=== PATIENT | female | born 1975 | race African-American/Black ===

== ENCOUNTER 2017-03-09 10:14 | Inpatient (IN) | payer OTHER ==
[2017-03-09 11:07] VITALS: BMI 15.4
[2017-03-09] MEDS ORDERED: ACETAMINOPHEN 325 MG TABLET (FP) PO PRN (14:01)
[2017-03-09] MEDS ORDERED: hydrOXYzine PAMOATE 50 MG CAPSULE (FP) PO PRN (14:01)
[2017-03-09] MEDS ORDERED: MENTHOL/PHENOL 1 EACH UD MM PRN (14:01)
[2017-03-09] MEDS ORDERED: IBUPROFEN 400 MG TABLET (FP) PO PRN (14:01)
[2017-03-09] MEDS ORDERED: MAGNESIUM HYDROX 2400MG/30ML ORAL SUSPENSION 30 ML CUP PO PRN (14:01)
[2017-03-09] MEDS ORDERED: MAG HYDROX/AL HYDROX/SIMETH 30 ML UNIT-DOSE CUP PO PRN (14:01)
[2017-03-09] MEDS ORDERED: guaiFENesin/D-METHORPHAN HB 10 ML UNIT-DOSE CUPS PO PRN (14:01)
[2017-03-09] MEDS ORDERED: chlordiazePOXIDE HCL 25 MG CAPSULE PO PRN (14:01)
[2017-03-09] MEDS ORDERED: LOPERAMIDE HCL 2 MG CAPSULE PO PRN (14:01)
[2017-03-09] MEDS ORDERED: NICOTINE POLACRILEX 2 MG GUM BUC PRN (14:01)
[2017-03-09] MEDS ORDERED: P-EPHED 60MG/TRIPROLIDI 2.5MG TABLET PO PRN (14:01)
[2017-03-09] MEDS ORDERED: MAGNESIUM CITRATE 300 ML BOTTLE PO PRN (14:01)
--- NOTE | 2017-03-09 14:11 | HP ---
CIWA Score - CIWA Score Nausea/Vomitin Muscle Tremors: 4-Moderate,w/Arms Extend Anxiety: 4-Mod. Anxious/Guarded Agitation: 4-Moderately Restless Paroxysmal Sweats: 3 Orientation: 0-Oriented Tacttile Disturbances: 0-None Auditory Disturbances: 0-None Visual Disturbances: 0-None Headache: 0-None Present CIWA-Ar Total Score: 17 Admission ROS BHS - HPI Chief Complaint: Withdrawal sx. Allergies/Adverse Reactions: Allergies Allergy/AdvReac Type Severity Reaction Status Date / Time apple Allergy Severe Difficulty Verified 03/09/17 13:20 Breathing peanut Allergy Severe Difficulty Verified 03/09/17 13:20 Breathing History of Present Illness: 41 y/o woman with a long hx. of alcoholism is admitted for detox.Pt. has been in previous detox,reports 11 months sobriety. She went to [facility] ED last night for detox,however they don't have detox there,kept her over night and sent her here today.AIDS,non-compliant with meds, was on bactrim ds & HAART. Exam Limitations: No Limitations - Ebola screening Have you traveled outside of the country in the last 21 days: No (N) Have you had contact with anyone from an Ebola affected area: No Have you been sick,other than usual withdrawal symptoms: No Do you have a fever: No - Review of Systems Constitutional: Diaphoresis EENT: reports: No Symptoms Reported Respiratory: reports: No Symptoms reported Cardiac: reports: No Symptoms Reported, Chest Tightness GI: reports: No Symptoms Reported, Nausea, Abdominal cramping : reports: No Symptoms Reported Musculoskeletal: reports: Back Pain Integumentary: reports: Sweating Neuro: reports: Tremors Endocrine: reports: No Symptoms Reported Hematology: reports: No Symptoms Reported Psychiatric: reports: No Sypmtoms Reported Other Systems: Reviewed and Negative Patient History - Patient Medical History Hx Anemia: No Hx Asthma: Yes Hx Chronic Obstructive Pulmonary Disease (COPD): No Hx Cancer: No Hx Cardiac Disorders: No Hx Congestive Heart Failure: No Hx Hypertension: No Hx Hypercholesterolemia: No Hx Pacemaker: No HX Cerebrovascular Accident: No Hx Seizures: No Hx Dementia: No Hx Diabetes: No Hx Gastrointestinal Disorders: No Hx Liver Disease: No Hx Genitourinary Disorders: No Hx Sexually Transmitted Disorders: No Hx Renal Disease (ESRD): No Hx Thyroid Disease: No Hx Human Immunodeficiency Virus (HIV): Yes (SINCE 2005, NO FIGUEROA MEDS,CD4+ less than 200 = AIDS,thrush.) Hx Hepatitis C: No Hx Depression: No Hx Suicide Attempt: No Hx Bipolar Disorder: No Hx Schizophrenia: No - Patient Surgical History Past Surgical History: No - PPD History Previous Implant?: Yes Documented Results: Negative w/proof Implanted On Prior R Admission?: Yes Date: 06/26/15 PPD to be Administered?: Yes - Reproductive History Last Menstrual Period: 12/24/16 Patient : No - Smoking Cessation Smoking history: Current every day smoker Have you smoked in the past 12 months: Yes Aproximately how many cigarettes per day: 10 Cigars Per Day: 0 Hx Chewing Tobacco Use: No Initiated information on smoking cessation: Yes 'Breaking Loose' booklet given: 03/09/17 - Substance & Tx. History Hx Alcohol Use: Yes Hx Substance Use: Yes Substance Use Type: Alcohol, Marijuana Hx Substance Use Treatment: Yes (Detox) - Substances Abused Alcohol Route: Oral Frequency: Daily Amount used: bEER(1-2 6 PKS-24OZ CANS) Age of first use: 21 Date of Last Use: 03/09/17 Marijuana/Hashish Route: Smoking Frequency: Daily Amount used: 5 BLUNTS Age of first use: 15 Date of Last Use: 03/08/17 Family Disease History - Family Disease History Family Disease History: Other: Father (asthma,Alcoholic), Mother (Alcoholic) Admission Physical Exam BHS - Vital Signs Vital Signs: Vital Signs - 24 hr 03/09/17 10:59 Temperature 97.1 F L Pulse Rate 100 H Respiratory 16 Rate Blood Pressure 107/75 - Physical General Appearance: Yes: Tremorous, Irritable, Sweating, Anxious HEENTM: Yes: Thrush, Other (tongue with thrush) Respiratory: Yes: Chest Non-Tender, Lungs Clear, Normal Breath Sounds Neck: Yes: Supple Breast: Yes: Breast Exam Deferred Cardiology: Yes: Regular Rhythm, Regular Rate, S1, S2 Abdominal: Yes: Normal Bowel Sounds, Non Tender, Soft Genitourinary: Yes: Within Normal Limits Back: Yes: Within Normal Limits Musculoskeletal: Yes: full range of Motion Extremities: Yes: Tremors Neurological: Yes: Fully Oriented, Alert Integumentary: Yes: Diaphoresis Lymphatic: Yes: Within Normal Limits - Diagnostic (1) Cannabis dependence Current Visit: Yes Status: Chronic (2) Alcohol dependence with uncomplicated withdrawal Current Visit: Yes Status: Acute (3) AIDS (acquired immune deficiency syndrome) Current Visit: Yes Status: Acute (4) Oral thrush Current Visit: Yes Status: Chronic Cleared for Admission [facility] - Detox or Rehab [facility] Level of Care: Medically Managed Detox Regimen/Protocol: Librium [facility] Breath Alcohol Content Breath Alcohol Content: 0.013 Urine Pregancy Test - Result Urine Test Results: Negative- NO Line Present Urine Drug Screen - Results Drug Screen Negative: No Urine Drug Screen Results: THC-Marijuana, BZO-Benzodiazepines, TCA-Tricyclic Antidepress
[2017-03-09] MEDS ORDERED: FLUCONAZOLE 100 MG TABLET (UD) PO ONE (14:19)
[2017-03-09] MEDS ORDERED: chlordiazePOXIDE HCL 25 MG CAPSULE PO ONE (14:45)
[2017-03-09] MEDS: SULFAMETHOXAZOLE/TRIMETHOPRIM 800MG/160MG D.S. TABLET PO SCH (15:16)
[2017-03-09] MEDS: NICOTINE 21 MG/24 HOURS TOPICAL PATCH TD SCH (15:20)
[2017-03-09 16:05] LABS: URINE APPEARANCE CLEAR; URINE BILIRUBIN NEGATIVE (NEGATIVE); URINE BLOOD NEGATIVE (NEGATIVE); URINE COLOR YELLOW; URINE GLUCOSE (UA) NEGATIVE (NEGATIVE); URINE KETONE NEGATIVE (NEGATIVE); URINE NITRITE NEGATIVE (NEGATIVE); URINE PROTEIN NEGATIVE (NEGATIVE); URINE UROBILINOGEN NEGATIVE E.U./dl (0.2-1.0)
[2017-03-09 16:08] LABS: URINE LEUK ESTERASE 3+ (NEGATIVE)
[2017-03-09 16:11] LABS: URINE BACTERIA RARE /hpf (NONE SEEN); URINE RBC 1 /hpf (0-3); URINE WBC 9 /hpf (3-5)
[2017-03-09] MEDS: ALBUTEROL SO4 6.7 GM HFA INHALER IH PRN ×2 (17:28→20:58)
[2017-03-09] MEDS: chlordiazePOXIDE HCL 25 MG CAPSULE PO SCH ×2 (17:33→22:44)
[2017-03-09] MEDS: THIAMINE HCL 100 MG TABLET (FP) PO SCH (22:43)
[2017-03-09] MEDS: diphenhydrAMINE HCL 50 MG CAPSULE PO PRN (22:44)
[2017-03-10] MEDS: chlordiazePOXIDE HCL 25 MG CAPSULE PO SCH ×4 (06:05→22:53)
--- NOTE | 2017-03-10 09:12 | PN ---
[facility] CIWA - CIWA Score Nausea/Vomitin-No Nausea/No Vomiting Muscle Tremors: 4-Moderate,w/Arms Extend Anxiety: 3 Agitation: 3 Paroxysmal Sweats: 3 Orientation: 0-Oriented Tacttile Disturbances: 0-None Auditory Disturbances: 0-None Visual Disturbances: 0-None Headache: 0-None Present CIWA-Ar Total Score: 13 S Progress Note (SOAP) Subjective: irritable sweats i need to see dietary for foods I normally eat agitation interrupted sleep Objective: 03/10/17 09:12 Vital Signs Temperature 97.2 F L 03/10/17 06:00 Pulse Rate 84 03/10/17 06:00 Respiratory Rate 16 03/10/17 06:00 Blood Pressure 128/91 03/10/17 06:00 O2 Sat by Pulse Oximetry (%) Laboratory Tests 03/09/17 15:55 Urine Color Yellow Urine Appearance Clear Urine pH 7.0 Ur Specific [place] <= 1.005 Urine Protein Negative Urine Glucose (UA) Negative Urine Ketones Negative Urine Blood Negative Urine Nitrite Negative Urine Bilirubin Negative Urine Urobilinogen Negative Ur Leukocyte Esterase 3+ H Urine RBC 1 Urine WBC 9 Ur Epithelial Cells Few Urine Bacteria Rare labs pending awake/alert ambulating no acute distress Assessment: 03/10/17 09:13 withdrawal sx Plan: continue detox increase fluids dietary client insights consultant ordered
[2017-03-10] MEDS: FLUCONAZOLE 100 MG TABLET (UD) PO SCH (10:34)
[2017-03-10] MEDS: PRENATAL VITAMINS W/ FOLIC ACID TABLET (FP) PO SCH (10:34)
[2017-03-10] MEDS: SULFAMETHOXAZOLE/TRIMETHOPRIM 800MG/160MG D.S. TABLET PO SCH (10:34)
[2017-03-10] MEDS: NICOTINE 21 MG/24 HOURS TOPICAL PATCH TD SCH (10:36)
[2017-03-10 12:14] LABS: MCHC 32.9 g/dl (32.0-36.0); MEAN CELL VOLUME 100.4 fl (80-96); MEAN PLT VOLUME 8.6 fl (7.5-11.1); PLATELET COUNT 237 K/MM3 (134-434); RDW 12.7 % (11.6-15.6); WHITE BLOOD COUNT 2.8 K/mm3 (4.0-10.0)
[2017-03-10 12:16] LABS: ALBUMIN 2.7 g/dl (3.4-5.0); ANION GAP 13 (8-16); BILIRUBIN,TOTAL 0.7 mg/dL (0.2-1.0); CALCIUM 8.6 mg/dL (8.5-10.1); CO2 25 mmol/L (21-32); CREATININE 0.9 mg/dL (0.55-1.02); GLUCOSE,RANDOM 100 mg/dL (74-106); SGOT/AST 80 U/L (15-37); SGPT/ALT 46 U/L (12-78); TOT PROT 8.3 g/dl (6.4-8.2)
[2017-03-10 12:17] LABS: ALK PHOS 206 U/L (45-117)
--- NOTE | 2017-03-10 14:23 | EKG ---
Test Reason : Blood Pressure : / mmHG Vent. Rate : 088 BPM Atrial Rate : 088 BPM P-R Int : 146 ms QRS Dur : 082 ms QT Int : 360 ms P-R-T Axes : 069 065 068 degrees QTc Int : 435 ms NORMAL SINUS RHYTHM NORMAL ECG NO PREVIOUS ECGS AVAILABLE Confirmed by AYANNA LARIOS MD ([id number]) on 03/10/2017 2:22:36 PM Referred By: Confirmed By:AYANNA LARIOS MD
--- NOTE | 2017-03-10 14:49 | CONSULT ---
[facility] Psychiatric Consult - Data Date of interview: 03/10/17 Admission source: [facility] Identifying data: Readmission to [facility] for this 41 y/o AA female seeking detox treatment for alcohol and cannabis dependence.Patient is single,a mother of two,domiciled,unemployed and reportedly deprived of any source of income. Substance Abuse History: - Smoking Cessation. Smoking history: Current every day smoker. Have you smoked in the past 12 months: Yes. Aproximately how many cigarettes per day: 10. Cigars Per Day: 0. Hx Chewing Tobacco Use: No. Initiated information on smoking cessation: Yes. 'Breaking Loose' booklet given : 03/09/17. - Substance & Tx. History. Hx Alcohol Use: Yes. Hx Substance Use : Yes. Substance Use Type: Alcohol, Marijuana. Hx Substance Use Treatment: Yes (Detox). - Substances Abused. Alcohol. Route: Oral. Frequency: Daily. Amount used: bEER(1-2 6 PKS-24OZ CANS). Age of first use: 21. Date of Last Use: 03/09/17. Marijuana/Hashish. Route: Smoking. Frequency: Daily. Amount used: 5 BLUNTS. Age of first use: 15. Date of Last Use: 03/08/17. Confirmed by patient. Medical History: HIV infection since 2005 (non-compliant with ART medications) and bronchial asthma. Psychiatric History: Patient denies history of psychiatric hospitalizations.Treated with seroquel for a brief period of time (to address insomnia).Diagnosed with MDD and Anxiety Disorder at a detox/rehab facility ( name not recalled by the patient) approximately a year ago.Ms Nieto has been lost to follow up for several months.She requests the addition of seroquel to the current regimen.Patient denies history of suicide attempts. Physical/Sexual Abuse/Trauma History: Patient denies. Additional Comment: Urine Drug Screen Results: THC-Marijuana, BZO- Benzodiazepines, TCA-Tricyclic Antidepressant.Noted. Mental Status Exam - Mental Status Exam Alert and Oriented to: Time, Place, Person Cognitive Function: Good Patient Appearance: Unkempt (frail habitus), Disheveled Mood: Nervous, Withdrawn Affect: Mood Congruent Patient Behavior: Fatigued, Cooperative Speech Pattern: Clear Voice Loudness: Normal Thought Process: Goal Oriented Thought Disorder: Not Present Hallucinations: Denies Suicidal Ideation: Denies Homicidal Ideation: Denies Insight/Judgement: Poor Sleep: Poorly, Difficulty falling asleep Appetite: Poor, Weight loss Muscle strength/Tone: Normal Gait/Station: Normal Psychiatric Findings - Problem List ([place] 1, 2,3) (1) Alcohol dependence with uncomplicated withdrawal Current Visit: Yes Status: Acute (2) Cannabis dependence Current Visit: Yes Status: Chronic (3) Nicotine dependence Current Visit: Yes Status: Chronic (4) Substance induced mood disorder Current Visit: Yes Status: Acute (5) AIDS (acquired immune deficiency syndrome) Current Visit: Yes Status: Chronic (6) Asthma Current Visit: Yes Status: Chronic (7) Cachectic Current Visit: Yes Status: Chronic (8) Oral thrush Current Visit: Yes Status: Chronic (9) Insomnia Current Visit: Yes Status: Acute - Initial Treatment Plan Initial Treatment Plan: Psychoeducation.Detoxification.Seroquel 25 mg po hs.Side effects/benefits are discussed with patient.She agrees with this plan of care.Observation.
[2017-03-10] MEDS: ALBUTEROL SO4 6.7 GM HFA INHALER IH PRN ×2 (18:06→22:53)
[2017-03-10] MEDS: THIAMINE HCL 100 MG TABLET (FP) PO SCH (22:53)
[2017-03-10] MEDS: QUEtiapine FUMARATE 25 MG TABLET (FP) PO SCH (22:53)
[2017-03-10] MEDS: diphenhydrAMINE HCL 50 MG CAPSULE PO PRN (22:53)
[2017-03-11] MEDS: chlordiazePOXIDE HCL 25 MG CAPSULE PO SCH ×2 (06:06→10:32)
[2017-03-11] MEDS: ALBUTEROL SO4 6.7 GM HFA INHALER IH PRN ×2 (06:07→22:30)
--- NOTE | 2017-03-11 09:20 | PN ---
BHS Progress Note (SOAP) Subjective: sweats, lbp Objective: 03/11/17 09:18 Vital Signs Temperature 96.1 F L 03/11/17 06:00 Pulse Rate 92 H 03/11/17 06:00 Respiratory Rate 16 03/11/17 06:00 Blood Pressure 101/76 03/11/17 06:00 O2 Sat by Pulse Oximetry (%) Laboratory Tests 03/09/17 03/10/17 03/10/17 15:55 07:00 07:00 WBC 2.8 L RBC 3.98 Hgb 13.1 D Hct 39.9 MCV 100.4 H MCHC 32.9 RDW 12.7 Plt Count 237 D MPV 8.6 Sodium 133 L Potassium 4.1 Chloride 95 L Carbon Dioxide 25 Anion Gap 13 BUN 12 D Creatinine 0.9 D Creat Clearance w eGFR > 60 Random Glucose 100 Calcium 8.6 Total Bilirubin 0.7 D AST 80 H ALT 46 D Alkaline Phosphatase 206 H D Total Protein 8.3 H Albumin 2.7 L D Urine Color Yellow Urine Appearance Clear Urine pH 7.0 Ur Specific [place] <= 1.005 Urine Protein Negative Urine Glucose (UA) Negative Urine Ketones Negative Urine Blood Negative Urine Nitrite Negative Urine Bilirubin Negative Urine Urobilinogen Negative Ur Leukocyte Esterase 3+ H Urine RBC 1 Urine WBC 9 Ur Epithelial Cells Few Urine Bacteria Rare RPR Titer 03/10/17 07:00 WBC RBC Hgb Hct MCV MCHC RDW Plt Count MPV Sodium Potassium Chloride Carbon Dioxide Anion Gap BUN Creatinine Creat Clearance w eGFR Random Glucose Calcium Total Bilirubin AST ALT Alkaline Phosphatase Total Protein Albumin Urine Color Urine Appearance Urine pH Ur Specific [place] Urine Protein Urine Glucose (UA) Urine Ketones Urine Blood Urine Nitrite Urine Bilirubin Urine Urobilinogen Ur Leukocyte Esterase Urine RBC Urine WBC Ur Epithelial Cells Urine Bacteria RPR Titer Nonreactive 03/11/17 11:34 pt aox3 in nad ambulating Assessment: 03/11/17 09:19 withdrawal sx;s lbp 03/11/17 11:34 Plan: cont. detox increase fluids lidocaine patch ensure bid
[2017-03-11] MEDS: FLUCONAZOLE 100 MG TABLET (UD) PO SCH (10:32)
[2017-03-11] MEDS: SULFAMETHOXAZOLE/TRIMETHOPRIM 800MG/160MG D.S. TABLET PO SCH (10:32)
[2017-03-11] MEDS: PRENATAL VITAMINS W/ FOLIC ACID TABLET (FP) PO SCH (10:32)
[2017-03-11] MEDS: NICOTINE 21 MG/24 HOURS TOPICAL PATCH TD SCH (10:35)
[2017-03-11] MEDS ORDERED: LIDOCAINE 5% TOPICAL PATCH TP ONE (11:36)
[2017-03-11] MEDS: chlordiazePOXIDE 5 MG CAPSULE PO SCH ×2 (17:24→22:27)
[2017-03-11] MEDS ORDERED: LIDOCAINE PATCH REMOVAL MC SCH (22:00)
[2017-03-11] MEDS: QUEtiapine FUMARATE 25 MG TABLET (FP) PO SCH (22:27)
[2017-03-11] MEDS: diphenhydrAMINE HCL 50 MG CAPSULE PO PRN (22:27)
[2017-03-11] MEDS: THIAMINE HCL 100 MG TABLET (FP) PO SCH (22:27)
[2017-03-11] MEDS: LIDOCAINE PATCH REMOVAL MC SCH (22:30)
[2017-03-12] MEDS: chlordiazePOXIDE 5 MG CAPSULE PO SCH ×2 (05:46→11:03)
[2017-03-12] MEDS: ALBUTEROL SO4 6.7 GM HFA INHALER IH PRN ×2 (09:22→22:43)
[2017-03-12] MEDS: SULFAMETHOXAZOLE/TRIMETHOPRIM 800MG/160MG D.S. TABLET PO SCH (11:03)
[2017-03-12] MEDS: FLUCONAZOLE 100 MG TABLET (UD) PO SCH (11:03)
[2017-03-12] MEDS: PRENATAL VITAMINS W/ FOLIC ACID TABLET (FP) PO SCH (11:03)
[2017-03-12] MEDS: LIDOCAINE 5% TOPICAL PATCH TP SCH (11:05)
[2017-03-12] MEDS: NICOTINE 21 MG/24 HOURS TOPICAL PATCH TD SCH (11:06)
--- NOTE | 2017-03-12 11:41 | PN ---
BHS Progress Note (SOAP) Subjective: agitation interrupted sleep Objective: 03/12/17 11:40 Vital Signs Temperature 97.5 F L 03/12/17 10:02 Pulse Rate 106 H 03/12/17 10:02 Respiratory Rate 20 03/12/17 10:02 Blood Pressure 102/73 03/12/17 10:02 O2 Sat by Pulse Oximetry (%) awake/alert ambulating no acute distress Assessment: 03/12/17 11:40 mild withdrawal sx Plan: continue detox ensure bid d/c in am
[2017-03-12] MEDS: chlordiazePOXIDE HCL 10 MG CAPSULE PO SCH ×2 (17:25→22:41)
[2017-03-12] MEDS: QUEtiapine FUMARATE 25 MG TABLET (FP) PO SCH (22:41)
[2017-03-12] MEDS: diphenhydrAMINE HCL 50 MG CAPSULE PO PRN (22:41)
[2017-03-12] MEDS: LIDOCAINE PATCH REMOVAL MC SCH (22:41)
[2017-03-12] MEDS: THIAMINE HCL 100 MG TABLET (FP) PO SCH (22:41)
[2017-03-13] MEDS: chlordiazePOXIDE HCL 10 MG CAPSULE PO SCH (05:45)
[2017-03-13] MEDS: ALBUTEROL SO4 6.7 GM HFA INHALER IH PRN ×2 (05:47→09:47)
[2017-03-13 07:41] VITALS: BP 95/66; PULSE 102; TEMP 97.9
[2017-03-13] MEDS: SULFAMETHOXAZOLE/TRIMETHOPRIM 800MG/160MG D.S. TABLET PO SCH (09:43)
[2017-03-13] MEDS: FLUCONAZOLE 100 MG TABLET (UD) PO SCH (09:43)
[2017-03-13] MEDS: PRENATAL VITAMINS W/ FOLIC ACID TABLET (FP) PO SCH (09:44)
--- NOTE | 2017-03-13 09:46 | DS ---
[facility] Detox Discharge Summary Admission Date: 03/09/17 Discharge Date: 03/13/17 - History Present History: Alcohol Dependence, Cannabis Dependence, Cocaine Dependence - Physical Exam Results Vital Signs: Vital Signs Temperature 97.9 F 03/13/17 07:40 Pulse Rate 102 H 03/13/17 07:40 Respiratory Rate 18 03/13/17 07:40 Blood Pressure 95/66 03/13/17 07:40 O2 Sat by Pulse Oximetry (%) - Treatment Hospital Course: Detox Protocol Followed, Detoxed Safely, Responded well, Discharged Condition Good, Rehab Referral Accepted - Medication Discharge Medications: Ambulatory Orders Albuterol Sulfate Inhaler - [Ventolin Hfa *Inhaler*] 2 inh IH Q4H PRN 05/10/13 - Diagnosis (1) Alcohol dependence with uncomplicated withdrawal Current Visit: Yes Status: Chronic (2) Insomnia Current Visit: Yes Status: Acute (3) Substance induced mood disorder Current Visit: Yes Status: Acute (4) AIDS (acquired immune deficiency syndrome) Current Visit: Yes Status: Chronic (5) Asthma Current Visit: Yes Status: Chronic Qualifiers: Asthma severity: mild intermittent (6) Cachectic Current Visit: Yes Status: Chronic (7) Cannabis dependence Current Visit: Yes Status: Chronic (8) Nicotine dependence Current Visit: Yes Status: Chronic Qualifiers: Nicotine product type: cigarettes Substance use status: uncomplicated Qualified Code(s): F17.210 - Nicotine dependence, cigarettes, uncomplicated (9) Oral thrush Current Visit: Yes Status: Chronic (10) Alcohol-induced mood disorder Current Visit: No Status: Chronic (11) Alcohol-induced sleep disorder Current Visit: No Status: Chronic (12) Cocaine abuse Current Visit: Yes Status: Chronic (13) Depression Current Visit: No Status: Chronic (14) HIV (human immunodeficiency virus infection) Current Visit: No Status: Chronic - AMA Did Patient Leave Against Medical Advice: No
[2017-03-13] MEDS: LIDOCAINE 5% TOPICAL PATCH TP SCH (09:50)
[2017-03-13] MEDS: NICOTINE 21 MG/24 HOURS TOPICAL PATCH TD SCH (09:50)
== END 2017-03-13 10:13 | disposition home or self-care (01) | DRG 775 ==
LOC: YASAS 10:14 → Y6N 13:45
PROVIDERS: ADMIT Internal Medicine Addiction Medicine; ATTEND Internal Medicine Addiction Medicine
PROC: HZ2ZZZZ Detoxification Services for Substance Abuse Treatment (ICD-10-PCS; principal; 2017-03-13)
DX: F10.230 Alcohol dependence with withdrawal, uncomplicated (principal); F12.20 Cannabis dependence, uncomplicated; F17.210 Nicotine dependence, cigarettes, uncomplicated; F19.24 Other psychoactive substance dependence with psychoactive substance-induced mood disorder; F10.24 Alcohol dependence with alcohol-induced mood disorder; F10.282 Alcohol dependence with alcohol-induced sleep disorder; F32.9 Major depressive disorder, single episode, unspecified; B20 Human immunodeficiency virus [HIV] disease; B37.0 Candidal stomatitis
CPT/HCPCS: 36415; 80053; 81003; 81015; 85027; 86593; 93005; 93010

== ENCOUNTER 2017-06-05 10:12 | Inpatient (IN) | payer OTHER ==
[2017-06-05 10:55] VITALS: BMI 19.3
--- NOTE | 2017-06-05 13:59 | HP ---
CIWA Score - CIWA Score Nausea/Vomitin-No Nausea/No Vomiting Muscle Tremors: 4-Moderate,w/Arms Extend Anxiety: 3 Agitation: 4-Moderately Restless Paroxysmal Sweats: 3 Orientation: 0-Oriented Tacttile Disturbances: 0-None Auditory Disturbances: 0-None Visual Disturbances: 0-None Headache: 0-None Present CIWA-Ar Total Score: 14 Admission ROS BHS - HPI Chief Complaint: I am here to detox. Allergies/Adverse Reactions: Allergies Allergy/AdvReac Type Severity Reaction Status Date / Time apple Allergy Severe Difficulty Verified 06/05/17 11:26 Breathing peanut Allergy Severe Difficulty Verified 06/05/17 11:26 Breathing History of Present Illness: pt is a 42yr old female with a history of alcohol dependence seeking detox for treatment. Exam Limitations: No Limitations - Ebola screening Have you traveled outside of the country in the last 21 days: No Have you had contact with anyone from an Ebola affected area: No Have you been sick,other than usual withdrawal symptoms: No Do you have a fever: No - Review of Systems Constitutional: Chills, Diaphoresis, Night Sweats EENT: reports: No Symptoms Reported Respiratory: reports: No Symptoms reported Cardiac: reports: No Symptoms Reported GI: reports: Poor Appetite, Poor Fluid Intake : reports: No Symptoms Reported Musculoskeletal: reports: No Symptoms Reported Integumentary: reports: Flushing, Sweating Neuro: reports: Tingling, Tremors Endocrine: reports: Excessive Sweating, Flushing, Intolerance to Cold, Intolerance to Heat Hematology: reports: No Symptoms Reported Psychiatric: reports: Judgement Intact, Mood/Affect Appropiate, Orientated x3, Agitated, Anxious Other Systems: Reviewed and Negative Patient History - Patient Medical History Hx Anemia: No Hx Asthma: Yes Hx Chronic Obstructive Pulmonary Disease (COPD): No Hx Cancer: No Hx Cardiac Disorders: No Hx Congestive Heart Failure: No Hx Hypertension: Yes Hx Hypercholesterolemia: No Hx Pacemaker: No HX Cerebrovascular Accident: No Hx Seizures: No Hx Dementia: No Hx Diabetes: No Hx Gastrointestinal Disorders: No Hx Liver Disease: No Hx Genitourinary Disorders: No Hx Sexually Transmitted Disorders: No Hx Renal Disease (ESRD): No Hx Thyroid Disease: No Hx Human Immunodeficiency Virus (HIV): Yes (SINCE 2005, NO FIGUEROA MEDS,CD4+ less than 200 = AIDS,thrush.) Hx Hepatitis C: No Hx Depression: Yes Hx Suicide Attempt: No Hx Bipolar Disorder: No Hx Schizophrenia: No - Patient Surgical History Past Surgical History: No - PPD History Previous Implant?: Yes Documented Results: Negative w/proof Implanted On Prior R Admission?: Yes Date: 03/11/17 PPD to be Administered?: No - Reproductive History Patient is a Female of Child Bearing Age (11 -55 yrs old): Yes Last Menstrual Period: 04/23/17 Patient : No - Smoking Cessation Smoking history: Current every day smoker Have you smoked in the past 12 months: Yes Aproximately how many cigarettes per day: 10 Cigars Per Day: 0 Hx Chewing Tobacco Use: No Initiated information on smoking cessation: Yes 'Breaking Loose' booklet given: 06/05/17 - Substance & Tx. History Hx Alcohol Use: Yes Hx Substance Use: No Substance Use Type: Alcohol Hx Substance Use Treatment: Yes (last detox 02/2017) - Substances Abused Alcohol Route: Oral Frequency: Daily Amount used: vodka(1/2 pint)/beer(3-24 oz cans) Age of first use: 21 Date of Last Use: 06/05/17 Family Disease History - Family Disease History Family Disease History: Other: Father (asthma,Alcoholic), Mother (Alcoholic) Admission Physical Exam BHS - Vital Signs Vital Signs: Vital Signs - 24 hr 06/05/17 10:51 Temperature 97.9 F Pulse Rate 95 H Respiratory 20 Rate Blood Pressure 150/90 - Physical General Appearance: Yes: Appropriately Dressed, Moderate Distress, Thin, Tremorous, Irritable, Sweating, Anxious HEENTM: Yes: Hearing grossly Normal, Normal Voice Respiratory: Yes: Lungs Clear, Normal Breath Sounds, No Respiratory Distress Neck: Yes: Within Normal Limits, No masses,lesions,Nodules Breast: Yes: Within Normal Limits Cardiology: Yes: Regular Rhythm, Regular Rate, S1, S2 Abdominal: Yes: Normal Bowel Sounds, Non Tender, Soft Genitourinary: Yes: Within Normal Limits Back: Yes: Normal Inspection Musculoskeletal: Yes: full range of Motion, Back pain Extremities: Yes: Normal Capillary Refill, Normal Inspection, Tremors Neurological: Yes: Fully Oriented, Alert, Normal Response Integumentary: Yes: Normal Color, Diaphoresis Lymphatic: Yes: Within Normal Limits - Diagnostic (1) Hypertension Current Visit: Yes Status: Chronic Qualifiers: Hypertension type: essential hypertension Qualified Code(s): I10 - Essential (primary) hypertension (2) Alcohol dependence with uncomplicated withdrawal Current Visit: Yes Status: Chronic (3) Asthma Current Visit: Yes Status: Chronic Qualifiers: Asthma severity: mild intermittent Asthma complication type: uncomplicated Qualified Code(s): J45.20 - Mild intermittent asthma, uncomplicated (4) Depression Current Visit: No Status: Chronic (5) HIV (human immunodeficiency virus infection) Current Visit: Yes Status: Chronic Comment: has not been taking any antivirals within the past year. pt met with her PMD, blood was drawn to check viral load and CD4 count. results pending. (6) Nicotine dependence Current Visit: Yes Status: Chronic Qualifiers: Nicotine product type: cigarettes Substance use status: uncomplicated Qualified Code(s): F17.210 - Nicotine dependence, cigarettes, uncomplicated Cleared for Admission [facility] - Detox or Rehab [facility] Level of Care: Medically Managed Detox Regimen/Protocol: Librium S Breath Alcohol Content Breath Alcohol Content: 0.012 Urine Pregancy Test - Result Urine Test Results: Negative- NO Line Present Urine Drug Screen - Results Drug Screen Negative: Yes
[2017-06-05] MEDS ORDERED: MENTHOL/PHENOL 1 EACH UD MM PRN (14:01)
[2017-06-05] MEDS ORDERED: IBUPROFEN 400 MG TABLET (FP) PO PRN (14:01)
[2017-06-05] MEDS ORDERED: MAGNESIUM CITRATE 300 ML BOTTLE PO PRN (14:01)
[2017-06-05] MEDS ORDERED: hydrOXYzine PAMOATE 50 MG CAPSULE (FP) PO PRN (14:01)
[2017-06-05] MEDS ORDERED: MAG HYDROX/AL HYDROX/SIMETH 30 ML UNIT-DOSE CUP PO PRN (14:01)
[2017-06-05] MEDS ORDERED: guaiFENesin/D-METHORPHAN HB 10 ML UNIT-DOSE CUPS PO PRN (14:01)
[2017-06-05] MEDS ORDERED: MAGNESIUM HYDROX 2400MG/30ML ORAL SUSPENSION 30 ML CUP PO PRN (14:01)
[2017-06-05] MEDS ORDERED: P-EPHED 60MG/TRIPROLIDI 2.5MG TABLET PO PRN (14:01)
[2017-06-05] MEDS ORDERED: LOPERAMIDE HCL 2 MG CAPSULE PO PRN (14:01)
[2017-06-05] MEDS ORDERED: ACETAMINOPHEN 325 MG TABLET (FP) PO PRN (14:01)
[2017-06-05] MEDS ORDERED: ALBUTEROL SO4 6.7 GM HFA INHALER IH PRN (14:02)
[2017-06-05] MEDS ORDERED: chlordiazePOXIDE HCL 25 MG CAPSULE PO ONE (14:30)
--- NOTE | 2017-06-05 16:16 | EKG ---
Test Reason : Blood Pressure : / mmHG Vent. Rate : 077 BPM Atrial Rate : 077 BPM P-R Int : 156 ms QRS Dur : 088 ms QT Int : 388 ms P-R-T Axes : 046 060 047 degrees QTc Int : 439 ms NORMAL SINUS RHYTHM SEPTAL INFARCT , AGE UNDETERMINED ABNORMAL ECG Confirmed by MD ALEX, ELYSIA ([id number]) on 06/05/2017 4:16:33 PM Referred By: Confirmed By:ELYSIA JOHNSON MD
[2017-06-05] MEDS: chlordiazePOXIDE HCL 25 MG CAPSULE PO SCH ×2 (17:18→22:16)
[2017-06-05] MEDS: NICOTINE POLACRILEX 4 MG GUM BC PRN (17:20)
[2017-06-05 18:23] LABS: URINE APPEARANCE SLCLOUDY; URINE BILIRUBIN NEGATIVE (NEGATIVE); URINE BLOOD NEGATIVE (NEGATIVE); URINE COLOR YELLOW; URINE GLUCOSE (UA) NEGATIVE (NEGATIVE); URINE KETONE NEGATIVE (NEGATIVE); URINE NITRITE NEGATIVE (NEGATIVE); URINE PROTEIN NEGATIVE (NEGATIVE); URINE UROBILINOGEN NEGATIVE mg/dL (0.2-1.0)
[2017-06-05 18:24] LABS: URINE LEUK ESTERASE 3+ (NEGATIVE)
[2017-06-05 18:36] LABS: URINE MUCUS RARE; URINE RBC 1 /hpf (0-3); URINE WBC 67 /hpf (3-5)
[2017-06-05] MEDS: THIAMINE HCL 100 MG TABLET (FP) PO SCH (22:16)
[2017-06-05] MEDS: diphenhydrAMINE HCL 50 MG CAPSULE PO PRN (22:17)
[2017-06-06] MEDS: chlordiazePOXIDE HCL 25 MG CAPSULE PO SCH ×4 (05:53→22:20)
[2017-06-06] MEDS: amLODIPine BESYLATE 10 MG TABLET (FP) PO SCH (10:33)
[2017-06-06] MEDS: PRENATAL VITAMINS W/ FOLIC ACID TABLET (FP) PO SCH (10:33)
[2017-06-06] MEDS: FLUCONAZOLE 100 MG TABLET (UD) PO SCH (10:33)
[2017-06-06] MEDS: ASPIRIN 81 MG CHEWABLE TABLETS PO SCH (10:33)
[2017-06-06] MEDS: SULFAMETHOXAZOLE/TRIMETHOPRIM 800MG/160MG D.S. TABLET PO SCH (10:34)
[2017-06-06] MEDS: NICOTINE 21 MG/24 HOURS TOPICAL PATCH TD SCH (10:39)
[2017-06-06 10:49] LABS: ALBUMIN 4.1 g/dl (3.4-5.0); ANION GAP 10 (8-16); CALCIUM 8.8 mg/dL (8.5-10.1); CO2 25 mmol/L (21-32); CREATININE 0.6 mg/dL (0.55-1.02); GLUCOSE,RANDOM 85 mg/dL (74-106); MCH 33.2 pg (25.7-33.7); MCHC 33.3 g/dl (32.0-36.0); MEAN CELL VOLUME 99.8 fl (80-96); MEAN PLT VOLUME 8.4 fl (7.5-11.1); PLATELET COUNT 238 K/MM3 (134-434); SGOT/AST 72 U/L (15-37); SGPT/ALT 46 U/L (12-78); WHITE BLOOD COUNT 3.7 K/mm3 (4.0-10.0)
[2017-06-06 10:51] LABS: ALK PHOS 144 U/L (45-117); BILIRUBIN,TOTAL 0.3 mg/dL (0.2-1.0); TOT PROT 9.2 g/dl (6.4-8.2)
[2017-06-06] MEDS: LOSARTAN 50MG/HCTZ 12.5MG 1 TAB (FP) PO SCH (13:14)
--- NOTE | 2017-06-06 15:51 | PN ---
S CIWA - CIWA Score Nausea/Vomitin Muscle Tremors: 3 Anxiety: 3 Agitation: 2 Paroxysmal Sweats: 1-Minimal Palms Moist Orientation: 0-Oriented Tacttile Disturbances: 1-Very Mild Itch/Numbness Auditory Disturbances: 1-Very Mild Visual Disturbances: 0-None Headache: 2-Mild CIWA-Ar Total Score: 16 S Progress Note (SOAP) Subjective: ALERT,IRRITABLE,ANXIOUS,INTERRUPTED SLEEP,TREMOR Objective: 06/06/17 15:49 Vital Signs Temperature 97.9 F 06/06/17 14:59 Pulse Rate 89 06/06/17 14:59 Respiratory Rate 18 06/06/17 14:59 Blood Pressure 135/69 06/06/17 14:59 O2 Sat by Pulse Oximetry (%) EKG NSR NO CHEST PAIN,NO SOB,NO DIZZINESS Laboratory Last Values WBC 3.7 K/mm3 (4.0-10.0) L D 06/06/17 06:10 RBC 3.86 M/mm3 (3.60-5.2) 06/06/17 06:10 Hgb 12.8 GM/dL (10.7-15.3) 06/06/17 06:10 Hct 38.5 % (32.4-45.2) 06/06/17 06:10 MCV 99.8 fl (80-96) H 06/06/17 06:10 MCH 33.2 pg (25.7-33.7) 06/06/17 06:10 MCHC 33.3 g/dl (32.0-36.0) 06/06/17 06:10 RDW 13.0 % (11.6-15.6) 06/06/17 06:10 Plt Count 238 K/MM3 (134-434) 06/06/17 06:10 MPV 8.4 fl (7.5-11.1) 06/06/17 06:10 Sodium 140 mmol/L (136-145) 06/06/17 06:10 Potassium 3.9 mmol/L (3.5-5.1) 06/06/17 06:10 Chloride 105 mmol/L (98-107) D 06/06/17 06:10 Carbon Dioxide 25 mmol/L (21-32) 06/06/17 06:10 Anion Gap 10 (8-16) 06/06/17 06:10 BUN 11 mg/dL (7-18) 06/06/17 06:10 Creatinine 0.6 mg/dL (0.55-1.02) D 06/06/17 06:10 Creat Clearance w eGFR > 60 (>60) 06/06/17 06:10 Random Glucose 85 mg/dL (74-106) 06/06/17 06:10 Calcium 8.8 mg/dL (8.5-10.1) 06/06/17 06:10 Total Bilirubin 0.3 mg/dL (0.2-1.0) D 06/06/17 06:10 AST 72 U/L (15-37) H 06/06/17 06:10 ALT 46 U/L (12-78) 06/06/17 06:10 Alkaline Phosphatase 144 U/L (45-117) H D 06/06/17 06:10 Total Protein 9.2 g/dl (6.4-8.2) H 06/06/17 06:10 Albumin 4.1 g/dl (3.4-5.0) D 06/06/17 06:10 Urine Color Yellow 06/05/17 17:50 Urine Appearance Slcloudy 06/05/17 17:50 Urine pH 6.0 (5.0-8.0) 06/05/17 17:50 Ur Specific [place] 1.020 (1.005-1.025) 06/05/17 17:50 Urine Protein Negative (NEGATIVE) 06/05/17 17:50 Urine Glucose (UA) Negative (NEGATIVE) 06/05/17 17:50 Urine Ketones Negative (NEGATIVE) 06/05/17 17:50 Urine Blood Negative (NEGATIVE) 06/05/17 17:50 Urine Nitrite Negative (NEGATIVE) 06/05/17 17:50 Urine Bilirubin Negative (NEGATIVE) 06/05/17 17:50 Urine Urobilinogen Negative mg/dL (0.2-1.0) 06/05/17 17:50 Ur Leukocyte Esterase 3+ (NEGATIVE) H 06/05/17 17:50 Urine RBC 1 /hpf (0-3) 06/05/17 17:50 Urine WBC 67 /hpf (3-5) 06/05/17 17:50 Ur Epithelial Cells Many /hpf (FEW) 06/05/17 17:50 Urine Mucus Rare 06/05/17 17:50 RPR Titer Nonreactive (NONREACTIVE) 06/06/17 06:10 Assessment: 06/06/17 15:50 WITHDRAWAL SYMPTOM Plan: CONTINUE DETOX,UA
--- NOTE | 2017-06-06 18:09 | CONSULT ---
[facility] Psychiatric Consult - Data Date of interview: 06/06/17 Admission source: [facility] Identifying data: Another admission to [facility] for this 42 y/o AA female seeking detox treatment on for alcohol dependence.Patient is single,a mother of two,undomiciled,unemployed and supported on [facility] benefits. Substance Abuse History: Confirmed by patient in this interview. Smoking Cessation. Smoking history: Current every day smoker. Have you smoked in the past 12 months: Yes. Aproximately how many cigarettes per day: 10. Cigars Per Day: 0. Hx Chewing Tobacco Use: No. Initiated information on smoking cessation : Yes. 'Breaking Loose' booklet given: 06/05/17. - Substance & Tx. History. Hx Alcohol Use: Yes. Hx Substance Use: No. Substance Use Type: Alcohol. Hx Substance Use Treatment: Yes (last detox 02/2017). - Substances Abused. Alcohol. Route: Oral. Frequency: Daily. Amount used: vodka(1/2 pint)/beer(3- 24 oz cans). Age of first use: 21. Date of Last Use: 06/05/17 Medical History: HIV infection since 2005 (non-compliant with ART medications), hypertension and bronchial asthma. Psychiatric History: Patient denies history of psychiatric hospitalizations.No regular OPD care.Ms Nieto gets prescribed seroquel 100 mg/hs from detox/rehab institutions.She denies history of suicide attempts. Physical/Sexual Abuse/Trauma History: Patient denies history of abuse. Additional Comment: Drug Screen is negative. Mental Status Exam - Mental Status Exam Alert and Oriented to: Time, Place, Person Cognitive Function: Good Patient Appearance: Well Groomed (frail habitus) Mood: Nervous, Withdrawn Affect: Constricted Patient Behavior: Fatigued, Appropriate, Cooperative Speech Pattern: Clear, Appropriate Voice Loudness: Normal Thought Process: Goal Oriented Thought Disorder: Not Present Hallucinations: Denies Suicidal Ideation: Denies Homicidal Ideation: Denies Insight/Judgement: Poor Sleep: Poorly, Difficulty falling asleep (wants seroquel) Appetite: Poor, Weight loss Muscle strength/Tone: Normal Gait/Station: Normal Psychiatric Findings - Problem List ([place] 1, 2,3) (1) Alcohol dependence with uncomplicated withdrawal Status: Chronic (2) Nicotine dependence Status: Chronic Qualifiers: Nicotine product type: cigarettes Substance use status: uncomplicated Qualified Code(s): F17.210 - Nicotine dependence, cigarettes, uncomplicated (3) Substance induced mood disorder Status: Acute (4) Asthma Status: Chronic Qualifiers: Asthma severity: mild intermittent Asthma complication type: uncomplicated Qualified Code(s): J45.20 - Mild intermittent asthma, uncomplicated (5) HIV (human immunodeficiency virus infection) Status: Chronic Comment: has not been taking any antivirals within the past year. pt met with her PMD, blood was drawn to check viral load and CD4 count. results pending. (6) Hypertension Status: Chronic Qualifiers: Hypertension type: essential hypertension Qualified Code(s): I10 - Essential (primary) hypertension (7) Insomnia Status: Acute - Initial Treatment Plan Initial Treatment Plan: Psychoeducation.Detoxification.Seroquel 50 mg po hs.Side effects/benefits discussed with patient.Ms Nieto is in agreement with this careplan.Observation.
[2017-06-06] MEDS: QUEtiapine FUMARATE 100 MG TABLET (FP) PO SCH (19:57)
[2017-06-06] MEDS: NICOTINE POLACRILEX 4 MG GUM BC PRN (21:12)
[2017-06-06] MEDS: diphenhydrAMINE HCL 50 MG CAPSULE PO PRN (22:20)
[2017-06-06] MEDS: THIAMINE HCL 100 MG TABLET (FP) PO SCH (22:20)
[2017-06-07] MEDS: chlordiazePOXIDE HCL 25 MG CAPSULE PO SCH ×2 (05:21→10:16)
[2017-06-07] MEDS: NICOTINE POLACRILEX 4 MG GUM BC PRN ×3 (07:47→17:35)
[2017-06-07] MEDS: FLUCONAZOLE 100 MG TABLET (UD) PO SCH (10:16)
[2017-06-07] MEDS: ASPIRIN 81 MG CHEWABLE TABLETS PO SCH (10:16)
[2017-06-07] MEDS: SULFAMETHOXAZOLE/TRIMETHOPRIM 800MG/160MG D.S. TABLET PO SCH (10:16)
[2017-06-07] MEDS: PRENATAL VITAMINS W/ FOLIC ACID TABLET (FP) PO SCH (10:16)
[2017-06-07] MEDS: amLODIPine BESYLATE 10 MG TABLET (FP) PO SCH (10:16)
[2017-06-07] MEDS: LOSARTAN 50MG/HCTZ 12.5MG 1 TAB (FP) PO SCH (10:17)
[2017-06-07] MEDS: NICOTINE 21 MG/24 HOURS TOPICAL PATCH TD SCH (10:19)
[2017-06-07] MEDS: chlordiazePOXIDE HCL 25 MG CAPSULE PO PRN ×2 (12:58→21:19)
--- NOTE | 2017-06-07 15:00 | PN ---
S CIWA - CIWA Score Nausea/Vomitin Muscle Tremors: 3 Anxiety: 3 Agitation: 2 Paroxysmal Sweats: 1-Minimal Palms Moist Orientation: 0-Oriented Tacttile Disturbances: 1-Very Mild Itch/Numbness Auditory Disturbances: 1-Very Mild Visual Disturbances: 1-Very Mild Sensitivity Headache: 2-Mild CIWA-Ar Total Score: 17 BHS Progress Note (SOAP) Subjective: ALERT,IRRITABLE,ANXIOUS,INTERRUPTED SLEEP,TREMOR Objective: 06/07/17 14:59 Vital Signs Temperature 97.9 F 06/07/17 14:07 Pulse Rate 100 H 06/07/17 14:07 Respiratory Rate 18 06/07/17 14:07 Blood Pressure 120/84 06/07/17 14:07 O2 Sat by Pulse Oximetry (%) 06/07/17 14:59 Laboratory Last Values WBC 3.7 K/mm3 (4.0-10.0) L D 06/06/17 06:10 RBC 3.86 M/mm3 (3.60-5.2) 06/06/17 06:10 Hgb 12.8 GM/dL (10.7-15.3) 06/06/17 06:10 Hct 38.5 % (32.4-45.2) 06/06/17 06:10 MCV 99.8 fl (80-96) H 06/06/17 06:10 MCH 33.2 pg (25.7-33.7) 06/06/17 06:10 MCHC 33.3 g/dl (32.0-36.0) 06/06/17 06:10 RDW 13.0 % (11.6-15.6) 06/06/17 06:10 Plt Count 238 K/MM3 (134-434) 06/06/17 06:10 MPV 8.4 fl (7.5-11.1) 06/06/17 06:10 Sodium 140 mmol/L (136-145) 06/06/17 06:10 Potassium 3.9 mmol/L (3.5-5.1) 06/06/17 06:10 Chloride 105 mmol/L (98-107) D 06/06/17 06:10 Carbon Dioxide 25 mmol/L (21-32) 06/06/17 06:10 Anion Gap 10 (8-16) 06/06/17 06:10 BUN 11 mg/dL (7-18) 06/06/17 06:10 Creatinine 0.6 mg/dL (0.55-1.02) D 06/06/17 06:10 Creat Clearance w eGFR > 60 (>60) 06/06/17 06:10 Random Glucose 85 mg/dL (74-106) 06/06/17 06:10 Calcium 8.8 mg/dL (8.5-10.1) 06/06/17 06:10 Total Bilirubin 0.3 mg/dL (0.2-1.0) D 06/06/17 06:10 AST 72 U/L (15-37) H 06/06/17 06:10 ALT 46 U/L (12-78) 06/06/17 06:10 Alkaline Phosphatase 144 U/L (45-117) H D 06/06/17 06:10 Total Protein 9.2 g/dl (6.4-8.2) H 06/06/17 06:10 Albumin 4.1 g/dl (3.4-5.0) D 06/06/17 06:10 Urine Color Yellow 06/05/17 17:50 Urine Appearance Slcloudy 06/05/17 17:50 Urine pH 6.0 (5.0-8.0) 06/05/17 17:50 Ur Specific [place] 1.020 (1.005-1.025) 06/05/17 17:50 Urine Protein Negative (NEGATIVE) 06/05/17 17:50 Urine Glucose (UA) Negative (NEGATIVE) 06/05/17 17:50 Urine Ketones Negative (NEGATIVE) 06/05/17 17:50 Urine Blood Negative (NEGATIVE) 06/05/17 17:50 Urine Nitrite Negative (NEGATIVE) 06/05/17 17:50 Urine Bilirubin Negative (NEGATIVE) 06/05/17 17:50 Urine Urobilinogen Negative mg/dL (0.2-1.0) 06/05/17 17:50 Ur Leukocyte Esterase 3+ (NEGATIVE) H 06/05/17 17:50 Urine RBC 1 /hpf (0-3) 06/05/17 17:50 Urine WBC 67 /hpf (3-5) 06/05/17 17:50 Ur Epithelial Cells Many /hpf (FEW) 06/05/17 17:50 Urine Mucus Rare 06/05/17 17:50 RPR Titer Nonreactive (NONREACTIVE) 06/06/17 06:10 Assessment: 06/07/17 15:02 WITHDRAWAL SYMPTOM Plan: CONTINUE DETOX,REPEAT UA
[2017-06-07] MEDS: chlordiazePOXIDE 5 MG CAPSULE PO SCH ×2 (17:32→23:16)
[2017-06-07] MEDS: QUEtiapine FUMARATE 100 MG TABLET (FP) PO SCH (19:59)
[2017-06-07] MEDS: THIAMINE HCL 100 MG TABLET (FP) PO SCH (23:16)
[2017-06-08] MEDS: chlordiazePOXIDE 5 MG CAPSULE PO SCH ×2 (05:44→10:28)
--- NOTE | 2017-06-08 09:12 | PN ---
Psychiatric Progress Note Vital Signs: Vital Signs Period Temp Pulse Resp BP Sys/Baird Pulse Ox Last 24 Hr 97.2 F-98.6 F 91-100 18-20 108-122/66-92 Date of Session: 06/08/17 Chief Complaint:: Insomnia HPI: Patient reports taking prior to admission Seroquel 150mg po qhs, currently reports insomnia Current Medications: Active Medications Generic Name Dose Route Start Last Admin Trade Name Freq PRN Reason Stop Dose Admin Acetaminophen 650 mg 06/05/17 14:01 Tylenol - PO Q4H PRN FEVER OR PAIN Al Hydroxide/Mg Hydroxide 30 ml 06/05/17 14:01 Mylanta Oral Suspension - PO Q6H PRN DYSPEPSIA Albuterol Sulfate 2 puff 06/05/17 14:02 Ventolin Hfa Inhaler - IH Q4H PRN ASTHMA Amlodipine Besylate 10 mg 06/08/17 10:00 Norvasc - PO DAILY ARMANDO Aspirin 81 mg 06/08/17 10:00 Asa - PO DAILY ARMANDO Chlordiazepoxide HCl 10 mg 06/08/17 17:00 Librium - PO 06/09/17 11:01 [id number] ARMANDO Chlordiazepoxide HCl 25 mg 06/05/17 14:01 06/07/17 21:19 Librium - PO 06/08/17 14:00 25 mg Q4H PRN Administration WITHDRAWAL(CONT SUBST) Chlordiazepoxide HCl 15 mg 06/07/17 17:00 06/08/17 05:44 Librium - PO 06/08/17 11:01 15 mg [id number] ARMANDO Administration Diphenhydramine HCl 50 mg 06/05/17 14:01 06/06/17 22:20 Benadryl - PO 50 mg HSMR1 PRN Administration INSOMNIA Eucalyptus/Menthol/Phenol/Sorbitol 1 each 06/05/17 14:01 Cepastat Lozenge - MM Q4H PRN SORE THROAT Fluconazole 100 mg 06/06/17 10:00 06/07/17 10:16 Diflucan - PO 100 mg DAILY ARMANDO Administration Guaifenesin 10 ml 06/05/17 14:01 Robitussin Dm - PO Q6H PRN COUGH HCTZ/Losartan Potassium 1 tab 06/08/17 10:00 Hyzaar - PO DAILY ARMANDO Hydroxyzine Pamoate 50 mg 06/05/17 14:01 Vistaril - PO Q4H PRN AGITATION Ibuprofen 400 mg 06/05/17 14:01 Motrin - PO Q6H PRN SEVERE PAIN Loperamide HCl 4 mg 06/05/17 14:01 Imodium - PO Q6H PRN DIARRHEA Magnesium Citrate 300 ml 06/05/17 14:01 Citroma - PO Q48H PRN CONSTIPATION Magnesium Hydroxide 30 ml 06/05/17 14:01 Milk Of Magnesia - PO DAILY PRN CONSTIPATION Nicotine 21 mg 06/06/17 10:00 06/07/17 10:19 Nicoderm Patch - TD Not Given DAILY ARMANDO Nicotine Polacrilex 4 mg 06/05/17 14:01 06/07/17 17:35 Nicorette Gum - BC 4 mg Q2H PRN Administration NICOTINE REPLACEMENT RX Multivit/Folic Acid/Iron 1 tab 06/06/17 10:00 06/07/17 10:16 Vitamins (Sjr) - PO 1 tab DAILY [facility] Administration Pseudoephedrine/Triprolidine 1 combo 06/05/17 14:01 Actifed - PO TID PRN NASAL CONGESTION Quetiapine Fumarate 100 mg 06/06/17 20:00 06/07/17 19:59 Seroquel - PO 100 mg HS@2000 [facility] Administration Thiamine HCl 100 mg 06/05/17 22:00 06/07/17 23:16 Vitamin B1 - PO Not Given [facility] Trimethoprim/Sulfamethoxazole 1 each 06/06/17 10:00 06/07/17 10:16 Bactrim Ds - PO 1 each DAILY [facility] Administration Medication(s) Change(s): Seroquel 150mg po qhs Mental Status Exam - Mental Status Exam Alert and Oriented to: Place, Person Cognitive Function: Fair Patient Appearance: Unkempt Mood: Anxious, Irritable Affect: Mood Congruent Patient Behavior: Cooperative Speech Pattern: Appropriate Voice Loudness: Normal Thought Process: Goal Oriented Thought Disorder: Being Controlled Hallucinations: Denies Suicidal Ideation: Denies Homicidal Ideation: Denies Insight/Judgement: Fair Sleep: Difficulty falling asleep Appetite: Weight loss Muscle strength/Tone: Mild Hypotonicity Gait/Station: Normal Additional Comments: Seroquel 150mg po qhs Psychiatric Treatment Plan - Problem List (1) Alcohol dependence with uncomplicated withdrawal Current Visit: Yes (2) Nicotine dependence Current Visit: Yes Qualifiers: Nicotine product type: cigarettes Substance use status: uncomplicated Qualified Code(s): F17.210 - Nicotine dependence, cigarettes, uncomplicated (3) Substance induced mood disorder Current Visit: Yes (4) Depression Current Visit: No (5) Drug-induced mood disorder Current Visit: Yes Initial treatment plan: Seroquel 150mg po qhs
[2017-06-08] MEDS ORDERED: LOSARTAN 50MG/HCTZ 12.5MG 1 TAB (FP) PO SCH ×2 (10:00)
[2017-06-08] MEDS ORDERED: amLODIPine BESYLATE 10 MG TABLET (FP) PO SCH (10:00)
[2017-06-08] MEDS ORDERED: ASPIRIN 81 MG CHEWABLE TABLETS PO SCH (10:00)
[2017-06-08 10:09] LABS: URINE APPEARANCE CLEAR; URINE BILIRUBIN NEGATIVE (NEGATIVE); URINE BLOOD NEGATIVE (NEGATIVE); URINE COLOR LTYELLOW; URINE GLUCOSE (UA) NEGATIVE (NEGATIVE); URINE KETONE NEGATIVE (NEGATIVE); URINE NITRITE NEGATIVE (NEGATIVE); URINE PROTEIN NEGATIVE (NEGATIVE); URINE UROBILINOGEN NEGATIVE mg/dL (0.2-1.0)
[2017-06-08 10:12] LABS: URINE LEUK ESTERASE 2+ (NEGATIVE)
[2017-06-08 10:14] LABS: URINE HYALINE CAST 1 /lpf; URINE MUCUS RARE; URINE RBC 1 /hpf (0-3); URINE WBC 7 /hpf (3-5)
[2017-06-08] MEDS: FLUCONAZOLE 100 MG TABLET (UD) PO SCH (10:28)
[2017-06-08] MEDS: SULFAMETHOXAZOLE/TRIMETHOPRIM 800MG/160MG D.S. TABLET PO SCH (10:28)
[2017-06-08] MEDS: PRENATAL VITAMINS W/ FOLIC ACID TABLET (FP) PO SCH (10:28)
[2017-06-08] MEDS: NICOTINE 21 MG/24 HOURS TOPICAL PATCH TD SCH (10:30)
--- NOTE | 2017-06-08 11:11 | PN ---
BHS Progress Note (SOAP) Subjective: irritable I need my BP medication given to me at 8am Objective: 06/08/17 11:10 Vital Signs Temperature 98.2 F 06/08/17 10:00 Pulse Rate 102 H 06/08/17 10:00 Respiratory Rate 20 06/08/17 10:00 Blood Pressure 110/60 06/08/17 10:00 O2 Sat by Pulse Oximetry (%) awake/alert ambulating no acute distress Assessment: 06/08/17 11:11 mild withdrawal sx Plan: continue detox increase fluids BP ordered for 8am as per pt request d/c in am
[2017-06-08] MEDS ORDERED: HALOPERIDOL 1 MG TABLET (FP) PO PRN (11:21)
[2017-06-08] MEDS ORDERED: diphenhydrAMINE HCL 50 MG CAPSULE PO ONE (12:45)
[2017-06-08] MEDS ORDERED: HALOPERIDOL 2 MG TABLET PO ONE (12:45)
[2017-06-08] MEDS: NICOTINE POLACRILEX 4 MG GUM BC PRN ×2 (12:52→15:35)
[2017-06-08] MEDS: chlordiazePOXIDE HCL 10 MG CAPSULE PO SCH ×2 (17:22→22:26)
[2017-06-08] MEDS ORDERED: QUEtiapine FUMARATE 50 MG TABLET PO SCH (20:00)
[2017-06-08] MEDS: THIAMINE HCL 100 MG TABLET (FP) PO SCH (22:26)
[2017-06-09] MEDS: chlordiazePOXIDE HCL 10 MG CAPSULE PO SCH ×2 (05:48→11:10)
[2017-06-09] MEDS ORDERED: LOSARTAN 50MG/HCTZ 12.5MG 1 TAB (FP) PO SCH (08:00)
[2017-06-09] MEDS ORDERED: amLODIPine BESYLATE 10 MG TABLET (FP) PO SCH (08:00)
[2017-06-09] MEDS ORDERED: ASPIRIN 81 MG CHEWABLE TABLETS PO SCH (08:00)
--- NOTE | 2017-06-09 09:04 | DS ---
[facility] Detox Discharge Summary Admission Date: 06/05/17 Discharge Date: 06/09/17 - History Present History: Alcohol Dependence - Physical Exam Results Vital Signs: Vital Signs Temperature 97.3 F L 06/09/17 06:00 Pulse Rate 105 H 06/09/17 06:00 Respiratory Rate 16 06/09/17 06:00 Blood Pressure 100/73 06/09/17 06:00 O2 Sat by Pulse Oximetry (%) - Treatment Hospital Course: Detox Protocol Followed, Detoxed Safely, Responded well, Discharged Condition Good, Rehab Referral Accepted - Medication Discharge Medications: Ambulatory Orders Albuterol Sulfate Inhaler - [Ventolin HFA Inhaler -] 2 inh IH Q4H PRN #1 inh 11/28 Quetiapine Fumarate [Seroquel] 100 mg PO HS #30 tablet 05/21/17 Amlodipine Besylate [Norvasc -] 10 mg PO DAILY 06/05/17 Aspirin [ASA -] 81 mg PO DAILY 06/05/17 Fluconazole [Diflucan -] 100 mg PO DAILY 06/05/17 Losartan/Hydrochlorothiazide [Losartan-Hctz 50-12.5 mg Tab] 1 each PO DAILY Sulfamethoxazole/Trimethoprim [Bactrim Ds -] 1 tab PO DAILY 06/05/17 Quetiapine Fumarate [Seroquel] 100 mg PO HS #30 tablet 06/06/17 Quetiapine Fumarate [Seroquel] 150 mg PO HS #30 tablet 06/08/17 - Diagnosis (1) Hypertension Current Visit: Yes Status: Chronic Qualifiers: Hypertension type: essential hypertension Qualified Code(s): I10 - Essential (primary) hypertension (2) Alcohol dependence with uncomplicated withdrawal Current Visit: Yes Status: Chronic (3) Asthma Current Visit: Yes Status: Chronic Qualifiers: Asthma severity: mild intermittent Asthma complication type: uncomplicated Qualified Code(s): J45.20 - Mild intermittent asthma, uncomplicated (4) Depression Current Visit: No Status: Chronic (5) HIV (human immunodeficiency virus infection) Current Visit: Yes Status: Chronic (6) Nicotine dependence Current Visit: Yes Status: Chronic Qualifiers: Nicotine product type: cigarettes Substance use status: uncomplicated Qualified Code(s): F17.210 - Nicotine dependence, cigarettes, uncomplicated - AMA Did Patient Leave Against Medical Advice: No (yony ATS)
[2017-06-09 10:33] VITALS: BP 101/68; PULSE 93; TEMP 97.7
[2017-06-09] MEDS: SULFAMETHOXAZOLE/TRIMETHOPRIM 800MG/160MG D.S. TABLET PO SCH (11:06)
[2017-06-09] MEDS: FLUCONAZOLE 100 MG TABLET (UD) PO SCH (11:07)
[2017-06-09] MEDS: NICOTINE 21 MG/24 HOURS TOPICAL PATCH TD SCH (11:07)
[2017-06-09] MEDS: PRENATAL VITAMINS W/ FOLIC ACID TABLET (FP) PO SCH (11:08)
== END 2017-06-09 09:38 | disposition home or self-care (01) | DRG 775 ==
LOC: YASAS 10:12 → Y6N 12:56
PROVIDERS: ADMIT Internal Medicine Addiction Medicine; ATTEND Internal Medicine Addiction Medicine
PROC: HZ2ZZZZ Detoxification Services for Substance Abuse Treatment (ICD-10-PCS; principal; 2017-06-09)
DX: F10.230 Alcohol dependence with withdrawal, uncomplicated (principal); F17.210 Nicotine dependence, cigarettes, uncomplicated; F32.9 Major depressive disorder, single episode, unspecified; F19.24 Other psychoactive substance dependence with psychoactive substance-induced mood disorder; G47.00 Insomnia, unspecified; I10 Essential (primary) hypertension; Z21 Asymptomatic human immunodeficiency virus [HIV] infection status
CPT/HCPCS: 36415; 80053; 81003; 81015; 85027; 86593; 93005; 93010

== ENCOUNTER 2018-09-20 10:26 | Inpatient (IN) | payer OTHER ==
[2018-09-20 10:43] VITALS: BMI 16.1
--- NOTE | 2018-09-20 11:52 | HP ---
CIWA Score Nausea/Vomitin Muscle Tremors: 2 Anxiety: 2 Agitation: 2 Paroxysmal Sweats: 1-Minimal Palms Moist Orientation: 0-Oriented Tacttile Disturbances: 1-Very Mild Itch/Numbness Auditory Disturbances: 1-Very Mild Visual Disturbances: 0-None Headache: 2-Mild CIWA-Ar Total Score: 13 - Admission Criteria [facility]ASAS Guidelines: Admission for Medically Managed Detox: Requires at least one of the followin. CIWA greater than 12 2. Seizures within the past 24 hours 3. Delirium tremens within the past 24 hours 4. Hallucinations within the past 24 hours 5. Acute intervention needed for co occurring medical disorder 6. Acute intervention needed for co occurring psychiatric disorder 7. Severe withdrawal that cannot be handled at a lower level of care (continued vomiting, continued diarrhea, abnormal vital signs) requiring intravenous medication and/or fluids 8. Admission ROS S - HPI Chief Complaint: i need help to stop drinking alcohol and marijuana Allergies/Adverse Reactions: Allergies Allergy/AdvReac Type Severity Reaction Status Date / Time apple Allergy Severe Difficulty Verified 09/20/18 10:56 Breathing peanut Allergy Severe Difficulty Verified 09/20/18 10:56 Breathing No Known Drug Allergies Allergy Verified 09/20/18 10:56 History of Present Illness: this 43 years old female with alcohol and marijuana,seeking detox,withdrawal symptom,last detox [facility]06/05/17 to 06/09/17 completed hypertension non compliance syncope alcohol related nicotine dependence weight loss bipolar disoder no med for 4 months longest period of sobriety 11 months Exam Limitations: No Limitations - Ebola screening Have you traveled outside of the country in the last 21 days: No Have you had contact with anyone from an Ebola affected area: No Have you been sick,other than usual withdrawal symptoms: No Do you have a fever: No - Review of Systems Constitutional: Loss of Appetite, Malaise, Night Sweats, Changes in sleep, Weakness EENT: reports: Tearing, Nose Congestion Respiratory: reports: No Symptoms reported Cardiac: reports: No Symptoms Reported GI: reports: Nausea, Vomiting, Abdominal cramping : reports: No Symptoms Reported Musculoskeletal: reports: Back Pain, Muscle Pain Integumentary: reports: Dryness Neuro: reports: Headache, Tremors Endocrine: reports: No Symptoms Reported Hematology: reports: No Symptoms Reported Psychiatric: reports: No Sypmtoms Reported, Judgement Intact, Mood/Affect Appropiate, Orientated x3, other (bipolar disorder no med for 4 months) Patient History - Patient Medical History Hx Anemia: No Hx Asthma: Yes (on albuterol inhaler) Hx Chronic Obstructive Pulmonary Disease (COPD): No Hx Cancer: No Hx Cardiac Disorders: No Hx Congestive Heart Failure: No Hx Hypertension: Yes (non compliance) Hx Hypercholesterolemia: No Hx Pacemaker: No HX Cerebrovascular Accident: No Hx Seizures: No Hx Dementia: No Hx Diabetes: No Hx Gastrointestinal Disorders: No Hx Liver Disease: No Hx Genitourinary Disorders: No Hx Sexually Transmitted Disorders: No Hx Renal Disease (ESRD): No Hx Thyroid Disease: No Hx Human Immunodeficiency Virus (HIV): Yes (SINCE 2005, NO FIGUEROA MEDS,CD4+ less than 200 = AIDS,thrush.) Hx Hepatitis C: No Hx Depression: Yes Hx Suicide Attempt: No Hx Bipolar Disorder: Yes (no med for 4 months) Hx Schizophrenia: No Other Medical History: no suicidal,no homicidal - Patient Surgical History Past Surgical History: No Hx Neurologic Surgery: No Hx Cataract Extraction: No Hx Cardiac Surgery: No Hx Lung Surgery: No Hx Breast Surgery: No Hx Breast Biopsy: No Hx Abdominal Surgery: No Hx Appendectomy: No Hx Cholecystectomy: No Hx Genitourinary Surgery: No Hx Section: No Hx Orthopedic Surgery: No Anesthesia Reaction: No - PPD History Previous Implant?: Yes Documented Results: Negative w/proof Implanted On Prior [facility] Admission?: Yes Date: 03/11/17 Results: 0 mm PPD to be Administered?: Yes - Reproductive History Patient is a Female of Child Bearing Age (11 -55 yrs old): Yes Last Menstrual Period: 01/24/18 Patient : No - Smoking Cessation Smoking history: Current every day smoker Have you smoked in the past 12 months: Yes Aproximately how many cigarettes per day: 10 Cigars Per Day: 0 Hx Chewing Tobacco Use: No Initiated information on smoking cessation: Yes 'Breaking Loose' booklet given: 09/20/18 - Substance & Tx. History Hx Alcohol Use: Yes Hx Substance Use: Yes Substance Use Type: Alcohol, Marijuana Hx Substance Use Treatment: Yes ([facility] 06/05/17 to 06/09/17) - Substances Abused Alcohol-beer/vodka Route: Oral Frequency: Daily Amount used: 4 (24 oz.)/1/2 pt. Age of first use: 21 Date of Last Use: 09/20/18 Marijuana Route: Smoking Frequency: Daily Amount used: $10 Age of first use: 15 Date of Last Use: 09/20/18 Family Disease History - Family Disease History Family Disease History: Other: Father (asthma,Alcoholic), Mother (Alcoholic) Admission Physical Exam S - Vital Signs Vital Signs: Vital Signs - 24 hr 09/20/18 10:40 Temperature 97.9 F Pulse Rate 76 Respiratory 20 Rate Blood Pressure 102/72 - Physical General Appearance: Yes: Moderate Distress, Tremorous, Irritable, Sweating, Anxious HEENTM: Yes: Normal ENT Inspection, IKE, Pharynx Normal Respiratory: Yes: Lungs Clear, Normal Breath Sounds, No Respiratory Distress Neck: Yes: Within Normal Limits, Supple, Trachea in good position Breast: Yes: Breast Exam Deferred Cardiology: Yes: Within Normal Limits, Regular Rhythm, Regular Rate, S1, S2 Abdominal: Yes: Within Normal Limits, Normal Bowel Sounds, Non Tender, Flat, Soft Genitourinary: Yes: Within Normal Limits Back: Yes: Muscle Spasm Musculoskeletal: Yes: full range of Motion, Back pain, Muscle Pain Extremities: Yes: Within Normal Limits, Normal Range of Motion, Tremors Neurological: Yes: Within Normal Limits, ice handler II-XII NML intact, Alert, Motor Strength 5/5 Integumentary: Yes: Dry Lymphatic: Yes: Within Normal Limits - Diagnostic (1) Alcohol dependence with uncomplicated withdrawal Current Visit: No Status: Chronic (2) Cannabis dependence Current Visit: No Status: Acute (3) HIV (human immunodeficiency virus infection) Current Visit: No Status: Chronic Comment: has not been taking any antivirals within the past year. pt met with her PMD, blood was drawn to check viral load and CD4 count. results pending. (4) Hypertension Current Visit: No Status: Chronic Qualifiers: Hypertension type: essential hypertension Qualified Code(s): I10 - Essential (primary) hypertension (5) Nicotine dependence Current Visit: No Status: Chronic Qualifiers: Nicotine product type: cigarettes Substance use status: uncomplicated Qualified Code(s): F17.210 - Nicotine dependence, cigarettes, uncomplicated (6) Bipolar disorder Current Visit: No Status: Acute (7) Weight loss Current Visit: No Status: Acute (8) Alcohol dependence with uncomplicated intoxication Current Visit: No Status: Acute Cleared for Admission BHS - Detox or Rehab B[facility] Level of Care: Medically Managed Detox Regimen/Protocol: Librium [facility] Breath Alcohol Content Breath Alcohol Content: 0.165 Urine Pregancy Test - Result Urine Test Results: Negative- NO Line Present Urine Drug Screen - Results Drug Screen Negative: No Urine Drug Screen Results: THC-Marijuana
[2018-09-20] MEDS ORDERED: ACETAMINOPHEN 325 MG TABLET (FP) PO PRN (12:00)
[2018-09-20] MEDS ORDERED: guaiFENesin/D-METHORPHAN HB 10 ML UNIT-DOSE CUPS PO PRN (12:00)
[2018-09-20] MEDS ORDERED: IBUPROFEN 400 MG TABLET (FP) PO PRN (12:00)
[2018-09-20] MEDS ORDERED: hydrOXYzine PAMOATE 25 MG CAPSULE (FP) PO PRN (12:00)
[2018-09-20] MEDS ORDERED: LOPERAMIDE HCL 2 MG CAPSULE PO PRN (12:00)
[2018-09-20] MEDS ORDERED: MAG HYDROX/AL HYDROX/SIMETH 30 ML UNIT-DOSE CUP PO PRN (12:00)
[2018-09-20] MEDS ORDERED: MAGNESIUM CITRATE 300 ML BOTTLE PO PRN (12:00)
[2018-09-20] MEDS ORDERED: P-EPHED 60MG/TRIPROLIDI 2.5MG TABLET PO PRN (12:00)
[2018-09-20] MEDS ORDERED: MENTHOL/PHENOL 1 EACH UD MM PRN (12:00)
[2018-09-20] MEDS ORDERED: MAGNESIUM HYDROX 2400MG/30ML ORAL SUSPENSION 30 ML CUP PO PRN (12:00)
[2018-09-20] MEDS ORDERED: NICOTINE POLACRILEX 2 MG GUM BUC PRN (12:00)
[2018-09-20] MEDS ORDERED: chlordiazePOXIDE HCL 25 MG CAPSULE PO PRN (12:00)
--- NOTE | 2018-09-20 14:09 | CONSULT ---
[facility] Psychiatric Consult - Data Date of interview: 09/20/18 Admission source: [facility] Identifying data: This is A 43 years old female, single mother of two, living with family, unemployed, on PA support, with Bipolar nDisorder history, history of psychiatric hospitalizations, with alcohol, nicotine and marijuana dependence, reporting withdrawal symptoms and seeking for detox., Substance Abuse History: - Smoking Cessation. Smoking history: Current every day smoker. Have you smoked in the past 12 months: Yes. Aproximately how many cigarettes per day: 10. Cigars Per Day: 0. Hx Chewing Tobacco Use: No. Initiated information on smoking cessation: Yes. 'Breaking Loose' booklet given : 09/20/18. - Substance & Tx. History. Hx Alcohol Use: Yes. Hx Substance Use : Yes. Substance Use Type: Alcohol, Marijuana. Hx Substance Use Treatment: Yes ([facility] 06/05/17 to 06/09/17). - Substances Abused. Alcohol-beer/vodka. Route: Oral. Frequency: Daily. Amount used: 4 (24 oz.)/1/2 pt. Age of first use: 21. Date of Last Use: 09/20/18. Marijuana. Route: Smoking. Frequency : Daily. Amount used: $10. Age of first use: 15. Date of Last Use: 09/20/18 Medical History: Weight loss history, Asthma, HIV, HTN. Psychiatric History: Patient reports history of Bipolar Disorder, reportas most recent psychiatric hospitalization for safety on about 5 years ago at [facility]. Patient reports taking prior to admission: Seroquel 150mg po qhs. Remeron 15mg po qhs Physical/Sexual Abuse/Trauma History: Denies Additional Comment: Seroquel 150mg po qhs. Remeron 15mg po qhs Mental Status Exam - Mental Status Exam Alert and Oriented to: Person Cognitive Function: Fair Patient Appearance: Unkempt Mood: Anxious Affect: Mood Congruent Patient Behavior: Cooperative Voice Loudness: Normal Thought Process: Goal Oriented Thought Disorder: Being Controlled Hallucinations: Denies Suicidal Ideation: Denies Homicidal Ideation: Denies Insight/Judgement: Fair Sleep: Difficulty falling asleep Appetite: Weight loss Muscle strength/Tone: Normal Gait/Station: Normal Additional Comments: Seroquel 150mg po qhs. Remeron 15mg po qhs Psychiatric Findings - Problem List ([place] 1, 2,3) (1) Alcohol dependence with uncomplicated intoxication Current Visit: No Status: Acute (2) Bipolar disorder Current Visit: No Status: Acute (3) Cannabis dependence Current Visit: No Status: Acute (4) Drug-induced mood disorder Current Visit: No Status: Acute (5) Substance induced mood disorder Current Visit: No Status: Acute (6) Weight loss Current Visit: No Status: Acute (7) Alcohol dependence with uncomplicated withdrawal Current Visit: No Status: Chronic (8) Asthma Current Visit: No Status: Chronic Qualifiers: Asthma severity: mild intermittent Asthma complication type: uncomplicated Qualified Code(s): J45.20 - Mild intermittent asthma, uncomplicated (9) HIV (human immunodeficiency virus infection) Current Visit: No Status: Chronic Comment: has not been taking any antivirals within the past year. pt met with her PMD, blood was drawn to check viral load and CD4 count. results pending. (10) Hypertension Current Visit: No Status: Chronic Qualifiers: Hypertension type: essential hypertension Qualified Code(s): I10 - Essential (primary) hypertension (11) Nicotine dependence Current Visit: No Status: Chronic Qualifiers: Nicotine product type: cigarettes Substance use status: uncomplicated Qualified Code(s): F17.210 - Nicotine dependence, cigarettes, uncomplicated - Initial Treatment Plan Initial Treatment Plan: Seroquel 150mg po qhs. Remeron 15mg po qhs
[2018-09-20] MEDS: amLODIPine BESYLATE 10 MG TABLET (FP) PO SCH (14:13)
[2018-09-20] MEDS: NICOTINE 21 MG/24 HOURS TOPICAL PATCH TD SCH (14:14)
[2018-09-20 17:18] LABS: URINE APPEARANCE SLCLOUDY; URINE BILIRUBIN NEGATIVE (<2.0 mg/dL); URINE COLOR DKYELLOW; URINE GLUCOSE (UA) NEGATIVE (NEGATIVE); URINE KETONE NEGATIVE (NEGATIVE); URINE LEUK ESTERASE 2+ (NEGATIVE); URINE NITRITE NEGATIVE (NEGATIVE); URINE PROTEIN NEGATIVE (NEGATIVE); URINE UROBILINOGEN 4.0 E.U/dl mg/dL (0.2-1.0)
[2018-09-20] MEDS: chlordiazePOXIDE HCL 25 MG CAPSULE PO SCH ×2 (17:38→22:28)
[2018-09-20 17:40] LABS: EPI CELLS RARE /HPF (FEW); URINE BACTERIA RARE /hpf (NONE SEEN); URINE MUCUS FEW
[2018-09-20] MEDS: ALBUTEROL SO4 8 GM HFA INHALER IH PRN (17:48)
[2018-09-20] MEDS ORDERED: MELATONIN 5 MG TABLETS PO PRN (22:00)
[2018-09-20] MEDS ORDERED: THIAMINE HCL 100 MG TABLET (FP) PO SCH (22:00)
[2018-09-20] MEDS: QUEtiapine FUMARATE 50 MG TABLET PO SCH (22:27)
[2018-09-20] MEDS: MIRTAZAPINE 15 MG TABLET (FP) PO SCH (22:28)
[2018-09-21] MEDS: chlordiazePOXIDE HCL 25 MG CAPSULE PO SCH ×4 (06:44→22:07)
[2018-09-21] MEDS: ALBUTEROL SO4 8 GM HFA INHALER IH PRN ×2 (06:45→17:53)
[2018-09-21] MEDS ORDERED: SULFAMETHOXAZOLE/TRIMETHOPRIM 800MG/160MG D.S. TABLET PO SCH (10:00)
[2018-09-21] MEDS: PRENATAL VITAMINS W/ FOLIC ACID TABLET (FP) PO SCH (10:33)
[2018-09-21] MEDS: LOSARTAN 50MG/HCTZ 12.5MG 1 TAB (FP) PO SCH (10:33)
[2018-09-21] MEDS: amLODIPine BESYLATE 10 MG TABLET (FP) PO SCH (10:33)
[2018-09-21] MEDS: ASPIRIN 81 MG CHEWABLE TABLETS PO SCH (10:33)
[2018-09-21] MEDS: NICOTINE 21 MG/24 HOURS TOPICAL PATCH TD SCH (10:34)
[2018-09-21 10:53] LABS: HEMATOCRIT 35.6 % (32.4-45.2); HEMOGLOBIN 11.7 GM/dL (10.7-15.3); MCH 35.3 pg (25.7-33.7); MEAN CELL VOLUME 106.7 fl (80-96); MEAN PLT VOLUME 8.8 fl (7.5-11.1); PLATELET COUNT 224 K/MM3 (134-434); RBC 3.33 M/mm3 (3.60-5.2); RDW 13.1 % (11.6-15.6); WHITE BLOOD COUNT 4.2 K/mm3 (4.0-10.0)
[2018-09-21 11:42] LABS: ALK PHOS 261 U/L (45-117); ANION GAP 32 MMOL/L (8-16); BILIRUBIN,TOTAL 2.9 mg/dL (0.2-1); BLOOD UREA NITROGEN 5 mg/dL (7-18); CHLORIDE 100 mmol/L (98-107); CO2 1 mmol/L (21-32); CREATININE 0.5 mg/dL (0.55-1.3); GLUCOSE,RANDOM 79 mg/dL (74-106); POTASSIUM 4.2 mmol/L (3.5-5.1); SGOT/AST 103 U/L (15-37); SGPT/ALT 61 U/L (13-61); SODIUM 133 mmol/L (136-145); TOT PROT 0.1 g/dl (6.4-8.2)
--- NOTE | 2018-09-21 13:56 | PN ---
[facility] CIWA - CIWA Score Nausea/Vomitin-No Nausea/No Vomiting Muscle Tremors: 3 Anxiety: 3 Agitation: 3 Paroxysmal Sweats: 3 Orientation: 0-Oriented Tacttile Disturbances: 0-None Auditory Disturbances: 0-None Visual Disturbances: 0-None Headache: 0-None Present CIWA-Ar Total Score: 12 S Progress Note (SOAP) Subjective: sweats agitation body aches tired interrupted sleep i need the large pills crushed because it can get stuck when i swallow. Objective: 09/21/18 13:54 Vital Signs Temperature 97.9 F 09/21/18 10:02 Pulse Rate 118 H 09/21/18 10:02 Respiratory Rate 18 09/21/18 10:02 Blood Pressure 137/99 09/21/18 10:02 O2 Sat by Pulse Oximetry (%) Laboratory Tests 09/20/18 09/21/18 09/21/18 15:30 05:45 05:45 WBC 4.2 RBC 3.33 L Hgb 11.7 Hct 35.6 MCV 106.7 H MCH 35.3 H MCHC 33.0 RDW 13.1 Plt Count 224 MPV 8.8 Sodium 133 L Potassium 4.2 Chloride 100 Carbon Dioxide 1 L Anion Gap 32 H BUN 5 L Creatinine 0.5 L Creat Clearance w eGFR > 60 Random Glucose 79 Calcium 8.0 L Total Bilirubin 2.9 H AST 103 H ALT 61 Alkaline Phosphatase 261 H Total Protein 0.1 L Albumin 3.0 L Urine Color Dkyellow Urine Appearance Slcloudy Urine pH 6.0 Ur Specific [place] 1.013 Urine Protein Negative Urine Glucose (UA) Negative Urine Ketones Negative Urine Blood Negative Urine Nitrite Negative Urine Bilirubin Negative Urine Urobilinogen 4.0 e.u/dl H Ur Leukocyte Esterase 2+ H Urine WBC (Auto) 11 Urine RBC (Auto) 1 Ur Epithelial Cells Rare Urine Bacteria Rare Urine Mucus Few RPR Titer 09/21/18 05:45 WBC RBC Hgb Hct MCV MCH MCHC RDW Plt Count MPV Sodium Potassium Chloride Carbon Dioxide Anion Gap BUN Creatinine Creat Clearance w eGFR Random Glucose Calcium Total Bilirubin AST ALT Alkaline Phosphatase Total Protein Albumin Urine Color Urine Appearance Urine pH Ur Specific [place] Urine Protein Urine Glucose (UA) Urine Ketones Urine Blood Urine Nitrite Urine Bilirubin Urine Urobilinogen Ur Leukocyte Esterase Urine WBC (Auto) Urine RBC (Auto) Ur Epithelial Cells Urine Bacteria Urine Mucus RPR Titer Nonreactive aaox3 ambulating no acute distress Assessment: 09/21/18 13:55 withdrawal sx Plan: continue detox increase fluids large pills to be crushed ordered as per pt request
--- NOTE | 2018-09-21 19:13 | PN ---
S Progress Note Note: Pt with HIV- states she does not know her CD4/VL. Pt states she has difficulty swallowing- food gets "stuck" in throat. Pt has h/o thrush. PE: chelitis, no white patches seen on tongue or cheeks a/p" presumed esophageal candidiasis as cause of dysphagia Rx- fluconazole 2 tabs-200mg for 14 days
[2018-09-21] MEDS ORDERED: hydrOXYzine PAMOATE 25 MG CAPSULE (FP) PO ONE (21:01)
[2018-09-21] MEDS ORDERED: MELATONIN 5 MG TABLETS PO PRN (21:01)
[2018-09-21] MEDS: MIRTAZAPINE 15 MG TABLET (FP) PO SCH (22:07)
[2018-09-21] MEDS: QUEtiapine FUMARATE 50 MG TABLET PO SCH (22:07)
[2018-09-21] MEDS: THIAMINE HCL 100 MG TABLET (FP) PO SCH (23:02)
[2018-09-22] MEDS: chlordiazePOXIDE HCL 25 MG CAPSULE PO SCH ×2 (05:32→11:13)
[2018-09-22] MEDS: ALBUTEROL SO4 8 GM HFA INHALER IH PRN ×2 (08:36→19:53)
[2018-09-22] MEDS: FOLIC ACID 1 MG TABLET (FP) PO SCH (10:19)
[2018-09-22] MEDS: LOSARTAN 50MG/HCTZ 12.5MG 1 TAB (FP) PO SCH (10:19)
[2018-09-22] MEDS: ASPIRIN 81 MG CHEWABLE TABLETS PO SCH (10:19)
[2018-09-22] MEDS: amLODIPine BESYLATE 10 MG TABLET (FP) PO SCH (10:19)
[2018-09-22] MEDS: SULFAMETHOXAZOLE/TRIMETHOPRIM 800MG/160MG D.S. TABLET PO SCH (10:19)
[2018-09-22] MEDS: CYANOCOBALAMIN 1,000 MCG TABLET (FP) PO SCH (10:19)
[2018-09-22] MEDS: PRENATAL VITAMINS W/ FOLIC ACID TABLET (FP) PO SCH (10:19)
[2018-09-22] MEDS: FLUCONAZOLE 100 MG TABLET (UD) PO SCH (10:20)
[2018-09-22] MEDS: NICOTINE 21 MG/24 HOURS TOPICAL PATCH TD SCH (10:21)
[2018-09-22] MEDS: ALBUTEROL SO4 2.5/IPRATROPIUM 0.5 INH SOL 3 ML VIAL.NEB. NEB PRN ×2 (11:12→21:15)
[2018-09-22 11:13] LABS: BASO % 1.1 % (0-2.0); EOS % 2.6 % (0-4.5); HEMATOCRIT 37.8 % (32.4-45.2); HEMOGLOBIN 12.5 GM/dL (10.7-15.3); LYMPH % 33.5 % (8-40); MCH 33.7 pg (25.7-33.7); MEAN PLT VOLUME 8.4 fl (7.5-11.1); MONO % 10.9 % (3.8-10.2); NEUT % 51.9 % (42.8-82.8); PLATELET COUNT 209 K/MM3 (134-434); RBC 3.71 M/mm3 (3.60-5.2); RDW 13.2 % (11.6-15.6); WHITE BLOOD COUNT 2.2 K/mm3 (4.0-10.0)
[2018-09-22 11:39] LABS: ALBUMIN 2.8 g/dl (3.4-5.0); ALK PHOS 252 U/L (45-117); ANION GAP 9 MMOL/L (8-16); BILIRUBIN,TOTAL 0.7 mg/dL (0.2-1); BLOOD UREA NITROGEN 7 mg/dL (7-18); CALCIUM 8.6 mg/dL (8.5-10.1); CHLORIDE 100 mmol/L (98-107); CO2 24 mmol/L (21-32); CREATININE 0.7 mg/dL (0.55-1.3); GLUCOSE,RANDOM 93 mg/dL (74-106); POTASSIUM 3.5 mmol/L (3.5-5.1); SGOT/AST 70 U/L (15-37); SGPT/ALT 51 U/L (13-61); SODIUM 133 mmol/L (136-145); TOT PROT 7.5 g/dl (6.4-8.2)
--- NOTE | 2018-09-22 14:10 | PN ---
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 controller tough time swallowing Objective: 09/22/18 14:09 Vital Signs Temperature 96.9 F L 09/22/18 13:29 Pulse Rate 111 H 09/22/18 13:29 Respiratory Rate 18 09/22/18 13:29 Blood Pressure 109/77 09/22/18 13:29 O2 Sat by Pulse Oximetry (%) Laboratory Tests 09/20/18 09/21/18 09/21/18 15:30 05:45 05:45 WBC 4.2 RBC 3.33 L Hgb 11.7 Hct 35.6 MCV 106.7 H MCH 35.3 H MCHC 33.0 RDW 13.1 Plt Count 224 MPV 8.8 Absolute Neuts (auto) Neutrophils % Lymphocytes % Monocytes % Eosinophils % Basophils % Nucleated RBC % Sodium 133 L Potassium 4.2 Chloride 100 Carbon Dioxide 1 L Anion Gap 32 H BUN 5 L Creatinine 0.5 L Creat Clearance w eGFR > 60 Random Glucose 79 Calcium 8.0 L Total Bilirubin 2.9 H AST 103 H ALT 61 Alkaline Phosphatase 261 H Total Protein 0.1 L Albumin 3.0 L Urine Color Dkyellow Urine Appearance Slcloudy Urine pH 6.0 Ur Specific [place] 1.013 Urine Protein Negative Urine Glucose (UA) Negative Urine Ketones Negative Urine Blood Negative Urine Nitrite Negative Urine Bilirubin Negative Urine Urobilinogen 4.0 e.u/dl H Ur Leukocyte Esterase 2+ H Urine WBC (Auto) 11 Urine RBC (Auto) 1 Ur Epithelial Cells Rare Urine Bacteria Rare Urine Mucus Few RPR Titer 09/21/18 09/22/18 09/22/18 05:45 07:30 07:30 WBC 2.2 L RBC 3.71 Hgb 12.5 Hct 37.8 MCV 102.0 H MCH 33.7 MCHC 33.0 RDW 13.2 Plt Count 209 MPV 8.4 Absolute Neuts (auto) 1.1 L Neutrophils % 51.9 Lymphocytes % 33.5 Monocytes % 10.9 H Eosinophils % 2.6 Basophils % 1.1 Nucleated RBC % 0 Sodium 133 L Potassium 3.5 Chloride 100 Carbon Dioxide 24 Anion Gap 9 BUN 7 Creatinine 0.7 Creat Clearance w eGFR > 60 Random Glucose 93 Calcium 8.6 Total Bilirubin 0.7 AST 70 H ALT 51 Alkaline Phosphatase 252 H Total Protein 7.5 Albumin 2.8 L Urine Color Urine Appearance Urine pH Ur Specific [place] Urine Protein Urine Glucose (UA) Urine Ketones Urine Blood Urine Nitrite Urine Bilirubin Urine Urobilinogen Ur Leukocyte Esterase Urine WBC (Auto) Urine RBC (Auto) Ur Epithelial Cells Urine Bacteria Urine Mucus RPR Titer Nonreactive aaox3 ambulating no acute distress labs noted Assessment: 09/22/18 14:09 withdrawal sx Plan: continue detox increase fluids mycelex troches ordered dietary consultation ordered
[2018-09-22] MEDS: CLOTRIMAZOLE 10 MG TROCHE (FP) PO SCH ×2 (17:26→22:01)
[2018-09-22] MEDS: chlordiazePOXIDE 5 MG CAPSULE PO SCH ×2 (17:27→22:00)
[2018-09-22] MEDS: MIRTAZAPINE 15 MG TABLET (FP) PO SCH (22:01)
[2018-09-22] MEDS: QUEtiapine FUMARATE 50 MG TABLET PO SCH (22:01)
[2018-09-22] MEDS: THIAMINE HCL 100 MG TABLET (FP) PO SCH (22:01)
[2018-09-23] MEDS: chlordiazePOXIDE 5 MG CAPSULE PO SCH ×2 (05:44→10:36)
[2018-09-23] MEDS: CLOTRIMAZOLE 10 MG TROCHE (FP) PO SCH ×5 (05:44→22:08)
[2018-09-23] MEDS: CYANOCOBALAMIN 1,000 MCG TABLET (FP) PO SCH (10:36)
[2018-09-23] MEDS: FOLIC ACID 1 MG TABLET (FP) PO SCH (10:36)
[2018-09-23] MEDS: ASPIRIN 81 MG CHEWABLE TABLETS PO SCH (10:36)
[2018-09-23] MEDS: FLUCONAZOLE 100 MG TABLET (UD) PO SCH (10:36)
[2018-09-23] MEDS: LOSARTAN 50MG/HCTZ 12.5MG 1 TAB (FP) PO SCH (10:37)
[2018-09-23] MEDS: amLODIPine BESYLATE 10 MG TABLET (FP) PO SCH (10:37)
[2018-09-23] MEDS: NICOTINE 21 MG/24 HOURS TOPICAL PATCH TD SCH (10:44)
[2018-09-23] MEDS: PRENATAL VITAMINS W/ FOLIC ACID TABLET (FP) PO SCH (10:44)
[2018-09-23] MEDS: SULFAMETHOXAZOLE/TRIMETHOPRIM 800MG/160MG D.S. TABLET PO SCH (10:44)
--- NOTE | 2018-09-23 14:03 | PN ---
[facility] Progress Note (SOAP) Subjective: agitation sweats Objective: 09/23/18 14:02 Vital Signs Temperature 98.3 F 09/23/18 09:22 Pulse Rate 132 H 09/23/18 09:22 Respiratory Rate 18 09/23/18 09:22 Blood Pressure 123/53 L 09/23/18 09:22 O2 Sat by Pulse Oximetry (%) aaox3 ambulating no acute distress Assessment: 09/23/18 14:02 mild withdrawal sx Plan: continue detox increase fluids d/c in am at 7am. pt has a ride scheduled for p/u
[2018-09-23] MEDS: chlordiazePOXIDE HCL 10 MG CAPSULE PO SCH ×2 (16:43→22:08)
[2018-09-23] MEDS: ALBUTEROL SO4 2.5/IPRATROPIUM 0.5 INH SOL 3 ML VIAL.NEB. NEB PRN (17:51)
[2018-09-23] MEDS: MIRTAZAPINE 15 MG TABLET (FP) PO SCH (22:08)
[2018-09-23] MEDS: QUEtiapine FUMARATE 50 MG TABLET PO SCH (22:08)
[2018-09-23] MEDS: THIAMINE HCL 100 MG TABLET (FP) PO SCH (22:09)
[2018-09-24] MEDS: CLOTRIMAZOLE 10 MG TROCHE (FP) PO SCH (05:35)
[2018-09-24] MEDS: chlordiazePOXIDE HCL 10 MG CAPSULE PO SCH (06:34)
[2018-09-24 06:45] VITALS: BP 100/57; PULSE 106; TEMP 97.5
== END 2018-09-24 07:21 | disposition home or self-care (01) | DRG 775 ==
LOC: YASAS 10:26 → Y6N 12:00
PROC: HZ2ZZZZ Detoxification Services for Substance Abuse Treatment (ICD-10-PCS; principal; 2018-09-20)
DX: F10.230 Alcohol dependence with withdrawal, uncomplicated (principal); F12.20 Cannabis dependence, uncomplicated; F17.210 Nicotine dependence, cigarettes, uncomplicated; F31.9 Bipolar disorder, unspecified; F19.24 Other psychoactive substance dependence with psychoactive substance-induced mood disorder; F32.9 Major depressive disorder, single episode, unspecified; Z21 Asymptomatic human immunodeficiency virus [HIV] infection status; I10 Essential (primary) hypertension; J45.909 Unspecified asthma, uncomplicated; R63.4 Abnormal weight loss; Z68.1 Body mass index [BMI] 19.9 or less, adult; G47.00 Insomnia, unspecified
CPT/HCPCS: 36415; 80053; 81003; 81015; 85025; 85027; 86593; 94640

== ENCOUNTER 2019-03-04 09:25 | Inpatient (IN) | payer OTHER ==
[2019-03-04 13:08] VITALS: BMI 16.5
--- NOTE | 2019-03-04 15:04 | HP ---
CIWA Score Nausea/Vomitin-No Nausea/No Vomiting Muscle Tremors: 4-Moderate,w/Arms Extend Anxiety: 4-Mod. Anxious/Guarded Agitation: 4-Moderately Restless Paroxysmal Sweats: 3 Orientation: 0-Oriented Tacttile Disturbances: 0-None Auditory Disturbances: 0-None Visual Disturbances: 0-None Headache: 1-Very Mild CIWA-Ar Total Score: 16 - Admission Criteria [facility] Guidelines: Admission for Medically Managed Detox: Requires at least one of the followin. CIWA greater than 12 2. Seizures within the past 24 hours 3. Delirium tremens within the past 24 hours 4. Hallucinations within the past 24 hours 5. Acute intervention needed for co occurring medical disorder 6. Acute intervention needed for co occurring psychiatric disorder 7. Severe withdrawal that cannot be handled at a lower level of care (continued vomiting, continued diarrhea, abnormal vital signs) requiring intravenous medication and/or fluids 8. Admission ROS S - HPI Chief Complaint: i need help and get sober again Allergies/Adverse Reactions: Allergies Allergy/AdvReac Type Severity Reaction Status Date / Time apple Allergy Severe Difficulty Verified 03/04/19 12:55 Breathing peanut Allergy Severe Difficulty Verified 03/04/19 12:55 Breathing No Known Drug Allergies Allergy Verified 03/04/19 12:55 History of Present Illness: pt is a 43yr old female with a history of alcohol dependence seeking detox for treatment. Exam Limitations: No Limitations - Ebola screening Have you traveled outside of the country in the last 21 days: No Have you had contact with anyone from an Ebola affected area: No Have you been sick,other than usual withdrawal symptoms: No Do you have a fever: No - Review of Systems Constitutional: Diaphoresis, Changes in sleep EENT: reports: Tearing, Nose Congestion, Dental Problems Respiratory: reports: No Symptoms reported Cardiac: reports: No Symptoms Reported GI: reports: Poor Appetite, Poor Fluid Intake, Indigestion : reports: No Symptoms Reported Musculoskeletal: reports: No Symptoms Reported Integumentary: reports: Flushing, Sweating Neuro: reports: Headache, Tremors Endocrine: reports: Excessive Sweating, Flushing, Intolerance to Cold, Intolerance to Heat Hematology: reports: No Symptoms Reported Psychiatric: reports: Judgement Intact, Mood/Affect Appropiate, Orientated x3, Agitated, Anxious Other Systems: Reviewed and Negative Patient History - Patient Medical History Hx Anemia: No Hx Asthma: Yes (on albuterol inhaler) Hx Chronic Obstructive Pulmonary Disease (COPD): No Hx Cancer: No Hx Cardiac Disorders: No Hx Congestive Heart Failure: No Hx Hypertension: Yes (losartan and asprin) Hx Hypercholesterolemia: No Hx Pacemaker: No HX Cerebrovascular Accident: No Hx Seizures: No Hx Dementia: No Hx Diabetes: No Hx Gastrointestinal Disorders: No Hx Liver Disease: No Hx Genitourinary Disorders: No Hx Sexually Transmitted Disorders: No Hx Renal Disease (ESRD): No Hx Thyroid Disease: No Hx Human Immunodeficiency Virus (HIV): Yes (SINCE 2005, NO FIGUEROA MEDS,CD4+ less than 200 = AIDS,thrush.) Hx Hepatitis C: No Hx Depression: Yes Hx Suicide Attempt: No Hx Bipolar Disorder: Yes Hx Schizophrenia: No - Patient Surgical History Past Surgical History: No Hx Neurologic Surgery: No Hx Cataract Extraction: No Hx Cardiac Surgery: No Hx Lung Surgery: No Hx Breast Surgery: No Hx Breast Biopsy: No Hx Abdominal Surgery: No Hx Appendectomy: No Hx Cholecystectomy: No Hx Genitourinary Surgery: No Hx Section: No Hx Orthopedic Surgery: No Anesthesia Reaction: No - PPD History Previous Implant?: Yes Date: 09/22/18 Results: 0 mm PPD to be Administered?: No - Reproductive History Last Menstrual Period: 01/24/18 - Smoking Cessation Smoking history: Current every day smoker Have you smoked in the past 12 months: Yes Aproximately how many cigarettes per day: 10 Cigars Per Day: 0 Hx Chewing Tobacco Use: No Initiated information on smoking cessation: Yes 'Breaking Loose' booklet given: 03/04/19 - Substance & Tx. History Hx Alcohol Use: Yes Hx Substance Use: Yes Substance Use Type: Alcohol, Cocaine - Substances abused Alcohol Substance route: Oral Frequency: Daily Amount used: 6 packs of beer Age of first use: 21 Date of last use: 03/03/19 Marijuana/Hashish Substance route: Smoking Frequency: Daily Amount used: 2 joints Age of first use: 15 Date of last use: 03/04/19 Family Disease History - Family Disease History Family Disease History: Other: Father (asthma,Alcoholic), Mother (Alcoholic) Admission Physical Exam [facility] - Vital Signs Vital Signs: Vital Signs - 24 hr 03/04/19 12:55 Temperature 97.8 F Pulse Rate 69 Respiratory 16 Rate Blood Pressure 123/88 - Physical General Appearance: Yes: Appropriately Dressed, Moderate Distress, Thin, Tremorous, Irritable, Sweating, Anxious HEENTM: Yes: Hearing grossly Normal, Normal Voice, Nasal Congestion, Rhinorrhea , Thrush Respiratory: Yes: Lungs Clear, Normal Breath Sounds, No Respiratory Distress Neck: Yes: No masses,lesions,Nodules Breast: Yes: Within Normal Limits Cardiology: Yes: Regular Rhythm, Regular Rate, S1, S2 Abdominal: Yes: Normal Bowel Sounds, Non Tender, Soft Genitourinary: Yes: Within Normal Limits Back: Yes: Normal Inspection Musculoskeletal: Yes: Back pain, Muscle Pain Extremities: Yes: Normal Capillary Refill, Non-Tender, Tremors Neurological: Yes: Fully Oriented, Alert, Normal Response Integumentary: Yes: Within Normal Limits, Diaphoresis Lymphatic: Yes: Within Normal Limits - Diagnostic (1) Bipolar disorder Current Visit: No Status: Acute (2) Drug-induced mood disorder Current Visit: No Status: Acute (3) Insomnia Current Visit: No Status: Acute (4) Substance induced mood disorder Current Visit: No Status: Acute (5) Weight loss Current Visit: No Status: Acute (6) Alcohol dependence with uncomplicated intoxication Current Visit: Yes Status: Chronic (7) Asthma Current Visit: No Status: Chronic Qualifiers: Asthma severity: mild Asthma complication type: uncomplicated (8) Cannabis dependence Current Visit: Yes Status: Chronic (9) Depression Current Visit: No Status: Chronic (10) HIV (human immunodeficiency virus infection) Current Visit: Yes Status: Chronic Qualifiers: HIV symptom status: unspecified Qualified Code(s): B20 - Human immunodeficiency virus [HIV] disease (11) Hypertension Current Visit: Yes Status: Chronic Qualifiers: Hypertension type: essential hypertension Qualified Code(s): I10 - Essential (primary) hypertension (12) Nicotine dependence Current Visit: Yes Status: Chronic Qualifiers: Nicotine product type: cigarettes Substance use status: uncomplicated Qualified Code(s): F17.210 - Nicotine dependence, cigarettes, uncomplicated (13) Thrush, oral Current Visit: Yes Status: Acute Cleared for Admission S - Detox or Rehab [facility] Level of Care: Medically Managed Detox Regimen/Protocol: Librium Breathalyzer - Breathalyzer Breathalyzer: 0.079 Urine Drug Screen - Test Device Lot number: [id number] Expiration date: 11/11/20 - Control Is test valid?: Yes - Results Drug screen NEGATIVE: No Urine drug screen results: THC-Marijuana Inpatient Rehab Admission - Rehab Decision to Admit Inpatient rehab admission?: No
[2019-03-04] MEDS ORDERED: IBUPROFEN 400 MG TABLET (FP) PO PRN (15:18)
[2019-03-04] MEDS ORDERED: NICOTINE POLACRILEX 4 MG GUM BUC PRN (15:18)
[2019-03-04] MEDS ORDERED: MAGNESIUM CITRATE 300 ML BOTTLE PO PRN (15:18)
[2019-03-04] MEDS ORDERED: BISMUTH SUBSALICYLATE 262 MG/15 ML BTL PO PRN (15:18)
[2019-03-04] MEDS ORDERED: MENTHOL/PHENOL 1 EACH UD MM PRN (15:18)
[2019-03-04] MEDS ORDERED: MAGNESIUM HYDROX 2400MG/30ML ORAL SUSPENSION 30 ML CUP PO PRN (15:18)
[2019-03-04] MEDS ORDERED: ONDANSETRON *ODT* 4 MG TABLET SL PRN (15:18)
[2019-03-04] MEDS ORDERED: chlordiazePOXIDE HCL 25 MG CAPSULE PO PRN (15:18)
[2019-03-04] MEDS ORDERED: ACETAMINOPHEN 325 MG TABLET (FP) PO PRN ×2 (15:18)
[2019-03-04] MEDS ORDERED: METHOCARBAMOL 500 MG TABLET PO PRN (15:18)
[2019-03-04] MEDS ORDERED: MELATONIN 5 MG TABLETS PO PRN (15:18)
[2019-03-04] MEDS ORDERED: MAG HYDROX/AL HYDROX/SIMETH 30 ML UNIT-DOSE CUP PO PRN (15:18)
[2019-03-04] MEDS ORDERED: chlordiazePOXIDE HCL 25 MG CAPSULE PO ONE (15:30)
--- NOTE | 2019-03-04 17:53 | CONSULT ---
[facility] Psychiatric Consult - Data Date of interview: 03/04/19 Admission source: [facility] Identifying data: Readmission to [facility] for this 43 y/o AA female self- referred for detoxification (alcohol, cannabis). Examined at [address] [place] [address]. Patient is single, a mother of two, domiciled, unemployed and supported on [facility] benefits. Substance Abuse History: Discussed in this interview. Max confirmed this extract of [facility] report as accurate about her drug history : Smoking history: Current every day smoker. Have you smoked in the past 12 months: Yes. Aproximately how many cigarettes per day: 10. Cigars Per Day: 0. Hx Chewing Tobacco Use: No. Initiated information on smoking cessation: Yes. 'Breaking Loose' booklet given: 03/04/19. - Substance & Tx. History. Hx Alcohol Use: Yes. Hx Substance Use: Yes. Substance Use Type: Alcohol, Cocaine. - Substances abused. Alcohol. Substance route: Oral. Frequency: Daily. Amount used: 6 packs of beer. Age of first use: 21. Date of last use: . Marijuana/Hashish. Substance route: Smoking. Frequency: Daily. Amount used: 2 joints. Age of first use: 15. Date of last use: 03/04/19 Medical History: HIV infection since 2005 (non-compliant with ART medications), hypertension and bronchial asthma. Psychiatric History: Patient admits to a history of one psychiatric hospitalization (2013) at [facility]. Was retained for a week. Patient endorses the diagnosis of Bipolar Disorder.Currently medicated with mirtazapine 7.5 mg/hs + seroquel 250 mg/hs. Ms Nieto is reportedly [facility]. She denies history of suicide attempts. Physical/Sexual Abuse/Trauma History: Patient denies. Additional Comment: Urine drug screen results: THC-Marijuana. Noted. Mental Status Exam - Mental Status Exam Alert and Oriented to: Time, Place, Person Cognitive Function: Good Patient Appearance: Well Groomed (thin habitus) Mood: Nervous, Anxious Affect: Appropriate, Mood Congruent, Normal Range Patient Behavior: Fatigued, Appropriate, Cooperative Speech Pattern: Clear Voice Loudness: Normal Thought Process: Intact, Goal Oriented Thought Disorder: Not Present Hallucinations: Denies Suicidal Ideation: Denies Homicidal Ideation: Denies Insight/Judgement: Poor Sleep: Poorly, Difficulty falling asleep Appetite: Fair, Weight loss Gait/Station: Normal Psychiatric Findings - Problem List ([place] 1, 2,3) (1) Alcohol dependence with uncomplicated intoxication Current Visit: Yes Status: Acute (2) Cannabis dependence Current Visit: Yes Status: Chronic (3) Nicotine dependence Current Visit: Yes Status: Chronic Qualifiers: Nicotine product type: cigarettes Substance use status: uncomplicated Qualified Code(s): F17.210 - Nicotine dependence, cigarettes, uncomplicated (4) Insomnia Current Visit: Yes Status: Chronic (5) Substance induced mood disorder Current Visit: Yes Status: Chronic (6) History of bipolar disorder Current Visit: Yes Status: Chronic - Initial Treatment Plan Initial Treatment Plan: Psychoeducation. Sleep hygiene. Detoxification. AA meetings. Support. Medications : seroquel 100 mg po hs + remeron 7.5 mg po hs. Side effects/benefits of both drugs are discussed with patient. Verbal consent given to MD. Quintanilla.
[2019-03-04] MEDS: chlordiazePOXIDE HCL 25 MG CAPSULE PO SCH ×2 (17:57→22:16)
[2019-03-04] MEDS: CLOTRIMAZOLE 10 MG TROCHE (FP) PO SCH (18:06)
[2019-03-04] MEDS: ALBUTEROL SO4 8 GM HFA INHALER IH PRN (20:21)
[2019-03-04] MEDS: MIRTAZAPINE 15 MG TABLET (FP) PO SCH (22:14)
[2019-03-04] MEDS: THIAMINE HCL 100 MG TABLET (FP) PO SCH (22:15)
[2019-03-04] MEDS ORDERED: QUEtiapine FUMARATE 100 MG TABLET (FP) PO ONE (22:44)
[2019-03-05] MEDS: CLOTRIMAZOLE 10 MG TROCHE (FP) PO SCH ×6 (00:21→21:53)
[2019-03-05] MEDS: ALBUTEROL SO4 8 GM HFA INHALER IH PRN ×3 (05:52→21:54)
[2019-03-05] MEDS: chlordiazePOXIDE HCL 25 MG CAPSULE PO SCH ×4 (06:35→22:12)
[2019-03-05] MEDS: ELVITEG/COB/EMTRI/TENOF (GENVOYA) TABLET (NF) PO SCH (09:31)
[2019-03-05] MEDS: LOSARTAN 50MG/HCTZ 12.5MG 1 TAB (FP) PO SCH (10:13)
[2019-03-05] MEDS: ASPIRIN 81 MG CHEWABLE TABLETS PO SCH (10:13)
[2019-03-05] MEDS: SULFAMETHOXAZOLE/TRIMETHOPRIM 800MG/160MG D.S. TABLET PO SCH (10:13)
[2019-03-05] MEDS: PRENATAL VITAMINS W/ FOLIC ACID TABLET (FP) PO SCH (10:13)
[2019-03-05] MEDS: NICOTINE 21 MG/24 HOURS TOPICAL PATCH TD SCH (10:14)
[2019-03-05] MEDS: hydrOXYzine PAMOATE 25 MG CAPSULE (FP) PO PRN (11:57)
--- NOTE | 2019-03-05 11:58 | PN ---
S CIWA - CIWA Score Nausea/Vomitin-No Nausea/No Vomiting Muscle Tremors: 3 Anxiety: 2 Agitation: 2 Paroxysmal Sweats: 3 Orientation: 0-Oriented Tacttile Disturbances: 0-None Auditory Disturbances: 0-None Visual Disturbances: 0-None Headache: 2-Mild CIWA-Ar Total Score: 12 [facility] Progress Note (SOAP) Subjective: c/o sweats, headache, anxiety, and shakes. Objective: 03/05/19 11:57 Vital Signs 03/05/19 03/05/19 08:35 09:15 Temperature 97.3 F L 97.7 F Pulse Rate 73 73 Respiratory 18 16 Rate Blood Pressure 151/104 H 151/101 H Labs pending. Assessment: 03/05/19 11:57 AOX3, in no acute distress full rom, ambulating in the unit withdrawal symptoms. Plan: continue detox monitor BP.
[2019-03-05 12:20] LABS: HEMATOCRIT 43.4 % (32.4-45.2); HEMOGLOBIN 14.4 GM/dL (10.7-15.3); MCH 33.5 pg (25.7-33.7); MCHC 33.2 g/dl (32.0-36.0); MEAN CELL VOLUME 101.1 fl (80-96); MEAN PLT VOLUME 8.8 fl (7.5-11.1); PLATELET COUNT 205 K/MM3 (134-434); RBC 4.29 M/mm3 (3.60-5.2); RDW 13.2 % (11.6-15.6); WHITE BLOOD COUNT 2.9 K/mm3 (4.0-10.0)
[2019-03-05 12:27] LABS: ALBUMIN 3.9 g/dl (3.4-5.0); BILIRUBIN,TOTAL 0.5 mg/dL (0.2-1); CALCIUM 9.7 mg/dL (8.5-10.1); CREATININE 0.8 mg/dL (0.55-1.3); POTASSIUM 3.4 mmol/L (3.5-5.1); TOT PROT 8.9 g/dl (6.4-8.2)
--- NOTE | 2019-03-05 13:24 | PN ---
[facility] Progress Note Note: Psychiatry Attending's note : Met with patient this morning. Medications discussed. Complaint : insomnia. Intervention : seroquel dose is increased to 200 mg po hs. Ms Nieto is observed as ambulatory and steady. Vitals checked. Discussed with nurse Kidd. Patient agrees with plan of care.
[2019-03-05] MEDS ORDERED: cloNIDine HCL 0.1 MG TABLET PO ONE (18:12)
[2019-03-05] MEDS: MIRTAZAPINE 15 MG TABLET (FP) PO SCH (21:53)
[2019-03-05] MEDS: QUEtiapine FUMARATE 200 MG TABLET PO SCH (21:54)
[2019-03-05] MEDS: THIAMINE HCL 100 MG TABLET (FP) PO SCH (21:54)
[2019-03-05] MEDS ORDERED: QUEtiapine FUMARATE 100 MG TABLET (FP) PO SCH (22:00)
[2019-03-06] MEDS: chlordiazePOXIDE HCL 25 MG CAPSULE PO SCH ×2 (06:19→10:00)
[2019-03-06] MEDS: CLOTRIMAZOLE 10 MG TROCHE (FP) PO SCH ×5 (06:21→21:59)
[2019-03-06] MEDS: ALBUTEROL SO4 8 GM HFA INHALER IH PRN ×2 (06:25→10:54)
[2019-03-06] MEDS: ASPIRIN 81 MG CHEWABLE TABLETS PO SCH (09:57)
[2019-03-06] MEDS: LOSARTAN 50MG/HCTZ 12.5MG 1 TAB (FP) PO SCH (09:58)
[2019-03-06] MEDS: SULFAMETHOXAZOLE/TRIMETHOPRIM 800MG/160MG D.S. TABLET PO SCH (09:58)
[2019-03-06] MEDS: PRENATAL VITAMINS W/ FOLIC ACID TABLET (FP) PO SCH (09:58)
[2019-03-06] MEDS: NICOTINE 21 MG/24 HOURS TOPICAL PATCH TD SCH (09:59)
[2019-03-06] MEDS: ELVITEG/COB/EMTRI/TENOF (GENVOYA) TABLET (NF) PO SCH (11:21)
[2019-03-06] MEDS: hydrOXYzine PAMOATE 25 MG CAPSULE (FP) PO PRN (14:14)
--- NOTE | 2019-03-06 16:24 | PN ---
[facility] CIWA - CIWA Score Nausea/Vomitin-Mild Nausea/No Vomiting Muscle Tremors: 3 Anxiety: 3 Agitation: 3 Paroxysmal Sweats: 3 Orientation: 0-Oriented Tacttile Disturbances: 0-None Auditory Disturbances: 0-None Visual Disturbances: 0-None Headache: 0-None Present CIWA-Ar Total Score: 13 S Progress Note (SOAP) Subjective: Patient stated she's feeling fine as her symptoms are controlled with medications. She refused to elaborate. Objective: 03/06/19 16:19 Last Vital Signs Temp Pulse Resp BP Pulse Ox 96.3 F L 94 H 18 124/83 03/06/19 14:54 03/06/19 14:54 03/06/19 14:54 03/06/19 14:54 Laboratory Tests 03/05/19 03/05/19 03/05/19 09:00 09:00 09:00 WBC 2.9 L RBC 4.29 Hgb 14.4 Hct 43.4 MCV 101.1 H MCH 33.5 MCHC 33.2 RDW 13.2 Plt Count 205 MPV 8.8 Sodium 136 Potassium 3.4 L Chloride 101 Carbon Dioxide 30 Anion Gap 5 L BUN 9 Creatinine 0.8 Est GFR (CKD-EPI)AfAm 104.65 Est GFR (CKD-EPI)NonAf 90.30 Random Glucose 93 Calcium 9.7 Total Bilirubin 0.5 AST 129 H ALT 88 H Alkaline Phosphatase 134 H Total Protein 8.9 H Albumin 3.9 RPR Titer Nonreactive Labs reviewed: WBC 2.9, K 3.4, Elevated LFTs (AST, ALT, Alk phos, total protein) Assessment: 03/06/19 16:21 Withdrawal symptoms Noted with mild hypokalemia and elevated LFTs Plan: Continue detox Encouraged PO water hydration Hypokalemia: K Dur 40 Meq PO x 1 dose, send serum K level in AM Elevated LFTs: could be r/t alcoholism, repeat hepatic panel in AM
[2019-03-06] MEDS ORDERED: POTASSIUM CHLORIDE TABS 20 MEQ TABLET.ER (FP) PO ONE (16:26)
[2019-03-06] MEDS: chlordiazePOXIDE HCL 10 MG CAPSULE PO SCH ×2 (17:15→22:00)
[2019-03-06] MEDS: THIAMINE HCL 100 MG TABLET (FP) PO SCH (22:00)
[2019-03-06] MEDS: QUEtiapine FUMARATE 200 MG TABLET PO SCH (22:00)
[2019-03-06] MEDS: MIRTAZAPINE 15 MG TABLET (FP) PO SCH (22:00)
[2019-03-07] MEDS: chlordiazePOXIDE HCL 10 MG CAPSULE PO SCH (06:01)
[2019-03-07] MEDS: CLOTRIMAZOLE 10 MG TROCHE (FP) PO SCH (06:02)
[2019-03-07] MEDS: ALBUTEROL SO4 8 GM HFA INHALER IH PRN (06:08)
[2019-03-07] MEDS ORDERED: ALBUTEROL SO4 8 GM HFA INHALER IH ONE (06:41)
[2019-03-07] MEDS: ELVITEG/COB/EMTRI/TENOF (GENVOYA) TABLET (NF) PO SCH (07:20)
[2019-03-07 07:45] VITALS: BP 110/93; PULSE 127; TEMP 96.8
--- NOTE | 2019-03-07 10:18 | DS ---
[facility] Detox Discharge Summary Admission Date: 03/04/19 Discharge Date: 03/07/19 - History Present History: Alcohol Dependence, Cannabis Dependence - Physical Exam Results Vital Signs: Vital Signs Temperature 96.8 F L 03/07/19 07:44 Pulse Rate 127 H 03/07/19 07:44 Respiratory Rate 20 03/07/19 07:44 Blood Pressure 110/93 03/07/19 07:44 O2 Sat by Pulse Oximetry (%) - Treatment Hospital Course: Detox Protocol Followed, Detoxed Safely, Responded well, Discharged Condition Good, Rehab Referral Accepted - Medication Discharge Medications: Ambulatory Orders Albuterol Sulfate Inhaler - [Ventolin HFA Inhaler -] 2 inh IH Q4H PRN #1 inh 11/28 Amlodipine Besylate [Norvasc -] 10 mg PO DAILY 06/05/17 Aspirin [ASA -] 81 mg PO DAILY 06/05/17 Losartan/Hydrochlorothiazide [Losartan-Hctz 50-12.5 mg Tab] 1 each PO DAILY Sulfamethoxazole/Trimethoprim [Bactrim Ds -] 1 tab PO DAILY 06/05/17 Elviteg/Cob/Emtri/Tenof Alafen [Genvoya Tablet] 1 each PO DAILY 09/20/18 Quetiapine Fumarate [Seroquel] 150 mg PO HS #30 tablet 09/20/18 Mirtazapine 7.5 mg PO HS #30 tablet 11/02/18 Quetiapine Fumarate [Seroquel -] 200 mg PO HS #30 tab 11/02/18 - Diagnosis (1) Bipolar disorder Current Visit: No Status: Acute (2) Drug-induced mood disorder Current Visit: No Status: Acute (3) Insomnia Current Visit: Yes Status: Chronic (4) Substance induced mood disorder Current Visit: Yes Status: Chronic (5) Weight loss Current Visit: No Status: Acute (6) Alcohol dependence with uncomplicated intoxication Current Visit: Yes Status: Chronic (7) Asthma Current Visit: No Status: Chronic Qualifiers: Asthma severity: mild Asthma persistence: unspecified Asthma complication type: uncomplicated Qualified Code(s): J45.909 - Unspecified asthma, uncomplicated (8) Cannabis dependence Current Visit: Yes Status: Chronic (9) Depression Current Visit: No Status: Chronic (10) HIV (human immunodeficiency virus infection) Current Visit: Yes Status: Chronic Qualifiers: HIV symptom status: unspecified Qualified Code(s): B20 - Human immunodeficiency virus [HIV] disease (11) Hypertension Current Visit: Yes Status: Chronic Qualifiers: Hypertension type: essential hypertension Qualified Code(s): I10 - Essential (primary) hypertension (12) Nicotine dependence Current Visit: Yes Status: Chronic Qualifiers: Nicotine product type: cigarettes Substance use status: uncomplicated Qualified Code(s): F17.210 - Nicotine dependence, cigarettes, uncomplicated (13) Thrush, oral Current Visit: Yes Status: Acute - AMA Did Patient Leave Against Medical Advice: No (declined rehab; going home will f/ u with her PCP)
[2019-03-07] MEDS ORDERED: chlordiazePOXIDE HCL 10 MG CAPSULE PO SCH (17:00)
== END 2019-03-07 09:47 | disposition home or self-care (01) | DRG 775 ==
LOC: YASAS 09:25 → Y6N 15:06
PROVIDERS: ADMIT Surgery; ATTEND Surgery
PROC: HZ2ZZZZ Detoxification Services for Substance Abuse Treatment (ICD-10-PCS; principal; 2019-03-04)
DX: F10.230 Alcohol dependence with withdrawal, uncomplicated (principal); F10.220 Alcohol dependence with intoxication, uncomplicated; F12.20 Cannabis dependence, uncomplicated; F17.200 Nicotine dependence, unspecified, uncomplicated; F19.24 Other psychoactive substance dependence with psychoactive substance-induced mood disorder; F31.9 Bipolar disorder, unspecified; Z21 Asymptomatic human immunodeficiency virus [HIV] infection status; G47.00 Insomnia, unspecified; B37.0 Candidal stomatitis; R63.4 Abnormal weight loss; Z68.1 Body mass index [BMI] 19.9 or less, adult; J45.909 Unspecified asthma, uncomplicated; I10 Essential (primary) hypertension
CPT/HCPCS: 36415; 80053; 81025; 85027; 86593; J0735

== ENCOUNTER 2019-07-06 09:38 | Inpatient (IN) | payer OTHER ==
--- NOTE | 2019-07-06 10:43 | HP ---
CIWA Score Nausea/Vomitin-Mild Nausea/No Vomiting Muscle Tremors: 3 Anxiety: 3 Agitation: 1-Slight > Activity Paroxysmal Sweats: 4-Forehead w/Sweat Beads Orientation: 0-Oriented Tacttile Disturbances: 0-None Auditory Disturbances: 0-None Visual Disturbances: 0-None Headache: 2-Mild CIWA-Ar Total Score: 14 - Admission Criteria OASAS Guidelines: Admission for Medically Managed Detox: Requires at least one of the followin. CIWA greater than 12 2. Seizures within the past 24 hours 3. Delirium tremens within the past 24 hours 4. Hallucinations within the past 24 hours 5. Acute intervention needed for co occurring medical disorder 6. Acute intervention needed for co occurring psychiatric disorder 7. Severe withdrawal that cannot be handled at a lower level of care (continued vomiting, continued diarrhea, abnormal vital signs) requiring intravenous medication and/or fluids 8. Admission ROS S - [facility] Chief Complaint: " I need help and I want to stop drinking. It isn't worth it anymore." Allergies/Adverse Reactions: Allergies Allergy/AdvReac Type Severity Reaction Status Date / Time apple Allergy Severe Difficulty Verified 07/06/19 10:48 Breathing peanut Allergy Severe Difficulty Verified 07/06/19 10:48 Breathing No Known Drug Allergies Allergy Verified 07/06/19 10:48 History of Present Illness: 44 year old black female with alcohol dependence with withdrawals. 4 25 ounce cans of beer a day. She has had blackout 2013. No seizures. She is a patient of [facility] and gets counseling and support services there. She is not homeless and she has some family support systems. Asthma, Depression and Bipolar. Patient is on seroquel with an outside psychiatrist. Exam Limitations: No Limitations - Ebola screening Have you traveled outside of the country in the last 21 days: No Have you had contact with anyone from an Ebola affected area: No Have you been sick,other than usual withdrawal symptoms: No Do you have a fever: No - Review of Systems Constitutional: Chills, Diaphoresis EENT: reports: No Symptoms Reported Respiratory: reports: No Symptoms reported Cardiac: reports: No Symptoms Reported : reports: No Symptoms Reported Musculoskeletal: reports: Muscle Pain Integumentary: reports: No Symptoms Reported Neuro: reports: Headache, Tremors Endocrine: reports: No Symptoms Reported Hematology: reports: No Symptoms Reported Psychiatric: reports: Agitated, Anxious, Depressed Other Systems: Reviewed and Negative Patient History - Patient Medical History Hx Anemia: No Hx Asthma: Yes (on albuterol inhaler) Hx Chronic Obstructive Pulmonary Disease (COPD): No Hx Cancer: No Hx Cardiac Disorders: No Hx Congestive Heart Failure: No Hx Hypertension: Yes (losartan and asprin) Hx Hypercholesterolemia: No Hx Pacemaker: No HX Cerebrovascular Accident: No Hx Seizures: No Hx Dementia: No Hx Diabetes: No Hx Gastrointestinal Disorders: No Hx Liver Disease: No Hx Genitourinary Disorders: No Hx Sexually Transmitted Disorders: No Hx Renal Disease (ESRD): No Hx Thyroid Disease: No Hx Human Immunodeficiency Virus (HIV): Yes (SINCE 2005, NO FIGUEROA MEDS,CD4+ less than 200 = AIDS,thrush.) Hx Hepatitis C: No Hx Depression: Yes Hx Suicide Attempt: No Hx Bipolar Disorder: Yes Hx Schizophrenia: No - Patient Surgical History Past Surgical History: No Hx Neurologic Surgery: No Hx Cataract Extraction: No Hx Cardiac Surgery: No Hx Lung Surgery: No Hx Breast Surgery: No Hx Breast Biopsy: No Hx Abdominal Surgery: No Hx Appendectomy: No Hx Cholecystectomy: No Hx Genitourinary Surgery: No Hx Section: No Hx Orthopedic Surgery: No Anesthesia Reaction: No - PPD History Date: 09/22/18 Results: 0 mm - Reproductive History Last Menstrual Period: 01/24/18 - Smoking Cessation Smoking history: Current every day smoker Have you smoked in the past 12 months: Yes Aproximately how many cigarettes per day: 10 Cigars Per Day: 0 Hx Chewing Tobacco Use: No Initiated information on smoking cessation: Yes 'Breaking Loose' booklet given: 07/06/19 - Substances abused Alcohol Substance route: Oral Frequency: Daily Amount used: 6 packs of beer Age of first use: 21 Date of last use: 03/03/19 Marijuana/Hashish Substance route: Smoking Frequency: Daily Amount used: 2 joints Age of first use: 15 Date of last use: 03/04/19 Admission Physical Exam [facility] - Physical General Appearance: Yes: Mild Distress, Alcohol on Breath, Tremorous HEENTM: Yes: EOMI, Hearing grossly Normal, Normocephalic, Normal Voice, IKE, Tm 's normal, Other (shotty lymph nodes.) Respiratory: Yes: Chest Non-Tender, Lungs Clear, Normal Breath Sounds Neck: Yes: No masses,lesions,Nodules, Supple, Trachea in good position Breast: Yes: Breast Exam Deferred Cardiology: Yes: Regular Rhythm, Regular Rate, S1, S2 Abdominal: Yes: Normal Bowel Sounds, Non Tender, Flat, Soft. 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 NML intact, Fully Oriented, Alert, Motor Strength 5/5, Normal Mood/Affect Integumentary: Yes: Normal Color, Warm Lymphatic: Yes: Within Normal Limits - Diagnostic (1) Weight loss Current Visit: Yes Status: Acute (2) Alcohol dependence with uncomplicated intoxication Current Visit: Yes Status: Chronic (3) Asthma Current Visit: Yes Status: Chronic Qualifiers: Asthma severity: mild Asthma persistence: unspecified Asthma complication type: uncomplicated Qualified Code(s): J45.909 - Unspecified asthma, uncomplicated (4) Cannabis dependence Current Visit: Yes Status: Chronic (5) Depression Current Visit: Yes Status: Chronic (6) HIV (human immunodeficiency virus infection) Current Visit: Yes Status: Chronic Qualifiers: HIV symptom status: unspecified Qualified Code(s): B20 - Human immunodeficiency virus [HIV] disease (7) History of bipolar disorder Current Visit: Yes Status: Chronic Screened but not Admitted - Documentation of Visit Screened but not Admitted: No Left Prior to Completion of Assessment: No Insurance Authorization Denied: No Patient Does Not Meet Criteria for Admission: No Alternative Treatment/Care Home Info Provided: No Breathalyzer - Breathalyzer Breathalyzer: 0.079 Vital Signs - Vital Signs Vital signs refused: No Urine Drug Screen - Test Device Lot number: [id number] Expiration date: 11/11/20 - Control Is test valid?: Yes - Results Drug screen NEGATIVE: No Urine drug screen results: THC-Marijuana Inpatient Rehab Admission - Rehab Decision to Admit Inpatient rehab admission?: No
[2019-07-06 11:05] VITALS: BMI 17.2
[2019-07-06] MEDS ORDERED: MELATONIN 5 MG TABLETS PO PRN (11:55)
[2019-07-06] MEDS ORDERED: chlordiazePOXIDE HCL 25 MG CAPSULE PO PRN (11:55)
[2019-07-06] MEDS ORDERED: METHOCARBAMOL 500 MG TABLET PO PRN (11:55)
[2019-07-06] MEDS ORDERED: MENTHOL/PHENOL 1 EACH UD MM PRN (11:55)
[2019-07-06] MEDS ORDERED: MAGNESIUM CITRATE 300 ML BOTTLE PO PRN (11:55)
[2019-07-06] MEDS ORDERED: IBUPROFEN 400 MG TABLET (FP) PO PRN (11:55)
[2019-07-06] MEDS ORDERED: MAGNESIUM HYDROX 2400MG/30ML ORAL SUSPENSION 30 ML CUP PO PRN (11:55)
[2019-07-06] MEDS ORDERED: BISMUTH SUBSALICYLATE 262 MG/15 ML BTL PO PRN (11:55)
[2019-07-06] MEDS ORDERED: hydrOXYzine PAMOATE 25 MG CAPSULE (FP) PO PRN (11:55)
[2019-07-06] MEDS ORDERED: MAG HYDROX/AL HYDROX/SIMETH 30 ML UNIT-DOSE CUP PO PRN (11:55)
[2019-07-06] MEDS ORDERED: ACETAMINOPHEN 325 MG TABLET (FP) PO PRN ×2 (11:55)
[2019-07-06] MEDS: ASPIRIN COATED 81 MG TABLET.EC PO SCH (12:29)
[2019-07-06] MEDS: chlordiazePOXIDE HCL 25 MG CAPSULE PO SCH ×3 (12:30→22:21)
[2019-07-06] MEDS: NICOTINE 14 MG/24 HOURS TOPICAL PATCH TD SCH (12:37)
[2019-07-06] MEDS: ALBUTEROL SO4 8 GM HFA INHALER IH PRN (15:37)
[2019-07-06 15:40] LABS: HEMATOCRIT 41.5 % (32.4-45.2); MCH 34.3 pg (25.7-33.7); MCHC 33.6 g/dl (32.0-36.0); MEAN CELL VOLUME 101.8 fl (80-96); MEAN PLT VOLUME 8.7 fl (7.5-11.1); PLATELET COUNT 220 K/MM3 (134-434); RBC 4.07 M/mm3 (3.60-5.2); RDW 12.4 % (11.6-15.6); WHITE BLOOD COUNT 3.7 K/mm3 (4.0-10.0)
[2019-07-06 15:51] LABS: ALBUMIN 4.4 g/dl (3.4-5.0); BILIRUBIN,TOTAL 0.7 mg/dL (0.2-1); BLOOD UREA NITROGEN 10.4 mg/dL (7-18); CALCIUM 9.1 mg/dL (8.5-10.1); CREATININE 0.8 mg/dL (0.55-1.3); TOT PROT 9.4 g/dl (6.4-8.2)
[2019-07-06] MEDS ORDERED: ONDANSETRON *ODT* 4 MG TABLET SL PRN (17:44)
[2019-07-06] MEDS ORDERED: QUEtiapine FUMARATE 200 MG TABLET PO ONE (22:00)
[2019-07-06] MEDS: THIAMINE HCL 100 MG TABLET (FP) PO SCH (22:21)
[2019-07-07] MEDS: chlordiazePOXIDE HCL 25 MG CAPSULE PO SCH ×4 (06:56→23:27)
--- NOTE | 2019-07-07 09:08 | PN ---
S CIWA - CIWA Score Nausea/Vomitin-Mild Nausea/No Vomiting Muscle Tremors: 4-Moderate,w/Arms Extend Anxiety: 4-Mod. Anxious/Guarded Agitation: 4-Moderately Restless Paroxysmal Sweats: 1-Minimal Palms Moist Orientation: 0-Oriented Tacttile Disturbances: 0-None Auditory Disturbances: 0-None Visual Disturbances: 0-None Headache: 0-None Present CIWA-Ar Total Score: 14 BHS Progress Note (SOAP) Subjective: nausea sweats shakes restless agitation irritable Objective: 07/07/19 09:06 Vital Signs Temperature 97.2 F L 07/07/19 07:34 Pulse Rate 108 H 07/07/19 07:34 Respiratory Rate 20 07/07/19 07:34 Blood Pressure 128/97 07/07/19 07:34 O2 Sat by Pulse Oximetry (%) Laboratory Tests 07/06/19 07/06/19 12:15 12:15 WBC 3.7 L RBC 4.07 Hgb 14.0 Hct 41.5 MCV 101.8 H MCH 34.3 H MCHC 33.6 RDW 12.4 Plt Count 220 MPV 8.7 Sodium 134 L Potassium 4.0 Chloride 96 L Carbon Dioxide 20 L Anion Gap 18 H BUN 10.4 Creatinine 0.8 Est GFR (CKD-EPI)AfAm 103.92 Est GFR (CKD-EPI)NonAf 89.66 Random Glucose 65 L Calcium 9.1 Total Bilirubin 0.7 AST 78 H ALT 50 Alkaline Phosphatase 120 H Total Protein 9.4 H Albumin 4.4 labs noted aaox3 ambulating no acute distress Assessment: 07/07/19 09:06 withdrawals sx Plan: continue detox Reglan ordered pre-meals increase 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
[2019-07-07] MEDS: ELVITEG/COB/EMTRI/TENOF (GENVOYA) TABLET (NF) PO SCH (10:11)
[2019-07-07] MEDS: LOSARTAN 50MG/HCTZ 12.5MG 1 TAB (FP) PO SCH (10:11)
[2019-07-07] MEDS: NICOTINE 14 MG/24 HOURS TOPICAL PATCH TD SCH (10:11)
[2019-07-07] MEDS: ASPIRIN COATED 81 MG TABLET.EC PO SCH (10:11)
[2019-07-07] MEDS: MULTIVITAMINS (DAILY MVI) TABLET (FP) PO SCH (10:12)
[2019-07-07] MEDS: METOCLOPRAMIDE HCL 10 MG TABLET (FP) PO SCH ×2 (11:18→17:20)
[2019-07-07] MEDS ORDERED: FLU VACCINE QUAD 60 MCG/0.5 ML (MDV 19-20) IM ONE (12:00)
--- NOTE | 2019-07-07 14:17 | CONSULT ---
[facility] Psychiatric Consult - Data Date of interview: 07/07/19 Admission source: Self-referred Identifying data: Ms Nieto is a 44 years old single Black female, mother of 2 children, unemployed on public assistance, domiciled seeking detox treatment for alcohol and cannabis Substance Abuse History: Reports history of alcohol and cannabis use. Refer to addiction counselor's summary for further information Medical History: Significant for HIV infection since 2006 (non-compliant with ART medications), hypertension and bronchial asthma. Smokes 10 cigarettes daily Psychiatric History: Patient is kmown to this facility from previous admission. reports that her first psychiatric contact was in 2013 when she was admitted to admits to [facility] for a week. She was diagnosed with Bipolar Disorder and started on psychotropic medications. Reports that she was followed up at [facility] and she was prescribed Mirtazapine 7.5 mg/hs, Seroquel 250 mg/hs. During most recent admission to this facility, she was seen on by Dr Delcid and she was prescribed Remeron 7.5 mg/hs and Seroquel 100 mg/ hs. Reports receiving psychiatric treatment at [facility] and she is prescribed Seroquel(unknown dosage). She denies history of suicide attempts. At present, demies experiencing psychotic, manic or depressive symptoms, S/H ideations. However, feels somewhat irritable and sleeping poorly. Patient was seen by Dr Jack on admission and started on Seroquel 200 mg/hs Physical/Sexual Abuse/Trauma History: Denies history of abuse as well as DV relationship Mental Status Exam - Mental Status Exam Alert and Oriented to: Time, Place, Person Cognitive Function: Fair Patient Appearance: Well Groomed Mood: Irritable Speech Pattern: Clear Voice Loudness: Normal Thought Process: Intact, Goal Oriented Hallucinations: Denies Suicidal Ideation: Denies Homicidal Ideation: Denies Insight/Judgement: Poor Sleep: Poorly Appetite: Good Muscle strength/Tone: Normal Gait/Station: Normal Psychiatric Findings - Problem List ([place] 1, 2,3) (1) Bipolar disorder Current Visit: No Status: Chronic (2) Substance induced mood disorder Current Visit: Yes Status: Acute (3) Substance-induced sleep disorder Current Visit: Yes Status: Acute (4) Alcohol dependence with uncomplicated intoxication Current Visit: Yes Status: Acute (5) Cannabis dependence Current Visit: Yes Status: Acute (6) Nicotine dependence Current Visit: No Status: Chronic Qualifiers: Nicotine product type: cigarettes Substance use status: uncomplicated Qualified Code(s): F17.210 - Nicotine dependence, cigarettes, uncomplicated (7) Asthma Current Visit: Yes Status: Chronic Qualifiers: Asthma severity: mild Asthma persistence: unspecified Asthma complication type: uncomplicated Qualified Code(s): J45.909 - Unspecified asthma, uncomplicated (8) HIV (human immunodeficiency virus infection) Current Visit: Yes Status: Chronic Qualifiers: HIV symptom status: unspecified Qualified Code(s): B20 - Human immunodeficiency virus [HIV] disease (9) Hypertension Current Visit: No Status: Chronic Qualifiers: Hypertension type: essential hypertension Qualified Code(s): I10 - Essential (primary) hypertension - Initial Treatment Plan Initial Treatment Plan: 1) Continue Seroquel 200 mg po HS ordered by Dr Jack. 2 ) Continue inpatient detoxification
--- NOTE | 2019-07-07 14:52 | PN ---
[facility] Progress Note Note: pt was c/o of not being able to eat because she feels nausea. pt was advised that anti-nausea medication is ordered and to give it time for it to take affect. Pt in agreement pt was advised that if this approach does not work we can send her out to our main hospital at [facility] ED for evaluation and or IV fluids. Pt agreed and will advise RN if she is willing to go. will continue to monitor.
[2019-07-07] MEDS: THIAMINE HCL 100 MG TABLET (FP) PO SCH (23:27)
[2019-07-08] MEDS: ALBUTEROL SO4 8 GM HFA INHALER IH PRN (06:08)
[2019-07-08] MEDS: ALBUTEROL SO4 2.5/IPRATROPIUM 0.5 INH SOL 3 ML VIAL.NEB. NEB SCH ×2 (06:34→10:51)
[2019-07-08] MEDS: chlordiazePOXIDE HCL 25 MG CAPSULE PO SCH ×2 (07:59→10:16)
[2019-07-08] MEDS: METOCLOPRAMIDE HCL 10 MG TABLET (FP) PO SCH ×2 (08:28→10:52)
[2019-07-08 09:38] VITALS: BP 91/74; PULSE 120; TEMP 96.8
[2019-07-08] MEDS: MULTIVITAMINS (DAILY MVI) TABLET (FP) PO SCH (10:16)
[2019-07-08] MEDS: ELVITEG/COB/EMTRI/TENOF (GENVOYA) TABLET (NF) PO SCH (10:16)
[2019-07-08] MEDS: LOSARTAN 50MG/HCTZ 12.5MG 1 TAB (FP) PO SCH (10:16)
[2019-07-08] MEDS: ASPIRIN COATED 81 MG TABLET.EC PO SCH (10:16)
[2019-07-08] MEDS: NICOTINE 14 MG/24 HOURS TOPICAL PATCH TD SCH (10:16)
--- NOTE | 2019-07-08 12:17 | PN ---
[facility] Progress Note Note: pt was admitted in withdrawals and today pt continue to c/o of withdrawals s/s and aggressive symptomatic management attempted however, pt in spite of motivational counseling regarding the risk of relapse, seizures, DT's and or loss, pt chose to sign out AMA.
--- NOTE | 2019-07-08 12:21 | DS ---
[facility] Detox Discharge Summary Admission Date: 07/06/19 - History Present History: Alcohol Dependence, Cannabis Dependence - Physical Exam Results Vital Signs: Vital Signs Temperature 96.8 F L 07/08/19 09:37 Pulse Rate 120 H 07/08/19 09:37 Respiratory Rate 20 07/08/19 09:37 Blood Pressure 91/74 07/08/19 09:37 O2 Sat by Pulse Oximetry (%) Pertinent Admission Physical Exam Findings: pt arrived in withdrawals Laboratory Tests 07/06/19 07/06/19 07/06/19 11:17 12:15 12:15 WBC 3.7 L RBC 4.07 Hgb 14.0 Hct 41.5 MCV 101.8 H MCH 34.3 H MCHC 33.6 RDW 12.4 Plt Count 220 MPV 8.7 Sodium 134 L Potassium 4.0 Chloride 96 L Carbon Dioxide 20 L Anion Gap 18 H BUN 10.4 Creatinine 0.8 Est GFR (CKD-EPI)AfAm 103.92 Est GFR (CKD-EPI)NonAf 89.66 Random Glucose 65 L Calcium 9.1 Total Bilirubin 0.7 AST 78 H ALT 50 Alkaline Phosphatase 120 H Total Protein 9.4 H Albumin 4.4 POC Urine HCG, Qual Negative RPR Titer 07/06/19 12:15 WBC RBC Hgb Hct MCV MCH MCHC RDW Plt Count MPV Sodium Potassium Chloride Carbon Dioxide Anion Gap BUN Creatinine Est GFR (CKD-EPI)AfAm Est GFR (CKD-EPI)NonAf Random Glucose Calcium Total Bilirubin AST ALT Alkaline Phosphatase Total Protein Albumin POC Urine HCG, Qual RPR Titer Nonreactive today pt is aaox3 irritable and wants to leave A. pt signed out regardless of risk of relapse. - Treatment Patient has Accepted a Rehab Referral to: referral provided - Medication Discharge Medications: Ambulatory Orders Albuterol Sulfate Inhaler - [Ventolin HFA Inhaler -] 2 inh IH Q4H PRN #1 inh 11/28 Losartan/Hydrochlorothiazide [Losartan-Hctz 50-12.5 mg Tab] 1 each PO DAILY Elviteg/Cob/Emtri/Tenof Alafen [Genvoya Tablet] 1 each PO DAILY 09/20/18 Quetiapine Fumarate [Seroquel -] 200 mg PO HS #30 tab 11/02/18 Aspirin [Aspirin EC] 81 mg PO DAILY 07/06/19 Multivitamin [Multiple Vitamins] 1 each PO DAILY 07/06/19 - Diagnosis (1) Alcohol dependence with uncomplicated intoxication Status: Chronic (2) Cannabis dependence Status: Chronic (3) Drug-induced mood disorder Status: Chronic (4) Substance induced mood disorder Status: Chronic (5) Substance-induced sleep disorder Status: Acute (6) Thrush, oral Status: Chronic (7) Weight loss Status: Acute (8) Asthma Status: Chronic Qualifiers: Asthma severity: mild Asthma persistence: unspecified Asthma complication type: uncomplicated Qualified Code(s): J45.909 - Unspecified asthma, uncomplicated (9) Bipolar disorder Status: Chronic (10) Depression Status: Chronic (11) HIV (human immunodeficiency virus infection) Status: Chronic Qualifiers: HIV symptom status: unspecified Qualified Code(s): B20 - Human immunodeficiency virus [HIV] disease (12) History of bipolar disorder Status: Chronic (13) Insomnia Status: Chronic (14) Nicotine dependence Status: Chronic Qualifiers: Nicotine product type: cigarettes Substance use status: uncomplicated Qualified Code(s): F17.210 - Nicotine dependence, cigarettes, uncomplicated (15) Substance induced mood disorder Status: Chronic - AMA Did Patient Leave Against Medical Advice: Yes
[2019-07-09] MEDS ORDERED: chlordiazePOXIDE HCL 10 MG CAPSULE PO PRN
[2019-07-09] MEDS ORDERED: chlordiazePOXIDE HCL 10 MG CAPSULE PO SCH (05:00)
[2019-07-10] MEDS ORDERED: chlordiazePOXIDE HCL 10 MG CAPSULE PO SCH (05:00)
[2019-07-11] MEDS ORDERED: chlordiazePOXIDE HCL 10 MG CAPSULE PO ONE (05:00)
== END 2019-07-08 11:50 | disposition left against medical advice (07) | DRG 770 ==
LOC: YASAS 09:38 → Y6N 11:39
PROVIDERS: ADMIT Surgery; ATTEND Surgery
PROC: HZ2ZZZZ Detoxification Services for Substance Abuse Treatment (ICD-10-PCS; principal; 2019-07-06)
DX: F10.230 Alcohol dependence with withdrawal, uncomplicated (principal); F12.20 Cannabis dependence, uncomplicated; F17.210 Nicotine dependence, cigarettes, uncomplicated; F19.24 Other psychoactive substance dependence with psychoactive substance-induced mood disorder; F19.282 Other psychoactive substance dependence with psychoactive substance-induced sleep disorder; F31.9 Bipolar disorder, unspecified; I10 Essential (primary) hypertension; B20 Human immunodeficiency virus [HIV] disease; B37.0 Candidal stomatitis; R63.4 Abnormal weight loss; G47.00 Insomnia, unspecified; J45.909 Unspecified asthma, uncomplicated; Z91.14 Patient's other noncompliance with medication regimen; Z91.010 Allergy to peanuts; Z91.018 Allergy to other foods
CPT/HCPCS: 36415; 80053; 81025; 85027; 86593; 94640; G0008; Q0162; Q2036

== ENCOUNTER 2019-10-24 10:48 | Inpatient (IN) | payer OTHER ==
[2019-10-24 11:06] VITALS: BMI 18.8
--- NOTE | 2019-10-24 12:19 | HP ---
CIWA Score Nausea/Vomitin-No Nausea/No Vomiting Muscle Tremors: 1-None Visible, but Dietrich Anxiety: 0-No Anxiety, at Ease Agitation: 0-Normal Activity Paroxysmal Sweats: No Perspiration Orientation: 0-Oriented Tacttile Disturbances: 0-None Auditory Disturbances: 0-None Visual Disturbances: 0-None Headache: 0-None Present CIWA-Ar Total Score: 1 - Admission Criteria OASAS Guidelines: Admission for Medically Managed Detox: Requires at least one of the followin. CIWA greater than 12 2. Seizures within the past 24 hours 3. Delirium tremens within the past 24 hours 4. Hallucinations within the past 24 hours 5. Acute intervention needed for co occurring medical disorder 6. Acute intervention needed for co occurring psychiatric disorder 7. Severe withdrawal that cannot be handled at a lower level of care (continued vomiting, continued diarrhea, abnormal vital signs) requiring intravenous medication and/or fluids 8. Admitting History and Physical - Admission Chief Complaint: "I need to clean myself out. Tired of doing the same things over and over again." History of Present Illness: 43yr old female with a history of alcohol dependence seeking detox for treatment. She denies withdrawal seizures. She has blackouts, but not recently (2014) She is currently 3-4 24 oz cans of beer daily, and then 1/2 pint vodka on the weekend. She plans to detox and then rehab and initiate Vivitrol while in rehab. Last admission was 02/2019 and she remained abstinent for 2-3 months and relapsed. At that time she was initiated on naltrexone orally but did not follow up with vivitrol while in [facility] program. Patient smokes 2-3 blunts of marijuana daily. PMH: HTN, Asthma, HIV disease Psych: Bipolar Depression. History Source: Patient Limitations to Obtaining History: No Limitations - Past Medical History Cardiovascular: Yes: HTN Pulmonary: Yes: Asthma ...LMP: 01/24/18 Psych: Yes: Bipolar, Depression - Past Surgical History Past Surgical History: Yes: None - Advance Directives Advance Directives: No: Living Will, Health Care Proxy, DNR - Smoking History Smoking history: Current every day smoker Have you smoked in the past 12 months: Yes Aproximately how many cigarettes per day: 10 - Alcohol/Substance Use Hx Alcohol Use: Yes (3-4 beers per day) Number of Drinks Daily: 4 History of Substance Use: reports: Marijuana - Social History Usual Living Arrangement: Yes: Alone Do you think of yourself as: Straight/Heterosexual ADL: Independent Occupation: unemployed History of Recent Travel: No Admission ROS [facility] Allergies/Adverse Reactions: Allergies Allergy/AdvReac Type Severity Reaction Status Date / Time apple Allergy Severe Difficulty Verified 10/24/19 10:59 Breathing peanut Allergy Severe Difficulty Verified 10/24/19 10:59 Breathing No Known Drug Allergies Allergy Verified 10/24/19 10:59 Exam Limitations: No Limitations - Ebola screening Have you traveled outside of the country in the last 21 days: No Have you had contact with anyone from an Ebola affected area: No Have you been sick,other than usual withdrawal symptoms: No Do you have a fever: No - Review of Systems Constitutional: Chills, Diaphoresis, Unexplained wgt Loss EENT: reports: No Symptoms Reported Respiratory: reports: No Symptoms reported Cardiac: reports: No Symptoms Reported, Chest Tightness GI: reports: No Symptoms Reported, Abdominal cramping Musculoskeletal: reports: No Symptoms Reported Integumentary: reports: No Symptoms Reported Neuro: reports: No Symptoms reported Endocrine: reports: No Symptoms Reported Hematology: reports: No Symptoms Reported Psychiatric: reports: Judgement Intact, Mood/Affect Appropiate, Orientated x3 Other Systems: Reviewed and Negative Patient History - Patient Medical History Hx Anemia: No Hx Asthma: Yes (on albuterol inhaler) Hx Chronic Obstructive Pulmonary Disease (COPD): No Hx Cancer: No Hx Cardiac Disorders: No Hx Congestive Heart Failure: No Hx Hypertension: Yes (losartan and asprin) Hx Hypercholesterolemia: No Hx Pacemaker: No HX Cerebrovascular Accident: No Hx Seizures: No Hx Dementia: No Hx Diabetes: No Hx Gastrointestinal Disorders: No Hx Liver Disease: No Hx Genitourinary Disorders: No Hx Sexually Transmitted Disorders: No Hx Renal Disease (ESRD): No Hx Thyroid Disease: No Hx Human Immunodeficiency Virus (HIV): Yes (SINCE 2005, NO FIGUEROA MEDS,CD4+ less than 200 = AIDS,thrush.) Hx Hepatitis C: No Hx Depression: Yes Hx Suicide Attempt: No Hx Bipolar Disorder: Yes Hx Schizophrenia: No - Patient Surgical History Past Surgical History: No Hx Neurologic Surgery: No Hx Cataract Extraction: No Hx Cardiac Surgery: No Hx Lung Surgery: No Hx Breast Surgery: No Hx Breast Biopsy: No Hx Abdominal Surgery: No Hx Appendectomy: No Hx Cholecystectomy: No Hx Genitourinary Surgery: No Hx Section: No Hx Orthopedic Surgery: No Anesthesia Reaction: No - PPD History Date: 09/22/18 Results: 0 mm - Reproductive History Last Menstrual Period: 01/24/18 - Smoking Cessation Smoking history: Current every day smoker Have you smoked in the past 12 months: Yes Aproximately how many cigarettes per day: 10 Cigars Per Day: 0 Hx Chewing Tobacco Use: No Initiated information on smoking cessation: Yes 'Breaking Loose' booklet given: 10/24/19 - Substances abused Alcohol Substance route: Oral Frequency: Daily Amount used: 6 pk of beer Age of first use: 21 Date of last use: 10/24/19 Marijuana/Hashish Substance route: Smoking Frequency: Daily Amount used: 2 joints Age of first use: 15 Date of last use: 10/24/19 Admission Physical Exam [facility] - Vital Signs Vital Signs: Vital Signs - 24 hr 10/24/19 10:58 Temperature 98.5 F Pulse Rate 95 H Respiratory 16 Rate Blood Pressure 154/97 - Physical General Appearance: Yes: Mild Distress, Alcohol on Breath, Tremorous, Irritable , Sweating, Anxious HEENTM: Yes: EOMI, Hearing grossly Normal, Normal ENT Inspection, Normocephalic , Normal Voice, IKE, Pharynx Normal, Tm's normal, Other (some thrush lateral aspects of tongue) Respiratory: Yes: Chest Non-Tender, Lungs Clear, Normal Breath Sounds, No Respiratory Distress, No Accessory Muscle Use Neck: Yes: No masses,lesions,Nodules, Supple, Trachea in good position Breast: Yes: Within Normal Limits Cardiology: Yes: Regular Rhythm, Regular Rate, S1, S2 Abdominal: Yes: Normal Bowel Sounds, Non Tender, Flat Genitourinary: Yes: Within Normal Limits Back: Yes: Normal Inspection Musculoskeletal: Yes: full range of Motion, Gait Steady, Pelvis Stable Extremities: Yes: Normal Capillary Refill, Normal Inspection, Normal Range of Motion, Non-Tender Neurological: 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: 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 intact, Fully Oriented, Alert, Motor Strength 5/5, Normal Mood/Affect, Normal Response Integumentary: Yes: Normal Color, Warm Lymphatic: Yes: Within Normal Limits - Diagnostic (1) Weight loss Current Visit: Yes Status: Acute (2) Alcohol dependence with uncomplicated intoxication Current Visit: Yes Status: Chronic (3) Asthma Current Visit: Yes Status: Chronic Qualifiers: Asthma severity: mild Asthma persistence: unspecified Asthma complication type: uncomplicated Qualified Code(s): J45.909 - Unspecified asthma, uncomplicated (4) Bipolar disorder Current Visit: Yes Status: Chronic (5) Cannabis dependence Current Visit: Yes Status: Chronic (6) Depression Current Visit: Yes Status: Chronic (7) HIV (human immunodeficiency virus infection) Current Visit: Yes Status: Chronic Qualifiers: HIV symptom status: unspecified Qualified Code(s): B20 - Human immunodeficiency virus [HIV] disease (8) Nicotine dependence Current Visit: Yes Status: Chronic Qualifiers: Nicotine product type: cigarettes Substance use status: uncomplicated Qualified Code(s): F17.210 - Nicotine dependence, cigarettes, uncomplicated (9) Thrush, oral Current Visit: Yes Status: Chronic Screened but not Admitted - Documentation of Visit Screened but not Admitted: No Breathalyzer - Breathalyzer Breathalyzer: 0.079 Urine Drug Screen - Test Device Lot number: [id number] Expiration date: 11/11/20 - Control Is test valid?: Yes - Results Drug screen NEGATIVE: No Urine drug screen results: THC-Marijuana Inpatient Rehab Admission - Rehab Decision to Admit Inpatient rehab admission?: No
[2019-10-24] MEDS ORDERED: chlordiazePOXIDE HCL 25 MG CAPSULE PO PRN (12:26)
[2019-10-24] MEDS ORDERED: MENTHOL/PHENOL 1 EACH UD MM PRN (12:26)
[2019-10-24] MEDS ORDERED: ACETAMINOPHEN 325 MG TABLET (FP) PO PRN ×2 (12:26)
[2019-10-24] MEDS ORDERED: MELATONIN 5 MG TABLETS PO PRN (12:26)
[2019-10-24] MEDS ORDERED: BISMUTH SUBSALICYLATE 262 MG/15 ML BTL PO PRN (12:26)
[2019-10-24] MEDS ORDERED: METHOCARBAMOL 500 MG TABLET PO PRN (12:26)
[2019-10-24] MEDS ORDERED: hydrOXYzine PAMOATE 25 MG CAPSULE (FP) PO PRN (12:26)
[2019-10-24] MEDS ORDERED: IBUPROFEN 400 MG TABLET (FP) PO PRN (12:26)
[2019-10-24] MEDS ORDERED: MAGNESIUM HYDROX 2400MG/30ML ORAL SUSPENSION 30 ML CUP PO PRN (12:26)
[2019-10-24] MEDS ORDERED: MAG HYDROX/AL HYDROX/SIMETH 30 ML UNIT-DOSE CUP PO PRN (12:26)
[2019-10-24] MEDS ORDERED: MAGNESIUM CITRATE 300 ML BOTTLE PO PRN (12:26)
[2019-10-24] MEDS: ASPIRIN COATED 81 MG TABLET.EC PO SCH (14:41)
[2019-10-24] MEDS: QUEtiapine FUMARATE 25 MG TABLET PO SCH ×2 (14:42→22:34)
[2019-10-24] MEDS: chlordiazePOXIDE HCL 25 MG CAPSULE PO SCH ×3 (14:42→22:34)
[2019-10-24] MEDS: LOSARTAN 50MG/HCTZ 12.5MG 1 TAB PO SCH (14:44)
[2019-10-24 16:49] LABS: HEMATOCRIT 40.5 % (32.4-45.2); HEMOGLOBIN 13.5 GM/dL (10.7-15.3); MCHC 33.3 g/dl (32.0-36.0); MEAN PLT VOLUME 8.5 fl (7.5-11.1); PLATELET COUNT 240 K/MM3 (134-434); RBC 3.97 M/mm3 (3.60-5.2); RDW 12.6 % (11.6-15.6); WHITE BLOOD COUNT 3.6 K/mm3 (4.0-10.0)
[2019-10-24 17:02] LABS: ALBUMIN 3.9 g/dl (3.4-5.0); BILIRUBIN,TOTAL 0.3 mg/dL (0.2-1); BLOOD UREA NITROGEN 9.5 mg/dL (7-18); CALCIUM 8.7 mg/dL (8.5-10.1); CREATININE 0.7 mg/dL (0.55-1.3); TOT PROT 8.7 g/dl (6.4-8.2)
[2019-10-24] MEDS: QUEtiapine FUMARATE 200 MG TABLET PO SCH (22:34)
[2019-10-24] MEDS: THIAMINE HCL 100 MG TABLET (FP) PO SCH (22:34)
[2019-10-24] MEDS: ALBUTEROL SO4 HFA INHALER IH PRN (22:39)
[2019-10-25] MEDS: chlordiazePOXIDE HCL 25 MG CAPSULE PO SCH ×4 (06:18→22:10)
[2019-10-25] MEDS ORDERED: ELVITEG/COB/EMTRI/TENOF (GENVOYA) TABLET (NF) PO SCH (10:00)
[2019-10-25] MEDS: PRENATAL VITAMINS W/ FOLIC ACID TABLET (FP) PO SCH (10:03)
[2019-10-25] MEDS: ASPIRIN COATED 81 MG TABLET.EC PO SCH (10:03)
[2019-10-25] MEDS: LOSARTAN 50MG/HCTZ 12.5MG 1 TAB PO SCH (10:03)
[2019-10-25] MEDS: QUEtiapine FUMARATE 25 MG TABLET PO SCH (10:03)
[2019-10-25] MEDS: NICOTINE 14 MG/24 HOURS TOPICAL PATCH TD SCH (10:04)
--- NOTE | 2019-10-25 13:26 | PN ---
S CIWA - CIWA Score Nausea/Vomitin-Mild Nausea/No Vomiting Muscle Tremors: 3 Anxiety: 2 Agitation: 1-Slight > Activity Paroxysmal Sweats: 2 Orientation: 0-Oriented Tacttile Disturbances: 0-None Auditory Disturbances: 1-Very Mild Visual Disturbances: 1-Very Mild Sensitivity Headache: 1-Very Mild CIWA-Ar Total Score: 12 S Progress Note (SOAP) Subjective: 44 years old female admitted on 10/24/19 for alcohol withdrawal sx management treating with libirum detox regimen requests 10 am medication to be taking at 9 am aspirin genvoya losartan seroquel Objective: 10/25/19 13:31 Vital Signs Temperature 96.3 F L 10/25/19 13:18 Pulse Rate 116 H 10/25/19 13:18 Respiratory Rate 18 10/25/19 13:18 Blood Pressure 129/97 10/25/19 13:18 O2 Sat by Pulse Oximetry (%) Laboratory Last Values WBC 3.6 K/mm3 (4.0-10.0) L 10/24/19 13:00 RBC 3.97 M/mm3 (3.60-5.2) 10/24/19 13:00 Hgb 13.5 GM/dL (10.7-15.3) 10/24/19 13:00 Hct 40.5 % (32.4-45.2) 10/24/19 13:00 MCV 102.0 fl (80-96) H 10/24/19 13:00 MCH 34.0 pg (25.7-33.7) H 10/24/19 13:00 MCHC 33.3 g/dl (32.0-36.0) 10/24/19 13:00 RDW 12.6 % (11.6-15.6) 10/24/19 13:00 Plt Count 240 K/MM3 (134-434) 10/24/19 13:00 MPV 8.5 fl (7.5-11.1) 10/24/19 13:00 Sodium 137 mmol/L (136-145) 10/24/19 13:00 Potassium 4.0 mmol/L (3.5-5.1) 10/24/19 13:00 Chloride 106 mmol/L (98-107) 10/24/19 13:00 Carbon Dioxide 22 mmol/L (21-32) 10/24/19 13:00 Anion Gap 9 MMOL/L (8-16) 10/24/19 13:00 BUN 9.5 mg/dL (7-18) 10/24/19 13:00 Creatinine 0.7 mg/dL (0.55-1.3) 10/24/19 13:00 Est GFR (CKD-EPI)AfAm 122.13 10/24/19 13:00 Est GFR (CKD-EPI)NonAf 105.37 10/24/19 13:00 Random Glucose 71 mg/dL (74-106) L 10/24/19 13:00 Calcium 8.7 mg/dL (8.5-10.1) 10/24/19 13:00 Total Bilirubin 0.3 mg/dL (0.2-1) 10/24/19 13:00 AST 60 U/L (15-37) H 10/24/19 13:00 ALT 34 U/L (13-61) 10/24/19 13:00 Alkaline Phosphatase 129 U/L (45-117) H 10/24/19 13:00 Total Protein 8.7 g/dl (6.4-8.2) H 10/24/19 13:00 Albumin 3.9 g/dl (3.4-5.0) 10/24/19 13:00 POC Urine HCG, Qual Negative 10/24/19 12:19 RPR Titer Nonreactive (NONREACTIVE) 10/24/19 13:00 lab noted Assessment: 10/25/19 13:31 alcohol withdrawal Plan: librium regimen
--- NOTE | 2019-10-25 14:07 | CONSULT ---
[facility] Psychiatric Consult - Data Date of interview: 10/25/19 Admission source: [facility] Identifying data: Revisit to [facility] and admission to [address] [place] [address] for this 44 y/o AA female, self-referred for detoxification. MIGUEL issues : alcohol, cannabis, nicotine. Patient is single, a mother of two, domiciled, unemployed and supported on [facility] benefits. Substance Abuse History: Discussed with the patient. Details in current [facility] report as follows : Smoking history: Current every day smoker. Have you smoked in the past 12 months: Yes. Aproximately how many cigarettes per day: 10. Cigars Per Day: 0. Hx Chewing Tobacco Use: No. Initiated information on smoking cessation: Yes. 'Breaking Loose' booklet given: 10/24/19. - Substances abused. Alcohol. Substance route: Oral. Frequency: Daily. Amount used: 6 pk of beer. Age of first use: 21. Date of last use: 10/24/19. Marijuana/Hashish. Substance route: Smoking. Frequency: Daily. Amount used : 2 joints. Age of first use: 15. Date of last use: 10/24/19 Medical History: HIV infection since 2006 (non-compliant with ART medications), hypertension and bronchial asthma. Psychiatric History: Patient endorses a history of one psychiatric hospitalization (2013) at [facility]. Reportedly diagnosed with Bipolar Disorder. Ms Nieto used to be [facility]. She left [facility] for the [facility] clinic and received psychiatric care at that program until her defection in 2018. In the meantime, the patient has been getting scripts for seroquel + remeron throughout admissions to various detox/rehab facilities. She denies history of suicide attempts. Physical/Sexual Abuse/Trauma History: Patient denies. Additional Comment: Urine drug screen results: THC-Marijuana. Noted. Mental Status Exam - Mental Status Exam Alert and Oriented to: Time, Place, Person Cognitive Function: Good Patient Appearance: Well Groomed Mood: Nervous, Hopeful Affect: Mood Congruent, Constricted Patient Behavior: Fatigued, Appropriate, Cooperative Speech Pattern: Clear, Appropriate Voice Loudness: Normal Thought Process: Intact, Goal Oriented Thought Disorder: Not Present Hallucinations: Denies Suicidal Ideation: Denies Homicidal Ideation: Denies Insight/Judgement: Poor Sleep: Poorly, Difficulty falling asleep Appetite: Good Gait/Station: Normal Psychiatric Findings - Problem List ([place] 1, 2,3) (1) Alcohol use disorder Current Visit: Yes Status: Chronic (2) Cannabis dependence Current Visit: Yes Status: Chronic (3) Nicotine dependence Current Visit: Yes Status: Chronic Qualifiers: Nicotine product type: cigarettes Substance use status: uncomplicated Qualified Code(s): F17.210 - Nicotine dependence, cigarettes, uncomplicated (4) Substance induced mood disorder Current Visit: Yes Status: Chronic (5) History of bipolar disorder Current Visit: Yes Status: Chronic (6) Insomnia Current Visit: Yes Status: Chronic - Initial Treatment Plan Initial Treatment Plan: Psychoeducation. Sleep hygiene. Detoxification. Support. AA meetings. Medications : seroquel 25 mg po bid (at 9 am/1 pm) + 200 mg po hs. Side effects/benefits are discussed with the patient. Ms Nieto is in agreement with this plan of care. Observation.
[2019-10-25] MEDS ORDERED: QUEtiapine FUMARATE 25 MG TABLET PO ONE (14:32)
[2019-10-25] MEDS ORDERED: QUEtiapine FUMARATE 25 MG TABLET PO SCH ×2 (14:45→22:00)
[2019-10-25] MEDS: ALBUTEROL SO4 HFA INHALER IH PRN (15:49)
[2019-10-25] MEDS: QUEtiapine FUMARATE 200 MG TABLET PO SCH (22:10)
[2019-10-25] MEDS: THIAMINE HCL 100 MG TABLET (FP) PO SCH (22:12)
[2019-10-26] MEDS: chlordiazePOXIDE HCL 25 MG CAPSULE PO SCH ×4 (06:16→23:32)
[2019-10-26] MEDS: ASPIRIN COATED 81 MG TABLET.EC PO SCH (09:56)
[2019-10-26] MEDS: QUEtiapine FUMARATE 25 MG TABLET PO SCH ×2 (09:56→13:19)
[2019-10-26] MEDS: PRENATAL VITAMINS W/ FOLIC ACID TABLET (FP) PO SCH (09:56)
[2019-10-26] MEDS: ELVITEG/COB/EMTRI/TENOF (GENVOYA) TABLET (NF) PO SCH (09:56)
[2019-10-26] MEDS: NICOTINE 14 MG/24 HOURS TOPICAL PATCH TD SCH (09:58)
[2019-10-26] MEDS: LOSARTAN 50MG/HCTZ 12.5MG 1 TAB PO SCH (10:50)
--- NOTE | 2019-10-26 15:29 | PN ---
S CIWA - CIWA Score Nausea/Vomitin-Mild Nausea/No Vomiting Muscle Tremors: 1-None Visible, but [place] Anxiety: 1-Mildly Anxious Agitation: 0-Normal Activity Paroxysmal Sweats: 1-Minimal Palms Moist Orientation: 0-Oriented Tacttile Disturbances: 1-Very Mild Itch/Numbness Auditory Disturbances: 0-None Visual Disturbances: 0-None Headache: 0-None Present CIWA-Ar Total Score: 5 BHS Progress Note (SOAP) Subjective: i'm tired, my mouth is dry, sweats Objective: 10/26/19 15:25 Vital Signs Temperature 96.2 F L 10/26/19 13:14 Pulse Rate 124 H 10/26/19 13:14 Respiratory Rate 18 10/26/19 13:14 Blood Pressure 100/71 10/26/19 13:14 O2 Sat by Pulse Oximetry (%) Laboratory Tests 10/24/19 10/24/19 10/24/19 12:19 13:00 13:00 WBC 3.6 L RBC 3.97 Hgb 13.5 Hct 40.5 MCV 102.0 H MCH 34.0 H MCHC 33.3 RDW 12.6 Plt Count 240 MPV 8.5 Sodium 137 Potassium 4.0 Chloride 106 Carbon Dioxide 22 Anion Gap 9 BUN 9.5 Creatinine 0.7 Est GFR (CKD-EPI)AfAm 122.13 Est GFR (CKD-EPI)NonAf 105.37 Random Glucose 71 L Calcium 8.7 Total Bilirubin 0.3 AST 60 H ALT 34 Alkaline Phosphatase 129 H Total Protein 8.7 H Albumin 3.9 POC Urine HCG, Qual Negative RPR Titer 10/24/19 13:00 WBC RBC Hgb Hct MCV MCH MCHC RDW Plt Count MPV Sodium Potassium Chloride Carbon Dioxide Anion Gap BUN Creatinine Est GFR (CKD-EPI)AfAm Est GFR (CKD-EPI)NonAf Random Glucose Calcium Total Bilirubin AST ALT Alkaline Phosphatase Total Protein Albumin POC Urine HCG, Qual RPR Titer Nonreactive pt aox3 in nad ambulating well Assessment: 10/26/19 15:26 withdrawal sx's Plan: cont detox increase fluids
--- NOTE | 2019-10-26 18:44 | PN ---
BHS Progress Note Note: Asked to see the patient by nurse as her BP is low and MS high and she was not drinking water. Pt states she does not like water or juice, her preferred liquid is alcohol, coffee or milk. Vital Signs - 24 hr 10/25/19 10/26/19 10/26/19 20:27 00:30 03:30 Temperature 97.2 F L Pulse Rate 111 H Respiratory 16 18 18 Rate Blood Pressure 114/82 10/26/19 10/26/19 10/26/19 10:49 13:14 18:06 Temperature 97.8 F 96.2 F L 96.4 F L Pulse Rate 134 H 124 H 124 H Respiratory 18 18 16 Rate Blood Pressure 102/70 100/71 90/50 L 10/26/19 18:11 Temperature 96.4 F L Pulse Rate 106 H Respiratory 16 Rate Blood Pressure 90/50 L alert and oriented pt is ambulatory a/p AUD- encouraged to drink fluids-and use librium as needed
[2019-10-26] MEDS: THIAMINE HCL 100 MG TABLET (FP) PO SCH (23:32)
[2019-10-27] MEDS ORDERED: chlordiazePOXIDE HCL 10 MG CAPSULE PO PRN
[2019-10-27] MEDS ORDERED: chlordiazePOXIDE HCL 10 MG CAPSULE PO SCH (05:00)
[2019-10-27] MEDS: ALBUTEROL SO4 HFA INHALER IH PRN (05:42)
[2019-10-27 09:07] VITALS: BP 96/73; PULSE 113; TEMP 96.4
[2019-10-27] MEDS: ELVITEG/COB/EMTRI/TENOF (GENVOYA) TABLET (NF) PO SCH (10:17)
[2019-10-27] MEDS: ASPIRIN COATED 81 MG TABLET.EC PO SCH (10:17)
[2019-10-27] MEDS: PRENATAL VITAMINS W/ FOLIC ACID TABLET (FP) PO SCH (10:18)
[2019-10-27] MEDS: QUEtiapine FUMARATE 25 MG TABLET PO SCH (10:18)
[2019-10-27] MEDS: LOSARTAN 50MG/HCTZ 12.5MG 1 TAB PO SCH (10:18)
[2019-10-27] MEDS: NICOTINE 14 MG/24 HOURS TOPICAL PATCH TD SCH (10:21)
--- NOTE | 2019-10-27 12:07 | DS ---
[facility] Detox Discharge Summary Admission Date: 10/24/19 Discharge Date: 10/27/19 - History Present History: Alcohol Dependence Additional Comments: 44 years old female admitted on 10/24/19 for alcohol withdrawal sx management treated with librium regimen patient prefers to leave the detox unit today as per estimated discharge date of 10/29/19 patient is alert oriented x 3 case discussed with the nurse routine discharge is appropriated respiratory clear lungs bilaterally on auscultation extremities full range of motion skin warm and dry - Physical Exam Results Vital Signs: Vital Signs Temperature 96.4 F L 10/27/19 09:07 Pulse Rate 113 H 10/27/19 09:07 Respiratory Rate 10/27/19 09:07 Blood Pressure 96/73 10/27/19 09:07 O2 Sat by Pulse Oximetry (%) Pertinent Admission Physical Exam Findings: alcohol withdrawal Laboratory Last Values WBC 3.6 K/mm3 (4.0-10.0) L 10/24/19 13:00 RBC 3.97 M/mm3 (3.60-5.2) 10/24/19 13:00 Hgb 13.5 GM/dL (10.7-15.3) 10/24/19 13:00 Hct 40.5 % (32.4-45.2) 10/24/19 13:00 MCV 102.0 fl (80-96) H 10/24/19 13:00 MCH 34.0 pg (25.7-33.7) H 10/24/19 13:00 MCHC 33.3 g/dl (32.0-36.0) 10/24/19 13:00 RDW 12.6 % (11.6-15.6) 10/24/19 13:00 Plt Count 240 K/MM3 (134-434) 10/24/19 13:00 MPV 8.5 fl (7.5-11.1) 10/24/19 13:00 Sodium 137 mmol/L (136-145) 10/24/19 13:00 Potassium 4.0 mmol/L (3.5-5.1) 10/24/19 13:00 Chloride 106 mmol/L (98-107) 10/24/19 13:00 Carbon Dioxide 22 mmol/L (21-32) 10/24/19 13:00 Anion Gap 9 MMOL/L (8-16) 10/24/19 13:00 BUN 9.5 mg/dL (7-18) 10/24/19 13:00 Creatinine 0.7 mg/dL (0.55-1.3) 10/24/19 13:00 Est GFR (CKD-EPI)AfAm 122.13 10/24/19 13:00 Est GFR (CKD-EPI)NonAf 105.37 10/24/19 13:00 Random Glucose 71 mg/dL (74-106) L 10/24/19 13:00 Calcium 8.7 mg/dL (8.5-10.1) 10/24/19 13:00 Total Bilirubin 0.3 mg/dL (0.2-1) 10/24/19 13:00 AST 60 U/L (15-37) H 10/24/19 13:00 ALT 34 U/L (13-61) 10/24/19 13:00 Alkaline Phosphatase 129 U/L (45-117) H 10/24/19 13:00 Total Protein 8.7 g/dl (6.4-8.2) H 10/24/19 13:00 Albumin 3.9 g/dl (3.4-5.0) 10/24/19 13:00 POC Urine HCG, Qual Negative 10/24/19 12:19 RPR Titer Nonreactive (NONREACTIVE) 10/24/19 13:00 lab noted - Treatment Hospital Course: Detox Protocol Followed, Detoxed Safely, Responded well, Discharged Condition Good, Rehab Referral Accepted Patient has Accepted a Rehab Referral to: [facility] - Medication Discharge Medications: Ambulatory Orders Albuterol Sulfate Inhaler - [Ventolin HFA Inhaler -] 2 inh IH Q4H PRN #1 inh 11/28 Losartan/Hydrochlorothiazide [Losartan-Hctz 50-12.5 mg Tab] 1 each PO DAILY Elviteg/Cob/Emtri/Tenof Alafen [Genvoya Tablet] 1 each PO DAILY 09/20/18 Quetiapine Fumarate [Seroquel -] 200 mg PO HS #30 tab 11/02/18 Aspirin [Aspirin EC] 81 mg PO DAILY 07/06/19 Multivitamin [Multiple Vitamins] 1 each PO DAILY 07/06/19 Quetiapine Fumarate [Seroquel -] 25 mg PO BID 10/24/19 - Diagnosis (1) Alcohol dependence with uncomplicated intoxication Status: Acute (2) Asthma Status: Chronic Qualifiers: Asthma severity: mild Asthma persistence: intermittent Asthma complication type: with status asthmaticus Qualified Code(s): J45.22 - Mild intermittent asthma with status asthmaticus (3) HIV (human immunodeficiency virus infection) Status: Chronic Qualifiers: HIV symptom status: asymptomatic Qualified Code(s): Z21 - Asymptomatic human immunodeficiency virus [HIV] infection status (4) Nicotine dependence Status: Acute Qualifiers: Nicotine product type: cigarettes Substance use status: in withdrawal Qualified Code(s): F17.213 - Nicotine dependence, cigarettes, with withdrawal (5) Substance induced mood disorder Status: Suspected - AMA Did Patient Leave Against Medical Advice: No CIWA Score - CIWA Score Nausea/Vomitin-No Nausea/No Vomiting Muscle Tremors: 1-None Visible, but [place] Anxiety: 0-No Anxiety, at Ease Agitation: 0-Normal Activity Paroxysmal Sweats: No Perspiration Orientation: 0-Oriented Tacttile Disturbances: 0-None Auditory Disturbances: 0-None Visual Disturbances: 0-None Headache: 0-None Present CIWA-Ar Total Score: 1
[2019-10-28] MEDS ORDERED: chlordiazePOXIDE HCL 10 MG CAPSULE PO SCH (05:00)
[2019-10-29] MEDS ORDERED: chlordiazePOXIDE HCL 10 MG CAPSULE PO ONE (05:00)
== END 2019-10-27 12:04 | disposition home or self-care (01) | DRG 775 ==
LOC: YASAS 10:48 → Y3N 13:05
PROVIDERS: ADMIT Allergy & Immunology; ATTEND Allergy & Immunology
PROC: HZ2ZZZZ Detoxification Services for Substance Abuse Treatment (ICD-10-PCS; principal; 2019-10-24)
DX: F10.230 Alcohol dependence with withdrawal, uncomplicated (principal); F12.20 Cannabis dependence, uncomplicated; F17.210 Nicotine dependence, cigarettes, uncomplicated; F31.9 Bipolar disorder, unspecified; F41.9 Anxiety disorder, unspecified; B20 Human immunodeficiency virus [HIV] disease; B37.0 Candidal stomatitis; I10 Essential (primary) hypertension; J45.22 Mild intermittent asthma with status asthmaticus; G47.00 Insomnia, unspecified; R63.4 Abnormal weight loss; Z68.1 Body mass index [BMI] 19.9 or less, adult; Z91.010 Allergy to peanuts; Z91.018 Allergy to other foods
CPT/HCPCS: 36415; 80053; 81025; 85027; 86593

== ENCOUNTER 2020-06-01 10:13 | Inpatient (IN) | payer OTHER ==
--- NOTE | 2020-06-01 10:40 | BHS.RME ---
Substance Use & Tx History - Substance Use History Alcohol Substance amount: 1/2 pint vodka +3 beers 25 oz Frequency of use: Daily Substance route: Oral Date of Last Use: 06/01/20 Marijuana/Hashish Substance amount: 4 blunts Frequency of use: Daily Substance route: Oral Date of Last Use: 06/01/20 Nicotine Substance amount: 1/2 pack Frequency of use: Daily Substance route: Smoking Date of Last Use: 06/01/20 - Last Treatment Date of last treatment: 10/2019 Treatment type: Substance Use Disorder (MIGUEL) Where was last treatment: Detox Physical/Psych/Mental Status - Behavior General Behavior: Increased activity (restlessness, agitation) Eye Contact: Normal - Cooperativeness Cooperativeness: Cooperative - Thinking Thought Processes: Tight, Logical, Goal Directed Thought content: Future oriented - Physical Health Problems Is patient presently having any pain?: No Does patient presently have any injuries (include location): No Does patient currently have a fever: No Is patient : No CIWA Nausea/Vomitin-No Nausea/No Vomiting Muscle Tremors: 2 Anxiety: 3 Agitation: 3 Paroxysmal Sweats: 1-Minimal Palms Moist Orientation: 1-Uncertain about Date Tacttile Disturbances: 0-None Auditory Disturbances: 0-None Visual Disturbances: 0-None Headache: 0-None Present CIWA-Ar Total Score: 10
[2020-06-01 11:38] VITALS: BMI 18.1
--- NOTE | 2020-06-01 12:10 | HP ---
CIWA Score Nausea/Vomitin-No Nausea/No Vomiting Muscle Tremors: 2 Anxiety: 3 Agitation: 3 Paroxysmal Sweats: 1-Minimal Palms Moist Orientation: 1-Uncertain about Date Tacttile Disturbances: 0-None Auditory Disturbances: 0-None Visual Disturbances: 0-None Headache: 0-None Present CIWA-Ar Total Score: 10 - Admission Criteria OASAS Guidelines: Admission for Medically Managed Detox: Requires at least one of the followin. CIWA greater than 12 2. Seizures within the past 24 hours 3. Delirium tremens within the past 24 hours 4. Hallucinations within the past 24 hours 5. Acute intervention needed for co occurring medical disorder 6. Acute intervention needed for co occurring psychiatric disorder 7. Severe withdrawal that cannot be handled at a lower level of care (continued vomiting, continued diarrhea, abnormal vital signs) requiring intravenous medication and/or fluids 8. Admitting History and Physical - Admission Chief Complaint: "I am done and I just turned 45 and I need to get it together." History of Present Illness: 45 year old female with history of alcohol dependence with withdrawals, She was last here in 10/2019 and left AMA because she wasn't really doing it for herself. She is really serious about completing detox now. She will sign behavioral contract that states she will complete treatment this time. 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 GRACIA=0.190 CIWA=10 not yet in withdrawals as she just drank before coming in for admission Urine Tox: + THC Patient meets criteria for detox as she has multiple medical and psychiatric co- morbidities. History Source: Patient Limitations to Obtaining History: No Limitations - Past Medical History Cardiovascular: Yes: HTN Pulmonary: Yes: Asthma ...LMP: 01/24/18 Psych: Yes: Bipolar, Depression - Past Surgical History Past Surgical History: Yes: None - Smoking History Smoking history: Current every day smoker Have you smoked in the past 12 months: Yes Aproximately how many cigarettes per day: 10 - Alcohol/Substance Use Hx Alcohol Use: Yes (3-4 beers per day) Number of Drinks Daily: 4 History of Substance Use: reports: Marijuana - Social History Usual Living Arrangement: Yes: Alone Do you think of yourself as: Straight/Heterosexual ADL: Independent Occupation: unemployed History of Recent Travel: No Admission ROS S - HPI Allergies/Adverse Reactions: Allergies Allergy/AdvReac Type Severity Reaction Status Date / Time apple Allergy Severe Difficulty Verified 06/01/20 11:31 Breathing peanut Allergy Severe Difficulty Verified 06/01/20 11:31 Breathing No Known Drug Allergies Allergy Verified 06/01/20 11:31 Exam Limitations: No Limitations - Ebola screening Have you traveled outside of the country in the last 21 days: No Have you had contact with anyone from an Ebola affected area: No Have you been sick,other than usual withdrawal symptoms: No Do you have a fever: No - Review of Systems Constitutional: Chills, Unintentional Wgt. Loss EENT: reports: No Symptoms Reported Respiratory: reports: No Symptoms reported Cardiac: reports: No Symptoms Reported GI: reports: No Symptoms Reported : reports: No Symptoms Reported Musculoskeletal: reports: No Symptoms Reported Integumentary: reports: No Symptoms Reported Neuro: reports: No Symptoms reported Endocrine: reports: No Symptoms Reported Hematology: reports: No Symptoms Reported Psychiatric: reports: Judgement Intact, Orientated x3, Agitated, Anxious Other Systems: Reviewed and Negative Patient History - Patient Medical History Hx Anemia: No Hx Asthma: Yes (PUMPS) Hx Chronic Obstructive Pulmonary Disease (COPD): No Hx Cancer: No Hx Cardiac Disorders: No Hx Congestive Heart Failure: No Hx Hypertension: Yes Hx Hypercholesterolemia: No Hx Pacemaker: No HX Cerebrovascular Accident: No Hx Seizures: No Hx Dementia: No Hx Diabetes: No Hx Gastrointestinal Disorders: No Hx Liver Disease: No Hx Genitourinary Disorders: No Hx Sexually Transmitted Disorders: No Hx Renal Disease (ESRD): No Hx Thyroid Disease: No Hx Human Immunodeficiency Virus (HIV): Yes (SINCE 2005, NO FIGUEROA MEDS,CD4+ less than 200 = AIDS,thrush.) Hx Hepatitis C: No Hx Depression: Yes Hx Suicide Attempt: No Hx Bipolar Disorder: Yes Hx Schizophrenia: No - Patient Surgical History Past Surgical History: No Hx Neurologic Surgery: No Hx Cataract Extraction: No Hx Cardiac Surgery: No Hx Lung Surgery: No Hx Breast Surgery: No Hx Breast Biopsy: No Hx Abdominal Surgery: No Hx Appendectomy: No Hx Cholecystectomy: No Hx Genitourinary Surgery: No Hx Section: No Hx Orthopedic Surgery: No Anesthesia Reaction: No - PPD History Previous Implant?: Yes Documented Results: Negative w/proof Implanted On Prior [facility] Admission?: Yes Date: 09/22/18 Results: 0mm PPD to be Administered?: Yes - Reproductive History Last Menstrual Period: 01/24/18 - Smoking Cessation Smoking history: Current every day smoker Have you smoked in the past 12 months: Yes Aproximately how many cigarettes per day: 10 Cigars Per Day: 0 Hx Chewing Tobacco Use: No Initiated information on smoking cessation: No - Substances abused Alcohol Substance route: Oral Frequency: Daily Amount used: HALF PINT VODKA 3 BEERS 25OZ Age of first use: 21 Date of last use: 06/01/20 Marijuana/Hashish Substance route: Smoking Frequency: Daily Amount used: 4 BLUNTS Age of first use: 15 Date of last use: 06/01/20 Admission Physical Exam BHS - Vital Signs Vital Signs: Vital Signs - 24 hr 06/01/20 06/01/20 11:34 11:47 Temperature 98.0 F 98.0 F Pulse Rate 100 H 100 H Respiratory 18 18 Rate Blood Pressure 142/101 H 142/101 H - Physical General Appearance: Yes: Thin, Irritable, Sweating, Anxious HEENTM: Yes: EOMI, Hearing grossly Normal, Normal ENT Inspection, Normocephalic, Normal Voice, IKE, Pharynx Normal, Tm's normal Respiratory: Yes: Chest Non-Tender, Lungs Clear, Normal Breath Sounds, No Respiratory Distress, No Accessory Muscle Use Neck: Yes: No masses,lesions,Nodules, Supple, Trachea in good position Breast: Yes: Breast Exam Deferred Cardiology: Yes: Regular Rhythm, Regular Rate, S1, S2 Abdominal: Yes: Non Tender, Flat, Soft, Increased Bowel Sounds Genitourinary: Yes: Within Normal Limits Back: Yes: Normal Inspection Musculoskeletal: Yes: full range of Motion, Gait Steady, Pelvis Stable Extremities: Yes: Normal Capillary Refill, Normal Inspection Neurological: Yes: Within Normal Limits, jig filler II-XII NML intact, Fully Oriented, Alert, Motor Strength 5/5, Normal Mood/Affect, Normal Response Integumentary: Yes: Normal Color, Dry, Warm Lymphatic: Yes: Within Normal Limits - Diagnostic (1) Alcohol dependence with uncomplicated intoxication Current Visit: Yes Status: Acute (2) Nicotine dependence Current Visit: Yes Status: Acute Qualifiers: Nicotine product type: cigarettes Substance use status: in withdrawal Qualified Code(s): F17.213 - Nicotine dependence, cigarettes, with withdrawal (3) Substance-induced sleep disorder Current Visit: Yes Status: Acute (4) Weight loss Current Visit: Yes Status: Acute (5) Asthma Current Visit: Yes Status: Chronic Qualifiers: Asthma severity: mild Asthma persistence: intermittent Asthma complication type: with status asthmaticus Qualified Code(s): J45.22 - Mild intermittent asthma with status asthmaticus (6) Bipolar disorder Current Visit: Yes Status: Chronic (7) Cannabis dependence Current Visit: Yes Status: Chronic (8) HIV (human immunodeficiency virus infection) Current Visit: Yes Status: Chronic Qualifiers: HIV symptom status: asymptomatic Qualified Code(s): Z21 - Asymptomatic human immunodeficiency virus [HIV] infection status (9) Insomnia Current Visit: Yes Status: Chronic Cleared for Admission S - Detox or Rehab [facility] Level of Care: Medically Managed Detox Regimen/Protocol: Librium Claeared for Rehab Admission: No Screened but not Admitted - Documentation of Visit Screened but not Admitted: No Breathalyzer - Breathalyzer Breathalyzer: 0.190 Vital Signs - Vital Signs Vital signs refused: No Temperature: 98.0 F Temperature source: Oral Pulse Rate: 100 Respiratory Rate: 18 Blood Pressure: 142/101 BP Location: Left Arm Blood Pressure position: Sitting - Height Height: 5 ft 4 in - Weight Weight: 106 lb Weight measurement method: Standing scale - BMI Body Mass Index (BMI): 18.1 - Bowel Function Bowel Movement: No Urine Drug Screen - Test Device Lot number: [id number] Expiration date: 01/17/22 - Control Is test valid?: Yes - Results Drug screen NEGATIVE: No Urine drug screen results: THC-Marijuana Inpatient Rehab Admission - Rehab Decision to Admit Inpatient rehab admission?: No
[2020-06-01] MEDS ORDERED: MAG HYDROX/AL HYDROX/SIMETH 30 ML UNIT-DOSE CUP PO PRN (12:17)
[2020-06-01] MEDS ORDERED: MAGNESIUM CITRATE 300 ML BOTTLE PO PRN (12:17)
[2020-06-01] MEDS ORDERED: chlordiazePOXIDE HCL 25 MG CAPSULE PO PRN (12:17)
[2020-06-01] MEDS ORDERED: IBUPROFEN 400 MG TABLET (FP) PO PRN (12:17)
[2020-06-01] MEDS ORDERED: ACETAMINOPHEN 325 MG TABLET (FP) PO PRN ×2 (12:17)
[2020-06-01] MEDS ORDERED: NICOTINE POLACRILEX 2 MG GUM BUC PRN (12:17)
[2020-06-01] MEDS ORDERED: METHOCARBAMOL 500 MG TABLET PO PRN (12:17)
[2020-06-01] MEDS ORDERED: MAGNESIUM HYDROX 2400MG/30ML ORAL SUSPENSION 30 ML CUP PO PRN (12:17)
[2020-06-01] MEDS ORDERED: MENTHOL/PHENOL 1 EACH UD MM PRN (12:17)
[2020-06-01] MEDS ORDERED: BISMUTH SUBSALICYLATE 524 MG/30 ML UD PO PRN (12:17)
[2020-06-01] MEDS ORDERED: ONDANSETRON *ODT* 4 MG TABLET SL ONE (14:00)
[2020-06-01] MEDS ORDERED: NICOTINE 7 MG/24 HOURS TOPICAL PATCH TD SCH (14:00)
[2020-06-01] MEDS: hydrOXYzine PAMOATE 25 MG CAPSULE (FP) PO SCH ×3 (14:05→22:04)
[2020-06-01] MEDS: chlordiazePOXIDE HCL 25 MG CAPSULE PO SCH ×3 (14:05→22:04)
[2020-06-01] MEDS: PRENATAL VITAMINS W/ FOLIC ACID TABLET (FP) PO SCH (14:09)
[2020-06-01 14:59] LABS: HEMATOCRIT 39.4 % (32.4-45.2); HEMOGLOBIN 13.1 GM/dL (10.7-15.3); MCH 33.6 pg (25.7-33.7); MCHC 33.2 g/dl (32.0-36.0); MEAN CELL VOLUME 101.1 fl (80-96); PLATELET COUNT 192 K/MM3 (134-434); RBC 3.89 M/mm3 (3.60-5.2); RDW 13.7 % (11.6-15.6); WHITE BLOOD COUNT 3.8 K/mm3 (4.0-10.0)
[2020-06-01 15:19] LABS: ALBUMIN 3.8 g/dl (3.4-5.0); BLOOD UREA NITROGEN 6.8 mg/dL (7-18); CALCIUM 8.6 mg/dL (8.5-10.1); POTASSIUM 3.8 mmol/L (3.5-5.1)
[2020-06-01 15:25] LABS: BILIRUBIN,TOTAL 0.5 mg/dL (0.2-1); CREATININE 0.7 mg/dL (0.55-1.3); TOT PROT 8.6 g/dl (6.4-8.2)
--- NOTE | 2020-06-01 17:53 | CONSULT ---
[facility] Psychiatric Consult - Data Date of interview: 06/01/20 Admission source: [facility] Identifying data: Readmission to [address] [place] [address] for this 45y/o AA female, self-referred for detoxification treatment. MIGUEL issues : alcohol, cannabis, nicotine. Patient is single, a mother of two, domiciled, unemployed and supported on [facility] benefits. Substance Abuse History: Discussed with the patient. MIGUEL profile as follows : Smoking history: Current every day smoker. Have you smoked in the past 12 months: Yes. Aproximately how many cigarettes per day: 10. Cigars Per Day: 0. Hx Chewing Tobacco Use: No. Initiated information on smoking cessation: No. - Substances abused. Alcohol. Substance route: Oral. Frequency: Daily. Amount used: HALF PINT [place]OD[place] 3 BEERS 25OZ. Age of first use: 21. Date of last use: 06/01/20. Marijuana/Hashish. Substance route: Smoking. Frequency: Daily. Amount used: 4 BLUNTS. Age of first use: 15. Date of last use: 06/01/20. History of multiple MIGUEL treatment failures. Medical History: Medical history is remarkable for HIV infection since 2006 (non-compliant with ART medications), hypertension and bronchial asthma. Psychiatric History: Patient endorses a history of two psychiatric hospitalizations (2013 + 2014) at [facility] + [facility]. Reportedly diagnosed with Bipolar Disorder. Ms Nieto is no longer followed at the [facility] in [facility]. She has also stopped going to the [facility] clinic sine 2018. Patient has not seen a psychiatrist for months (except when admitted to detox/rehab units at various programs). For maintenance care, the patient has been using ED settings, primary care physicians or providers from [facility] treatment centers for scripts (seroquel). She denies history of suicide attempts. Physical/Sexual Abuse/Trauma History: Patient denies. Additional Comment: Urine drug screen results: THC-Marijuana. Noted. Mental Status Exam - Mental Status Exam Alert and Oriented to: Time, Place, Person Cognitive Function: Good Patient Appearance: Well Groomed (small habitus, short stature) Mood: Irritable Affect: Mood Congruent, Labile Patient Behavior: Fatigued, Appropriate, Cooperative Speech Pattern: Clear, Appropriate Voice Loudness: Normal Thought Process: Goal Oriented Thought Disorder: Not Present Hallucinations: Denies Suicidal Ideation: Denies Insight/Judgement: Poor Sleep: Poorly, Difficulty falling asleep Appetite: Fair, Weight loss Gait/Station: Normal Psychiatric Findings - Problem List ([place] 1, 2,3) (1) Alcohol dependence with uncomplicated intoxication Current Visit: Yes Status: Acute (2) Cannabis dependence Current Visit: Yes Status: Chronic (3) Nicotine dependence Current Visit: Yes Status: Chronic Qualifiers: Nicotine product type: cigarettes Substance use status: in withdrawal Qualified Code(s): F17.213 - Nicotine dependence, cigarettes, with withdrawal (4) Substance induced mood disorder Current Visit: Yes Status: Chronic (5) History of bipolar disorder Current Visit: Yes Status: Chronic (6) Insomnia Current Visit: Yes Status: Chronic (7) Non-compliance Current Visit: Yes Status: Chronic - Initial Treatment Plan Initial Treatment Plan: Psychoeducation. Sleep hygiene. Detoxification. Resumed, at patient's request : seroquel 100 mg po hs (reduced to avoid oversedation). Side effects/benefits discussed with the patient. Consent (verbal) granted to MD. Quintanilla.
[2020-06-01] MEDS ORDERED: QUEtiapine FUMARATE 100 MG TABLET (FP) PO SCH (22:00)
[2020-06-01] MEDS ORDERED: THIAMINE HCL 100 MG TABLET (FP) PO SCH (22:00)
[2020-06-01] MEDS ORDERED: MELATONIN 5 MG TABLETS PO SCH (22:00)
[2020-06-01] MEDS ORDERED: cloNIDine HCL 0.1 MG TABLET PO ONE (23:43)
--- NOTE | 2020-06-01 23:46 | PN ---
S Progress Note Note: Patient's blood pressure is B/P 168/103. Patient is asymptomatic Vital Signs Temperature 97.9 F 06/01/20 21:06 Pulse Rate 85 06/01/20 23:38 Respiratory Rate 18 06/01/20 23:38 Blood Pressure 168/103 H 06/01/20 23:38 O2 Sat by Pulse Oximetry (%) 95 06/01/20 21:06 Action: Clonidine HCL 0.1mg tablet oral ordered
[2020-06-02] MEDS: hydrOXYzine PAMOATE 25 MG CAPSULE (FP) PO SCH ×4 (06:12→18:56)
[2020-06-02] MEDS: chlordiazePOXIDE HCL 25 MG CAPSULE PO SCH ×3 (06:12→18:55)
[2020-06-02] MEDS ORDERED: ELVITEG/COB/EMTRI/TENOF (GENVOYA) TABLET (NF) PO SCH (10:00)
[2020-06-02] MEDS ORDERED: LOSARTAN 50MG/HCTZ 12.5MG 1 TAB (FP) PO SCH (10:00)
[2020-06-02] MEDS ORDERED: ASPIRIN COATED 81 MG TABLET.EC PO SCH (10:00)
[2020-06-02] MEDS ORDERED: NICOTINE 14 MG/24 HOURS TOPICAL PATCH TD SCH (10:00)
[2020-06-02] MEDS: PRENATAL VITAMINS W/ FOLIC ACID TABLET (FP) PO SCH (10:38)
[2020-06-02] MEDS: ALBUTEROL SO4 HFA INHALER IH PRN ×2 (10:44→13:37)
--- NOTE | 2020-06-02 13:15 | PN ---
S CIWA - CIWA Score Nausea/Vomitin-No Nausea/No Vomiting Muscle Tremors: 2 Anxiety: 2 Agitation: 0-Normal Activity Paroxysmal Sweats: 2 Orientation: 0-Oriented Tacttile Disturbances: 0-None Auditory Disturbances: 0-None Visual Disturbances: 0-None Headache: 2-Mild CIWA-Ar Total Score: 8 [facility] Progress Note (SOAP) Subjective: c/o sweats, anxiety, and headache. Objective: 06/02/20 13:14 Vital Signs 06/02/20 06/02/20 06:50 09:52 Temperature 97.5 F L 97.5 F L Pulse Rate 73 78 Respiratory 18 18 Rate Blood Pressure 102/61 162/108 H O2 Sat by Pulse 97 Oximetry (%) Laboratory Last Values WBC 3.8 K/mm3 (4.0-10.0) L 06/01/20 12:30 RBC 3.89 M/mm3 (3.60-5.2) 06/01/20 12:30 Hgb 13.1 GM/dL (10.7-15.3) 06/01/20 12:30 Hct 39.4 % (32.4-45.2) 06/01/20 12:30 MCV 101.1 fl (80-96) H 06/01/20 12:30 MCH 33.6 pg (25.7-33.7) 06/01/20 12:30 MCHC 33.2 g/dl (32.0-36.0) 06/01/20 12:30 RDW 13.7 % (11.6-15.6) 06/01/20 12:30 Plt Count 192 K/MM3 (134-434) 06/01/20 12:30 MPV 9.0 fl (7.5-11.1) 06/01/20 12:30 Sodium 135 mmol/L (136-145) L 06/01/20 12:30 Potassium 3.8 mmol/L (3.5-5.1) 06/01/20 12:30 Chloride 102 mmol/L (98-107) 06/01/20 12:30 Carbon Dioxide 24 mmol/L (21-32) 06/01/20 12:30 Anion Gap 9 MMOL/L (8-16) 06/01/20 12:30 BUN 6.8 mg/dL (7-18) L 06/01/20 12:30 Creatinine 0.7 mg/dL (0.55-1.3) 06/01/20 12:30 Est GFR (CKD-EPI)AfAm 121.27 06/01/20 12:30 Est GFR (CKD-EPI)NonAf 104.64 06/01/20 12:30 Random Glucose 76 mg/dL (74-106) 06/01/20 12:30 Calcium 8.6 mg/dL (8.5-10.1) 06/01/20 12:30 Total Bilirubin 0.5 mg/dL (0.2-1) 06/01/20 12:30 AST 82 U/L (15-37) H 06/01/20 12:30 ALT 38 U/L (13-61) 06/01/20 12:30 Alkaline Phosphatase 120 U/L (45-117) H 06/01/20 12:30 Total Protein 8.6 g/dl (6.4-8.2) H 06/01/20 12:30 Albumin 3.8 g/dl (3.4-5.0) 06/01/20 12:30 Syphilis Serology Non-reactive (NONREACTIVE) 06/01/20 12:30 COVID-19 ([facility]INCENT) Not detected (Not Detected) 06/01/20 12:30 Labs noted. Assessment: 06/02/20 13:15 AOX3, in no acute respiratory distress. Full ROM, ambulating in the unit. Withdrawal symptoms. Plan: continue detox.
--- NOTE | 2020-06-02 17:17 | PN ---
[facility] Progress Note Note: Psychiatry Attending's note (follow-up) : Patient seen. Ambulatory. Steady gait. Irritable and disruptive at times. Intervention : Seroquel 25 mg po bid (10 am + 4 pm). Ms Nieto consents to this plan of care.
[2020-06-02 17:59] VITALS: BP 170/121; PULSE 107; TEMP 98.1
--- NOTE | 2020-06-02 19:37 | DS ---
[facility] Detox Discharge Summary Admission Date: 06/01/20 Discharge Date: 06/02/20 - History Present History: Alcohol Dependence, Cocaine Dependence Pertinent Past History: Asthma, HTN, HIV - Physical Exam Results Vital Signs: Vital Signs Temperature 98.1 F 06/02/20 17:09 Pulse Rate 107 H 06/02/20 17:09 Respiratory Rate 16 06/02/20 17:09 Blood Pressure 170/121 H 06/02/20 17:09 O2 Sat by Pulse Oximetry (%) 96 06/02/20 13:08 Pertinent Admission Physical Exam Findings: withdrawal sx Laboratory Last Values WBC 3.8 K/mm3 (4.0-10.0) L 06/01/20 12:30 RBC 3.89 M/mm3 (3.60-5.2) 06/01/20 12:30 Hgb 13.1 GM/dL (10.7-15.3) 06/01/20 12:30 Hct 39.4 % (32.4-45.2) 06/01/20 12:30 MCV 101.1 fl (80-96) H 06/01/20 12:30 MCH 33.6 pg (25.7-33.7) 06/01/20 12:30 MCHC 33.2 g/dl (32.0-36.0) 06/01/20 12:30 RDW 13.7 % (11.6-15.6) 06/01/20 12:30 Plt Count 192 K/MM3 (134-434) 06/01/20 12:30 MPV 9.0 fl (7.5-11.1) 06/01/20 12:30 Sodium 135 mmol/L (136-145) L 06/01/20 12:30 Potassium 3.8 mmol/L (3.5-5.1) 06/01/20 12:30 Chloride 102 mmol/L (98-107) 06/01/20 12:30 Carbon Dioxide 24 mmol/L (21-32) 06/01/20 12:30 Anion Gap 9 MMOL/L (8-16) 06/01/20 12:30 BUN 6.8 mg/dL (7-18) L 06/01/20 12:30 Creatinine 0.7 mg/dL (0.55-1.3) 06/01/20 12:30 Est GFR (CKD-EPI)AfAm 121.27 06/01/20 12:30 Est GFR (CKD-EPI)NonAf 104.64 06/01/20 12:30 Random Glucose 76 mg/dL (74-106) 06/01/20 12:30 Calcium 8.6 mg/dL (8.5-10.1) 06/01/20 12:30 Total Bilirubin 0.5 mg/dL (0.2-1) 06/01/20 12:30 AST 82 U/L (15-37) H 06/01/20 12:30 ALT 38 U/L (13-61) 06/01/20 12:30 Alkaline Phosphatase 120 U/L (45-117) H 06/01/20 12:30 Total Protein 8.6 g/dl (6.4-8.2) H 06/01/20 12:30 Albumin 3.8 g/dl (3.4-5.0) 06/01/20 12:30 Syphilis Serology Non-reactive (NONREACTIVE) 06/01/20 12:30 COVID-19 ([facility]INCENT) Not detected (Not Detected) 06/01/20 12:30 - Medication Discharge Medications: Ambulatory Orders Albuterol Sulfate Inhaler - [Ventolin HFA Inhaler -] 2 inh IH Q4H PRN #1 inh 03/13/17 Losartan/Hydrochlorothiazide [Losartan-Hctz 50-12.5 mg Tab] 1 each PO DAILY 06/05/17 Elviteg/Cob/Emtri/Tenof Alafen [Genvoya Tablet] 1 each PO DAILY 09/20/18 Aspirin [Aspirin EC] 81 mg PO DAILY 07/06/19 Multivitamin [Multiple Vitamins] 1 each PO DAILY 07/06/19 Quetiapine Fumarate [Seroquel -] 25 mg PO DAILY 10/24/19 Quetiapine Fumarate [Seroquel -] 300 mg PO HS 06/01/20 - Diagnosis (1) Alcohol dependence with uncomplicated intoxication Current Visit: Yes Status: Acute (2) Asthma Current Visit: Yes Status: Chronic Qualifiers: Asthma severity: mild Asthma persistence: intermittent Asthma complication type: with status asthmaticus Qualified Code(s): J45.22 - Mild intermittent asthma with status asthmaticus (3) Bipolar disorder Current Visit: Yes Status: Chronic (4) HIV (human immunodeficiency virus infection) Current Visit: Yes Status: Chronic Qualifiers: HIV symptom status: asymptomatic Qualified Code(s): Z21 - Asymptomatic human immunodeficiency virus [HIV] infection status (5) Nicotine dependence Current Visit: Yes Status: Chronic Qualifiers: Nicotine product type: cigarettes Substance use status: in withdrawal Qualified Code(s): F17.213 - Nicotine dependence, cigarettes, with withdrawal - AMA Did Patient Leave Against Medical Advice: Yes
[2020-06-03] MEDS ORDERED: chlordiazePOXIDE HCL 25 MG CAPSULE PO SCH (05:00)
[2020-06-03] MEDS ORDERED: QUEtiapine FUMARATE 25 MG TABLET PO SCH (10:00)
[2020-06-04] MEDS ORDERED: chlordiazePOXIDE HCL 10 MG CAPSULE PO PRN
[2020-06-04] MEDS ORDERED: chlordiazePOXIDE HCL 10 MG CAPSULE PO SCH (05:00)
[2020-06-05] MEDS ORDERED: chlordiazePOXIDE HCL 10 MG CAPSULE PO SCH (05:00)
[2020-06-06] MEDS ORDERED: chlordiazePOXIDE HCL 10 MG CAPSULE PO ONE (05:00)
== END 2020-06-02 06:05 | disposition left against medical advice (07) | DRG 770 ==
LOC: YASAS 10:13 → Y3N 11:52
PROVIDERS: ADMIT Allergy & Immunology; ATTEND Allergy & Immunology
PROC: HZ2ZZZZ Detoxification Services for Substance Abuse Treatment (ICD-10-PCS; principal; 2020-06-01)
DX: F10.220 Alcohol dependence with intoxication, uncomplicated (principal); F14.20 Cocaine dependence, uncomplicated; F12.20 Cannabis dependence, uncomplicated; F17.213 Nicotine dependence, cigarettes, with withdrawal; F19.282 Other psychoactive substance dependence with psychoactive substance-induced sleep disorder; F19.24 Other psychoactive substance dependence with psychoactive substance-induced mood disorder; Z21 Asymptomatic human immunodeficiency virus [HIV] infection status; I10 Essential (primary) hypertension; J45.909 Unspecified asthma, uncomplicated; R63.4 Abnormal weight loss; Z68.1 Body mass index [BMI] 19.9 or less, adult; Z91.018 Allergy to other foods
CPT/HCPCS: 36415; 80053; 85027; 86780; J0735; U0003

== ENCOUNTER 2021-03-12 12:00 | Inpatient (IN) | payer OTHER ==
[2021-03-12 13:05] VITALS: BMI 19.6
[2021-03-12] MEDS ORDERED: MENTHOL/PHENOL 1 EACH UD MM PRN (14:17)
[2021-03-12] MEDS ORDERED: diazePAM 5 MG TABLET PO PRN (14:17)
[2021-03-12] MEDS ORDERED: MAGNESIUM CITRATE 300 ML BOTTLE PO PRN (14:17)
[2021-03-12] MEDS ORDERED: NICOTINE POLACRILEX 2 MG GUM BUC PRN (14:17)
[2021-03-12] MEDS ORDERED: MAG HYDROX/AL HYDROX/SIMETH 30 ML UNIT-DOSE CUP PO PRN (14:17)
[2021-03-12] MEDS ORDERED: ACETAMINOPHEN 325 MG TABLET (FP) PO PRN ×2 (14:17)
[2021-03-12] MEDS ORDERED: IBUPROFEN 400 MG TABLET (FP) PO PRN (14:17)
[2021-03-12] MEDS ORDERED: BISMUTH SUBSALICYLATE 262 MG/15 ML BTL PO PRN (14:17)
[2021-03-12] MEDS ORDERED: ONDANSETRON *ODT* 4 MG TABLET SL PRN (14:17)
[2021-03-12] MEDS ORDERED: MAGNESIUM HYDROX 2400MG/30ML ORAL SUSPENSION 30 ML CUP PO PRN (14:17)
[2021-03-12] MEDS ORDERED: METHOCARBAMOL 500 MG TABLET PO PRN (14:17)
[2021-03-12] MEDS: NICOTINE 21 MG/24 HOURS TOPICAL PATCH TD SCH (15:27)
[2021-03-12] MEDS: PRENATAL VITAMINS W/ FOLIC ACID TABLET (FP) PO SCH (15:28)
[2021-03-12] MEDS: hydrOXYzine PAMOATE 25 MG CAPSULE (FP) PO SCH ×2 (17:30→23:05)
[2021-03-12] MEDS: diazePAM 5 MG TABLET PO SCH ×2 (17:30→22:09)
[2021-03-12] MEDS: ALBUTEROL SO4 HFA INHALER IH PRN (19:56)
[2021-03-12] MEDS: QUEtiapine FUMARATE 100 MG TABLET (FP) PO SCH (22:09)
[2021-03-12] MEDS: THIAMINE HCL 100 MG TABLET (FP) PO SCH (22:09)
[2021-03-12] MEDS: MELATONIN 5 MG TABLETS PO SCH (22:12)
[2021-03-13] MEDS: diazePAM 5 MG TABLET PO SCH ×2 (05:30→12:31)
[2021-03-13] MEDS: hydrOXYzine PAMOATE 25 MG CAPSULE (FP) PO SCH ×2 (05:31→12:31)
[2021-03-13] MEDS ORDERED: QUEtiapine FUMARATE 50 MG TABLET ONE (08:57)
[2021-03-13] MEDS ORDERED: DICYCLOMINE HCL 10 MG CAPSULE PO ONE (09:38)
[2021-03-13 09:59] LABS: HEMATOCRIT 45.3 % (32.4-45.2); HEMOGLOBIN 15.2 GM/dL (10.7-15.3); MCH 34.7 pg (25.7-33.7); MCHC 33.6 g/dl (32.0-36.0); MEAN PLT VOLUME 10.6 fl (7.5-11.1); PLATELET COUNT 153 K/MM3 (134-434); RBC 4.39 M/mm3 (3.60-5.2); RDW 13.9 % (11.6-15.6); WHITE BLOOD COUNT 3.5 K/mm3 (4.0-10.0)
[2021-03-13 10:04] LABS: BLOOD UREA NITROGEN 3.7 mg/dL (7-18)
[2021-03-13 10:09] LABS: ALBUMIN 4.3 g/dl (3.4-5.0); CALCIUM 9.4 mg/dL (8.5-10.1)
[2021-03-13 10:13] LABS: CREATININE 0.7 mg/dL (0.55-1.3)
[2021-03-13 10:14] LABS: BILIRUBIN,TOTAL 0.6 mg/dL (0.2-1)
[2021-03-13] MEDS: ASPIRIN COATED 81 MG TABLET.EC PO SCH (12:27)
[2021-03-13] MEDS: QUEtiapine FUMARATE 100 MG TABLET (FP) PO SCH (12:27)
[2021-03-13] MEDS: LOSARTAN 50MG/HCTZ 12.5MG 1 TAB PO SCH (12:28)
[2021-03-13] MEDS: MEGESTROL ACETATE 400 MG/10 ML UNIT DOSE CUP PO SCH (12:29)
[2021-03-13] MEDS: ELVITEG/COB/EMTRI/TENOF (GENVOYA) TABLET (NF) PO SCH (12:30)
[2021-03-13] MEDS: NICOTINE 21 MG/24 HOURS TOPICAL PATCH TD SCH (12:30)
[2021-03-13] MEDS: FAMOTIDINE 20 MG TABLET PO SCH ×2 (12:31→22:16)
[2021-03-13] MEDS: PRENATAL VITAMINS W/ FOLIC ACID TABLET (FP) PO SCH (12:31)
[2021-03-13] MEDS ORDERED: LORazepam 1 MG TABLET PO PRN (13:14)
[2021-03-13] MEDS: LORazepam 2 MG TABLET PO SCH ×2 (17:35→22:16)
[2021-03-13] MEDS ORDERED: QUEtiapine FUMARATE 100 MG TABLET (FP) PO SCH (22:00)
[2021-03-13] MEDS: THIAMINE HCL 100 MG TABLET (FP) PO SCH (22:15)
[2021-03-13] MEDS: MELATONIN 5 MG TABLETS PO SCH (22:16)
[2021-03-14] MEDS: LORazepam 1 MG TABLET PO SCH ×4 (05:57→22:32)
[2021-03-14] MEDS ORDERED: diazePAM 5 MG TABLET PO SCH (06:00)
[2021-03-14] MEDS: PRENATAL VITAMINS W/ FOLIC ACID TABLET (FP) PO SCH (10:30)
[2021-03-14] MEDS: FAMOTIDINE 20 MG TABLET PO SCH ×2 (10:31→22:30)
[2021-03-14] MEDS: ELVITEG/COB/EMTRI/TENOF (GENVOYA) TABLET (NF) PO SCH (10:31)
[2021-03-14] MEDS: MEGESTROL ACETATE 400 MG/10 ML UNIT DOSE CUP PO SCH (10:32)
[2021-03-14] MEDS: NICOTINE 21 MG/24 HOURS TOPICAL PATCH TD SCH (10:32)
[2021-03-14] MEDS: LOSARTAN 50MG/HCTZ 12.5MG 1 TAB PO SCH (10:32)
[2021-03-14] MEDS: ASPIRIN COATED 81 MG TABLET.EC PO SCH (10:32)
[2021-03-14] MEDS ORDERED: QUEtiapine FUMARATE 200 MG TABLET PO SCH (22:00)
[2021-03-14] MEDS: THIAMINE HCL 100 MG TABLET (FP) PO SCH (22:30)
[2021-03-14] MEDS: MELATONIN 5 MG TABLETS PO SCH (22:32)
[2021-03-15] MEDS ORDERED: LORazepam 0.5 MG TABLET PO PRN
[2021-03-15] MEDS ORDERED: diazePAM 5 MG TABLET PO SCH (06:00)
[2021-03-15] MEDS: LORazepam 0.5 MG TABLET PO SCH ×3 (06:48→17:50)
[2021-03-15] MEDS: NICOTINE 21 MG/24 HOURS TOPICAL PATCH TD SCH (11:38)
[2021-03-15] MEDS: FAMOTIDINE 20 MG TABLET PO SCH (11:38)
[2021-03-15] MEDS: ASPIRIN COATED 81 MG TABLET.EC PO SCH (11:38)
[2021-03-15] MEDS: MEGESTROL ACETATE 400 MG/10 ML UNIT DOSE CUP PO SCH (11:39)
[2021-03-15] MEDS: LOSARTAN 50MG/HCTZ 12.5MG 1 TAB PO SCH (11:42)
[2021-03-15] MEDS: ELVITEG/COB/EMTRI/TENOF (GENVOYA) TABLET (NF) PO SCH (11:42)
[2021-03-15] MEDS: PRENATAL VITAMINS W/ FOLIC ACID TABLET (FP) PO SCH (11:43)
[2021-03-15 15:20] VITALS: BP 90/54; PULSE 102; TEMP 97.5
[2021-03-15] MEDS: ALBUTEROL SO4 HFA INHALER IH PRN (18:24)
[2021-03-16] MEDS ORDERED: LORazepam 0.5 MG TABLET PO ONE (05:00)
[2021-03-16] MEDS ORDERED: diazePAM 5 MG TABLET PO ONE (06:00)
[2021-03-16 06:08] LABS: SARS-CoV-2 NAA Not Detected (Not Detected)
== END 2021-03-15 19:44 | disposition left against medical advice (07) | DRG 770 ==
LOC: YASAS 12:00 → Y6N 14:04
PROVIDERS: ADMIT Allergy & Immunology; ATTEND Allergy & Immunology
PROC: HZ2ZZZZ Detoxification Services for Substance Abuse Treatment (ICD-10-PCS; principal; 2021-03-12)
DX: F10.230 Alcohol dependence with withdrawal, uncomplicated (principal); F12.10 Cannabis abuse, uncomplicated; F10.220 Alcohol dependence with intoxication, uncomplicated; F17.210 Nicotine dependence, cigarettes, uncomplicated; F31.9 Bipolar disorder, unspecified; F19.282 Other psychoactive substance dependence with psychoactive substance-induced sleep disorder; F19.24 Other psychoactive substance dependence with psychoactive substance-induced mood disorder; Z21 Asymptomatic human immunodeficiency virus [HIV] infection status; B37.0 Candidal stomatitis; I10 Essential (primary) hypertension; J45.909 Unspecified asthma, uncomplicated; R63.4 Abnormal weight loss; R74.01 Elevation of levels of liver transaminase levels; Z68.1 Body mass index [BMI] 19.9 or less, adult; Z91.018 Allergy to other foods
CPT/HCPCS: 36415; 80053; 84450; 85027; 86780; C9803; U0003; U0005

== ENCOUNTER 2021-05-28 10:13 | Inpatient (IN) | payer OTHER ==
[2021-05-28] MEDS ORDERED: MAGNESIUM HYDROX 2400MG/30ML ORAL SUSPENSION 30 ML CUP PO PRN (13:23)
[2021-05-28] MEDS ORDERED: IBUPROFEN 400 MG TABLET (FP) PO PRN (13:23)
[2021-05-28] MEDS ORDERED: MENTHOL/PHENOL 1 EACH UD MM PRN (13:23)
[2021-05-28] MEDS ORDERED: LORazepam 1 MG TABLET PO PRN (13:23)
[2021-05-28] MEDS ORDERED: METHOCARBAMOL 500 MG TABLET PO PRN (13:23)
[2021-05-28] MEDS ORDERED: ONDANSETRON *ODT* 4 MG TABLET SL PRN (13:23)
[2021-05-28] MEDS ORDERED: MAGNESIUM CITRATE 300 ML BOTTLE PO PRN (13:23)
[2021-05-28] MEDS ORDERED: NICOTINE 10 MG CARTRIDGE (INHALER) IH PRN (13:23)
[2021-05-28] MEDS ORDERED: MAG HYDROX/AL HYDROX/SIMETH 30 ML UNIT-DOSE CUP PO PRN (13:23)
[2021-05-28] MEDS ORDERED: BISMUTH SUBSALICYLATE 524 MG/30 ML PO PRN (13:23)
[2021-05-28] MEDS ORDERED: ACETAMINOPHEN 325 MG TABLET (FP) PO PRN ×2 (13:23)
[2021-05-28] MEDS ORDERED: LORazepam 2 MG TABLET PO ONE (13:45)
[2021-05-28] MEDS: NICOTINE 14 MG/24 HOURS TOPICAL PATCH TD SCH (15:30)
[2021-05-28] MEDS: hydrOXYzine PAMOATE 25 MG CAPSULE (FP) PO SCH ×3 (15:33→22:17)
[2021-05-28 17:34] LABS: HEMATOCRIT 38.9 % (32.4-45.2); HEMOGLOBIN 13.4 GM/dL (10.7-15.3); MCH 35.2 pg (25.7-33.7); MCHC 34.4 g/dl (32.0-36.0); MEAN CELL VOLUME 102.5 fl (80-96); MEAN PLT VOLUME 8.7 fl (7.5-11.1); PLATELET COUNT 159 10^3/uL (134-434); RBC 3.79 M/mm3 (3.60-5.2); RDW 14.1 % (11.6-15.6); WHITE BLOOD COUNT 2.6 K/mm3 (4.0-10.0)
[2021-05-28 17:38] LABS: CALCIUM 8.3 mg/dL (8.5-10.1)
[2021-05-28 17:39] LABS: ALBUMIN 3.8 g/dl (3.4-5.0); BLOOD UREA NITROGEN 3.6 mg/dL (7-18)
[2021-05-28] MEDS: LORazepam 2 MG TABLET PO SCH ×2 (17:39→22:17)
[2021-05-28 17:42] LABS: CREATININE 0.6 mg/dL (0.55-1.3)
[2021-05-28 17:43] LABS: BILIRUBIN,TOTAL 0.9 mg/dL (0.2-1); TOT PROT 8.6 g/dl (6.4-8.2)
[2021-05-28] MEDS ORDERED: QUEtiapine FUMARATE 100 MG TABLET (FP) PO ONE (22:00)
[2021-05-28] MEDS: THIAMINE HCL 100 MG TABLET (FP) PO SCH (22:17)
[2021-05-28] MEDS: MELATONIN 5 MG TABLETS PO SCH (22:17)
[2021-05-29] MEDS: LORazepam 2 MG TABLET PO SCH ×4 (06:31→22:54)
[2021-05-29] MEDS: hydrOXYzine PAMOATE 25 MG CAPSULE (FP) PO SCH ×2 (06:31→10:17)
[2021-05-29] MEDS: LOSARTAN 50MG/HCTZ 12.5MG 1 TAB PO SCH (10:18)
[2021-05-29] MEDS: ASPIRIN COATED 81 MG TABLET.EC PO SCH (10:18)
[2021-05-29] MEDS: PRENATAL VITAMINS W/ FOLIC ACID TABLET (FP) PO SCH (10:18)
[2021-05-29] MEDS: NICOTINE 14 MG/24 HOURS TOPICAL PATCH TD SCH (10:20)
[2021-05-29] MEDS: ELVITEG/COB/EMTRI/TENOF (GENVOYA) TABLET (NF) PO SCH (11:10)
[2021-05-29] MEDS ORDERED: hydrOXYzine PAMOATE 25 MG CAPSULE (FP) PO PRN (11:14)
[2021-05-29] MEDS ORDERED: POTASSIUM CHLORIDE TABS 20 MEQ TABLET.ER (FP) PO SCH (11:15)
[2021-05-29] MEDS: POTASSIUM CHLORIDE ORAL LIQUID 20 MEQ/15 ML PO SCH ×2 (12:21→21:11)
[2021-05-29] MEDS: ALBUTEROL SO4 HFA INHALER IH PRN (17:38)
[2021-05-29] MEDS: MELATONIN 5 MG TABLETS PO SCH (21:13)
[2021-05-29] MEDS ORDERED: QUEtiapine FUMARATE 100 MG TABLET (FP) PO SCH (22:00)
[2021-05-29] MEDS: THIAMINE HCL 100 MG TABLET (FP) PO SCH (22:55)
[2021-05-30] MEDS: LORazepam 1 MG TABLET PO SCH ×3 (07:23→19:15)
[2021-05-30] MEDS ORDERED: QUEtiapine FUMARATE 50 MG TABLET PO SCH (10:00)
[2021-05-30] MEDS: ELVITEG/COB/EMTRI/TENOF (GENVOYA) TABLET (NF) PO SCH (10:53)
[2021-05-30] MEDS: POTASSIUM CHLORIDE ORAL LIQUID 20 MEQ/15 ML PO SCH (10:53)
[2021-05-30] MEDS: ASPIRIN COATED 81 MG TABLET.EC PO SCH (10:54)
[2021-05-30] MEDS: NICOTINE 14 MG/24 HOURS TOPICAL PATCH TD SCH (10:54)
[2021-05-30] MEDS: LOSARTAN 50MG/HCTZ 12.5MG 1 TAB PO SCH (10:54)
[2021-05-30] MEDS: PRENATAL VITAMINS W/ FOLIC ACID TABLET (FP) PO SCH (10:54)
[2021-05-30] MEDS: ALBUTEROL SO4 HFA INHALER IH PRN ×2 (10:58→17:17)
[2021-05-30 17:08] VITALS: BP 133/101; PULSE 100; TEMP 96.8
[2021-05-31] MEDS ORDERED: LORazepam 0.5 MG TABLET PO PRN
[2021-05-31] MEDS ORDERED: LORazepam 0.5 MG TABLET PO SCH (05:00)
[2021-06-01] MEDS ORDERED: LORazepam 0.5 MG TABLET PO ONE (05:00)
== END 2021-05-30 19:52 | disposition left against medical advice (07) | DRG 770 ==
LOC: YASAS 10:13 → Y6N 14:10 → Y3N 14:26
PROVIDERS: ADMIT Allergy & Immunology; ATTEND Allergy & Immunology
PROC: HZ2ZZZZ Detoxification Services for Substance Abuse Treatment (ICD-10-PCS; principal; 2021-05-28)
DX: F10.230 Alcohol dependence with withdrawal, uncomplicated (principal); F12.20 Cannabis dependence, uncomplicated; F17.213 Nicotine dependence, cigarettes, with withdrawal; F31.81 Bipolar II disorder; F39 Unspecified mood [affective] disorder; Z21 Asymptomatic human immunodeficiency virus [HIV] infection status; I10 Essential (primary) hypertension; J45.909 Unspecified asthma, uncomplicated; R74.8 Abnormal levels of other serum enzymes; Z91.010 Allergy to peanuts; Z91.018 Allergy to other foods
CPT/HCPCS: 36415; 80053; 85027; 86780; C9803; U0003; U0005

== ENCOUNTER 2021-11-11 13:38 | Inpatient (IN) | payer OTHER ==
[2021-11-11] MEDS ORDERED: ACETAMINOPHEN 325 MG TABLET (FP) PO PRN ×2 (15:04)
[2021-11-11] MEDS ORDERED: IBUPROFEN 400 MG TABLET (FP) PO PRN (15:04)
[2021-11-11] MEDS ORDERED: MAGNESIUM HYDROX 2400MG/30ML ORAL SUSPENSION 30 ML CUP PO PRN (15:04)
[2021-11-11] MEDS ORDERED: MAGNESIUM CITRATE 300 ML BOTTLE PO PRN (15:04)
[2021-11-11] MEDS ORDERED: BISMUTH SUBSALICYLATE 262 MG/15 ML BTL PO PRN (15:04)
[2021-11-11] MEDS ORDERED: chlordiazePOXIDE HCL 25 MG CAPSULE PO PRN (15:04)
[2021-11-11] MEDS ORDERED: MENTHOL/PHENOL 1 EACH UD MM PRN (15:04)
[2021-11-11] MEDS ORDERED: NICOTINE 10 MG CARTRIDGE (INHALER) IH PRN (15:04)
[2021-11-11] MEDS ORDERED: ONDANSETRON *ODT* 4 MG TABLET SL PRN (15:04)
[2021-11-11] MEDS ORDERED: MAG HYDROX/AL HYDROX/SIMETH 30 ML UNIT-DOSE CUP PO PRN (15:04)
[2021-11-11 15:20] VITALS: BMI 21.2
[2021-11-11] MEDS: hydrOXYzine PAMOATE 25 MG CAPSULE (FP) PO SCH ×2 (17:38→22:19)
[2021-11-11] MEDS: ALBUTEROL SO4 HFA INHALER IH PRN (17:56)
[2021-11-11] MEDS: THIAMINE HCL 100 MG TABLET (FP) PO SCH (22:19)
[2021-11-11] MEDS: MELATONIN 5 MG TABLETS PO SCH (22:19)
[2021-11-11] MEDS: chlordiazePOXIDE HCL 25 MG CAPSULE PO SCH (22:20)
[2021-11-11] MEDS: METHOCARBAMOL 500 MG TABLET PO PRN (22:21)
[2021-11-12] MEDS: hydrOXYzine PAMOATE 25 MG CAPSULE (FP) PO SCH ×5 (05:32→22:10)
[2021-11-12] MEDS: chlordiazePOXIDE HCL 25 MG CAPSULE PO SCH ×4 (05:33→22:09)
[2021-11-12] MEDS: ALBUTEROL SO4 HFA INHALER IH PRN ×2 (05:35→20:20)
[2021-11-12] MEDS: ELVITEG/COB/EMTRI/TENOF (GENVOYA) TABLET (NF) PO SCH (07:48)
[2021-11-12] MEDS: ASPIRIN COATED 81 MG TABLET.EC PO SCH (10:06)
[2021-11-12] MEDS: LOSARTAN 50MG/HCTZ 12.5MG 1 TAB PO SCH (10:06)
[2021-11-12] MEDS: PRENATAL VITAMINS W/ FOLIC ACID TABLET (FP) PO SCH (10:07)
[2021-11-12 12:13] LABS: HEMATOCRIT 41.8 % (32.4-45.2); HEMOGLOBIN 14.1 GM/dL (10.7-15.3); MCH 33.1 pg (25.7-33.7); MCHC 33.7 g/dl (32.0-36.0); MEAN CELL VOLUME 98.3 fl (80-96); MEAN PLT VOLUME 8.6 fl (7.5-11.1); PLATELET COUNT 188 10^3/uL (134-434); RBC 4.25 M/mm3 (3.60-5.2); RDW 12.9 % (11.6-15.6); WHITE BLOOD COUNT 2.9 K/mm3 (4.0-10.0)
[2021-11-12 12:19] LABS: ALBUMIN 3.2 g/dl (3.4-5.0); BLOOD UREA NITROGEN 5.4 mg/dL (7-18); CALCIUM 8.6 mg/dL (8.5-10.1)
[2021-11-12 12:22] LABS: CREATININE 0.6 mg/dL (0.55-1.3)
[2021-11-12 12:24] LABS: BILIRUBIN,TOTAL 1.2 mg/dL (0.2-1); TOT PROT 7.7 g/dl (6.4-8.2)
[2021-11-12] MEDS: METHOCARBAMOL 500 MG TABLET PO PRN (22:10)
[2021-11-12] MEDS: MELATONIN 5 MG TABLETS PO SCH (22:14)
[2021-11-12] MEDS: THIAMINE HCL 100 MG TABLET (FP) PO SCH (22:15)
[2021-11-13] MEDS ORDERED: cloNIDine HCL 0.1 MG TABLET PO ONE (00:10)
[2021-11-13] MEDS: hydrOXYzine PAMOATE 25 MG CAPSULE (FP) PO SCH ×3 (06:07→15:44)
[2021-11-13] MEDS: chlordiazePOXIDE HCL 25 MG CAPSULE PO SCH ×2 (06:07→10:19)
[2021-11-13] MEDS ORDERED: POTASSIUM CHLORIDE TABS 20 MEQ TABLET.ER (FP) PO SCH (10:00)
[2021-11-13] MEDS ORDERED: QUEtiapine FUMARATE 50 MG TABLET PO SCH ×2 (10:15→22:00)
[2021-11-13] MEDS: LOSARTAN 50MG/HCTZ 12.5MG 1 TAB PO SCH (10:23)
[2021-11-13] MEDS: PRENATAL VITAMINS W/ FOLIC ACID TABLET (FP) PO SCH (10:23)
[2021-11-13] MEDS: ELVITEG/COB/EMTRI/TENOF (GENVOYA) TABLET (NF) PO SCH (10:24)
[2021-11-13] MEDS: ASPIRIN COATED 81 MG TABLET.EC PO SCH (10:24)
[2021-11-13 12:53] VITALS: BP 122/89; PULSE 96; TEMP 97.2
[2021-11-14] MEDS ORDERED: chlordiazePOXIDE HCL 10 MG CAPSULE PO PRN
[2021-11-14] MEDS ORDERED: chlordiazePOXIDE HCL 10 MG CAPSULE PO SCH (05:00)
[2021-11-15] MEDS ORDERED: chlordiazePOXIDE HCL 10 MG CAPSULE PO SCH (05:00)
[2021-11-16] MEDS ORDERED: chlordiazePOXIDE HCL 10 MG CAPSULE PO ONE (05:00)
== END 2021-11-13 16:02 | disposition left against medical advice (07) | DRG 770 ==
LOC: YASAS 13:38 → Y3N 16:22
PROVIDERS: ADMIT Allergy & Immunology; ATTEND Allergy & Immunology
PROC: HZ2ZZZZ Detoxification Services for Substance Abuse Treatment (ICD-10-PCS; principal; 2021-11-11)
DX: F10.230 Alcohol dependence with withdrawal, uncomplicated (principal); F12.20 Cannabis dependence, uncomplicated; F17.210 Nicotine dependence, cigarettes, uncomplicated; F10.24 Alcohol dependence with alcohol-induced mood disorder; F19.24 Other psychoactive substance dependence with psychoactive substance-induced mood disorder; F31.81 Bipolar II disorder; G47.00 Insomnia, unspecified; I10 Essential (primary) hypertension; I25.2 Old myocardial infarction; J45.20 Mild intermittent asthma, uncomplicated; Z91.010 Allergy to peanuts; Z91.018 Allergy to other foods; Z91.19 Patient's noncompliance with other medical treatment and regimen
CPT/HCPCS: 36415; 80053; 85027; 86780; 93005; 93010; C9803; J0735; U0003; U0005

== ENCOUNTER 2022-12-30 10:42 | Inpatient (IN) | payer OTHER ==
[2022-12-30 10:57] VITALS: BMI 16.2
[2022-12-30] MEDS ORDERED: DICYCLOMINE HCL 10 MG CAPSULE PO PRN (11:32)
[2022-12-30] MEDS ORDERED: IBUPROFEN 600 MG TABLET (FP) PO PRN (11:32)
[2022-12-30] MEDS ORDERED: guaiFENesin 600 MG TABLET.ER (FP) PO PRN (11:32)
[2022-12-30] MEDS ORDERED: hydrOXYzine PAMOATE 25 MG CAPSULE (FP) PO PRN (11:32)
[2022-12-30] MEDS ORDERED: ONDANSETRON *ODT* 4 MG TABLET SL PRN (11:32)
[2022-12-30] MEDS ORDERED: POLYETHYLENE GLYCOL (HEALTHYLAX) 3350 17 GM PACKET PO PRN (11:32)
[2022-12-30] MEDS ORDERED: NALOXONE HCL (KLOXXADO) 8 MG SPRAY NS PRN (11:32)
[2022-12-30] MEDS ORDERED: BISMUTH SUBSALICYLATE 262 MG/15 ML BTL PO PRN (11:32)
[2022-12-30] MEDS ORDERED: NICOTINE 10 MG CARTRIDGE (INHALER) IH PRN (11:32)
[2022-12-30] MEDS ORDERED: BENZOCAINE/MENTHOL (CHLORASEPTIC ) LOZENGE MM PRN (11:32)
[2022-12-30] MEDS ORDERED: MAGNESIUM HYDROX 2400MG/30ML ORAL SUSPENSION 30 ML CUP PO PRN (11:32)
[2022-12-30] MEDS ORDERED: BENZONATATE 200 MG CAPSULE PO PRN (11:32)
[2022-12-30] MEDS ORDERED: LOPERAMIDE HCL 2 MG CAPSULE PO PRN (11:32)
[2022-12-30] MEDS ORDERED: METHOCARBAMOL 500 MG TABLET PO PRN (11:32)
[2022-12-30] MEDS ORDERED: ACETAMINOPHEN 325 MG TABLET (FP) PO PRN (11:32)
[2022-12-30] MEDS ORDERED: MAG HYDROX/AL HYDROX/SIMETH 30 ML UNIT-DOSE CUP PO PRN (11:32)
[2022-12-30] MEDS ORDERED: NALOXONE HCL 0.4 MG/ML VIAL IM PRN (11:32)
[2022-12-30] MEDS ORDERED: IBUPROFEN 400 MG TABLET (FP) PO PRN (11:32)
[2022-12-30] MEDS ORDERED: chlordiazePOXIDE HCL 25 MG CAPSULE PO PRN (11:32)
[2022-12-30] MEDS ORDERED: NICOTINE 14 MG/24 HOURS TOPICAL PATCH TD SCH (11:45)
[2022-12-30] MEDS ORDERED: PRENATAL VITAMINS W/ FOLIC ACID TABLET (FP) PO SCH (11:45)
[2022-12-30] MEDS ORDERED: ALBUTEROL SO4 HFA INHALER IH ONE (16:54)
[2022-12-30] MEDS ORDERED: chlordiazePOXIDE HCL 25 MG CAPSULE PO SCH (17:00)
[2022-12-30] MEDS ORDERED: ALBUTEROL SO4 HFA INHALER IH PRN (17:03)
[2022-12-30 17:16] VITALS: BP 134/86; PULSE 87; RESP 17; TEMP 97.7
[2022-12-30 17:22] LABS: HEMATOCRIT 37.3 % (32.4-45.2); HEMOGLOBIN 12.5 GM/dL (10.7-15.3); MCH 34.2 pg (25.7-33.7); MCHC 33.4 g/dl (32.0-36.0); MEAN CELL VOLUME 102.3 fl (80-96); PLATELET COUNT 135 10^3/uL (134-434); RBC 3.65 M/mm3 (3.60-5.2); RDW 13.4 % (11.6-15.6); WHITE BLOOD COUNT 2.1 K/mm3 (4.0-10.0)
[2022-12-30 17:27] LABS: CHLORIDE 100 mmol/L (98-107); SODIUM 133 mmol/L (136-145)
[2022-12-30 17:30] LABS: ALBUMIN 3.2 g/dl (3.4-5.0); BLOOD UREA NITROGEN 4.3 mg/dL (7-18); CALCIUM 8.5 mg/dL (8.5-10.1); CO2 28 mmol/L (21-32)
[2022-12-30 17:31] LABS: GLUCOSE,RANDOM 89 mg/dL (74-106)
[2022-12-30 17:33] LABS: CREATININE 0.5 mg/dL (0.55-1.3); SGOT/AST 104 U/L (15-37); SGPT/ALT 55 U/L (13-61)
[2022-12-30 17:34] LABS: TOT PROT 7.6 g/dl (6.4-8.2)
[2022-12-30 17:35] LABS: BILIRUBIN,TOTAL 0.6 mg/dL (0.2-1)
[2022-12-30 17:36] LABS: ALK PHOS 137 U/L (45-117)
[2022-12-30 17:41] LABS: ANION GAP 6 MMOL/L (8-16)
[2022-12-30] MEDS ORDERED: QUEtiapine FUMARATE 100 MG TABLET (FP) PO SCH (20:00)
[2022-12-30] MEDS ORDERED: QUEtiapine FUMARATE 100 MG TABLET (FP) PO ONE (20:00)
[2022-12-30] MEDS ORDERED: THIAMINE HCL 100 MG TABLET (FP) PO SCH (22:00)
[2022-12-30] MEDS ORDERED: MELATONIN 5 MG TABLETS PO SCH (22:00)
[2023-01-01] MEDS ORDERED: chlordiazePOXIDE HCL 25 MG CAPSULE PO SCH (05:00)
[2023-01-02] MEDS ORDERED: chlordiazePOXIDE HCL 10 MG CAPSULE PO PRN
[2023-01-02] MEDS ORDERED: chlordiazePOXIDE HCL 10 MG CAPSULE PO SCH (05:00)
[2023-01-03] MEDS ORDERED: chlordiazePOXIDE HCL 10 MG CAPSULE PO SCH (05:00)
[2023-01-04] MEDS ORDERED: chlordiazePOXIDE HCL 10 MG CAPSULE PO ONE (05:00)
== END 2022-12-30 18:35 | disposition left against medical advice (07) | DRG 770 ==
LOC: YASAS 10:42 → Y3N 11:24
PROVIDERS: ADMIT Allergy & Immunology; ATTEND Surgery
PROC: HZ2ZZZZ Detoxification Services for Substance Abuse Treatment (ICD-10-PCS; principal; 2022-12-30)
DX: F10.230 Alcohol dependence with withdrawal, uncomplicated (principal); F12.20 Cannabis dependence, uncomplicated; F17.210 Nicotine dependence, cigarettes, uncomplicated; F31.9 Bipolar disorder, unspecified; B20 Human immunodeficiency virus [HIV] disease; Z79.899 Other long term (current) drug therapy; E87.6 Hypokalemia; I10 Essential (primary) hypertension; J45.909 Unspecified asthma, uncomplicated
CPT/HCPCS: 36415; 80053; 81025; 82140; 85027; 86780; C9803-CS; U0003; U0005